=== PATIENT | female | born 1990 | race Caucasian/White ===

== ENCOUNTER 2022-08-16 16:03 | Inpatient (IN) | payer BC, SELFPAY ==
[2022-08-16] VITALS (18 sets, daily range): BP systolic 109–152; BP diastolic 43–88; PULSE 87–117; RESP 18; TEMP 36.8–36.9; BMI 41.5
--- NOTE | 2022-08-16 16:25 | LDADM ---
This patient, Fernanda Chong, was admitted to Labor/Delivery/Recovery 107 on 08/16/22 at 16:03. Plans for labor, pain management and were discussed with patient. Patient/family oriented to hospital policies and general routines including ID bracelet, bed and alarms, visiting hours, pain management, procedures, bathroom and other care routines, personal items, smoking policy, room service/diet and guest tray routines, security routines, and visiting hours. Patient/Family are encouraged to report perceived risks to care and to ask questions if they do not understand what they are told or what they should do. See OBIX for further documentation.
[2022-08-16 16:44] LABS: Basophils Percent Auto 0.2 % (0.2-1.2); Eosinophils Absolute Auto 0.1 K/mm3 (0-0.3); Eosinophils Percent Auto 0.5 % (0-4.4); Hematocrit 36.2 % (37.0-47.0); Hemoglobin 12.7 g/dL (12.0-15.0); Immature Granulocyte Absolute 0.08 K/mm3 (0.00-0.031); Immature Granulocyte Percent A 0.7 % (0-0.5); Lymphocytes Absolute Auto 1.75 K/mm3 (0.9-3.2); Lymphocytes Percent Auto 15.7 % (18.3-44.2); Mean Corpuscular HGB Conc 35.1 g/dl (32-36); Mean Corpuscular Hemoglobin 31.1 pg (26-34); Mean Corpuscular Volume 88.5 fl (80-100); Mean Platelet Volume 11.8 fl (7.4-10.4); Monocytes Absolute Auto 0.6 K/mm3 (0.1-0.6); Monocytes Percent Auto 5.6 % (2.6-8.5); Neutrophils Absolute Auto 8.6 K/mm3 (1.3-6.7); Neutrophils Percent Auto 77.3 % (45.5-73.1); Platelet Count Result 195 k/mm3 (150-375); Red Blood Count 4.09 M/mm3 (4.2-5.4); Red Cell Distribution Width 14.8 % (11.5-14.5); White Blood Count 11.2 K/mm3 (4.5-10.0)
[2022-08-16 16:53] LABS: Uric Acid 4.6 mg/dL (2.5-7.5)
[2022-08-16 16:54] LABS: Alanine Aminotransferase 18 U/L (6-35); Albumin Level 4.1 g/dL (3.5-5.1); Alkaline Phosphatase 212 U/L (38-126); Anion Gap 8 mmol/L (8-16); Aspartate Amino Transferase 23 U/L (14-36); Bilirubin,Total 0.6 mg/dL (0.2-1.3); Blood Urea Nitrogen 5 mg/dL (7-17); Calcium 8.8 mg/dL (8.4-10.2); Carbon Dioxide 20 mmol/L (22-30); Chloride 106 mmol/L (98-107); Estimated CRCL calculation 153 ml/min; Estimated Glomerular Filt Rate > 60; Glucose 111 mg/dL (65-110); Sodium 134 mmol/L (137-145)
[2022-08-16] MEDS: DINOPROSTONE 10 MG VAG INSERT VAGINAL (16:58)
--- NOTE | 2022-08-16 18:03 | WPDANESEPP ---
Anes - Eval Pre Procedure Procedure: Labor epidural Date/Time: 08/16/22 18:03 Surgeon: nan Preop Diagnosis: Abdominal pain with contractions Pre Op Diagnosis: IOL Patient Data Age: 31 Gender: F Height: 1.57 m Weight: 103 kg Last Vital Signs Pulse 97 08/16/22 18:01 BP 142/86 H 08/16/22 18:01 O2 Del Method Room Air 08/16/22 16:24 Allergies Allergy/AdvReac Type Severity Reaction Status Date / Time Sulfa (Sulfonamide Allergy Hives Verified 08/04/22 15:37 Antibiotics) caffeine AdvReac Redness of Verified 08/04/22 15:37 Skin latex AdvReac Itching Verified 08/04/22 15:57 azothiaprine Allergy Nausea and Uncoded 08/04/22 15:37 Vomiting Home Medications Medication Instructions Recorded Confirmed Type docosahexaenoic acid 200 mg capsule 200 mg PO DAILY 08/04/22 08/04/22 History gabapentin 600 mg tablet 600 mg PO HS 08/04/22 08/04/22 History pantoprazole 40 mg tablet,delayed 40 mg PO QAM 08/04/22 08/04/22 History release prednisone 10 mg tablets in a dose 5 - 10 mg PO DAILY 08/04/22 08/04/22 History pack Laboratory Tests 08/16/22 08/16/22 08/16/22 16:20 16:20 16:20 WBC 11.2 K/mm3 H K/mm3 (4.5-10.0) RBC 4.09 M/mm3 L M/mm3 (4.2-5.4) Hgb 12.7 g/dL g/dL (12.0-15.0) Hct 36.2 % L % (37.0-47.0) MCV 88.5 fl fl (80-100) MCH 31.1 pg pg (26-34) MCHC 35.1 g/dl g/dl (32-36) RDW 14.8 % H % (11.5-14.5) Plt Count 195 k/mm3 k/mm3 (150-375) MPV 11.8 fl H fl (7.4-10.4) Immature Gran % (Auto) 0.7 % H % (0-0.5) Neut % (Auto) 77.3 % H % (45.5-73.1) Lymph % (Auto) 15.7 % L % (18.3-44.2) [place] % (Auto) 5.6 % % (2.6-8.5) Eos % (Auto) 0.5 % % (0-4.4) Baso % (Auto) 0.2 % % (0.2-1.2) Lymph # (Auto) 1.75 K/mm3 K/mm3 (0.9-3.2) [place] # (Auto) 0.6 K/mm3 K/mm3 (0.1-0.6) Eos # (Auto) 0.1 K/mm3 K/mm3 (0-0.3) Baso # (Auto) 0.0 K/mm3 K/mm3 (0.0-0.1) Abs Immat Gran (auto) 0.08 K/mm3 H K/mm3 (0.00-0.031) Absolute Neuts (auto) 8.6 K/mm3 H K/mm3 (1.3-6.7) Absolute Nucleated RBC 0.0 K/mm3 K/mm3 (0.0-0.012) Nucleated RBC % 0.0 % % (0.0-0.2) Sodium Potassium Chloride Carbon Dioxide Anion Gap BUN Creatinine Estim Creat Clear Calc Estimated GFR Glucose Uric Acid 4.6 mg/dL mg/dL (2.5-7.5) Calcium Total Bilirubin AST ALT Alkaline Phosphatase Total Protein Albumin RPR Pending 08/16/22 16:20 WBC RBC Hgb Hct MCV MCH MCHC RDW Plt Count MPV Immature Gran % (Auto) Neut % (Auto) Lymph % (Auto) [place] % (Auto) Eos % (Auto) Baso % (Auto) Lymph # (Auto) [place] # (Auto) Eos # (Auto) Baso # (Auto) Abs Immat Gran (auto) Absolute Neuts (auto) Absolute Nucleated RBC Nucleated RBC % Sodium 134 mmol/L L mmol/L (137-145) Potassium 4.0 mmol/L mmol/L (3.4-5.0) Chloride 106 mmol/L mmol/L (98-107) Carbon Dioxide 20 mmol/L L mmol/L (22-30) Anion Gap 8 mmol/L mmol/L (8-16) BUN 5 mg/dL L mg/dL (7-17) Creatinine 0.50 mg/dL L mg/dL (0.7-1.0) Estim Creat Clear Calc 153 ml/min ml/min Estimated GFR > 60 (59 - ) Glucose 111 mg/dL H mg/dL (65-110) Uric Acid Calcium 8.8 mg/dL mg/dL (8.4-10.2) Total Bilirubin 0.6 mg/dL mg/dL (0.2-1.3) AST 23 U/L U/L (14-36) ALT 18 U/L U/L (6-35) Alkaline Phosphatase 212 U/L H U/L (38-126) Total Protein 8.0 g/dL g/dL (6.3-8.2) Albumin 4.1 g/
[2022-08-16] MEDS: GABAPENTIN 300 MG CAPSULE 600 MG PO (23:08)
[2022-08-17] VITALS (229 sets, daily range): BP systolic 85–163; BP diastolic 45–101; PULSE 52–150; RESP 16; TEMP 36.3–37.3; O2SAT 75–100
[2022-08-17] MEDS: OXYTOCIN 30 UNITS/NS 500 ML 30 UNITS/500 ML BAG 6 UNITS IV CONT (06:26)
[2022-08-17] MEDS: LACTATED RINGERS 1,000 ML 125 ML IV CONT ×3 (06:26→19:30)
--- NOTE | 2022-08-17 07:20 | WPDOBADMIT ---
Obstetrics - Admit Note Admission Note: record reviewed. No pertinent additions to the history and/or any subsequent changes in the physical findings that are not consistent with the expected course of the were found. Pt admitted yesterday for IOL, GHTN, bp's normotensive currently with category 1 heart tracing, AROM moderate amount of clear odorless fluid, SVE 1/50/-2, anticipate vaginal delivery Additions to the history and/or subsequent changes in the physical findings follow. None.
[2022-08-17 09:32] LABS: Rapid Plasma Reagin Non-Reactive (NonReactive)
[2022-08-18] VITALS (228 sets, daily range): BP systolic 97–135; BP diastolic 35–103; PULSE 72–173; RESP 16–20; TEMP 36.6–38.6; O2SAT 97–100
[2022-08-18] MEDS: LACTATED RINGERS 1,000 ML 125 ML IV CONT ×3 (04:00→13:05)
[2022-08-18] MEDS: AMPICILLIN 2 GM/NS 100 ML 2 GM/100 ML BAG IVPB (06:14)
[2022-08-18] MEDS: GENTAMICIN 80MG/SOD CHL 50 ML 80 MG/50 ML BAG 100 MG IVPB (08:32)
[2022-08-18] MEDS: SODIUM CHLORIDE 0.9% IV 300 ML 600 ML I-UTERINE (08:36)
--- NOTE | 2022-08-18 08:46 | PM.OBPNVD ---
OB - PN: Subj Subjective Date/time seen: 08/18/22 [id number] 1 AT 37 WEEKS INDUCED FOR GESTATIONAL HYPERTENSION / POSSIBLE PREECLAMPSIA. Has had some diminished variability of the heart rate tracing. There is still an overall reassuring her heart rate tracing. There has been an persistent late decelerations ovary significant period of time. There was also an elevated body temperature which may have an affect on the variability. Antibiotics have been started. delivery was discussed with the patient. We agreed to continue observation continue induction of labor. She has made some significant progress in the proceeding several hours. Reassess in 3-1/2 hours in consider course at that time. Expectant management and consideration of changes in the status. OB - PN: Obj Data Labs 08/16/22 16:20 08/16/22 16:20 Labs: Laboratory Results - last 24 hr 08/16/22 16:20 RPR Non-reactive OB - PN A/P Assessment and Plan (1) Gestational hypertension: Code(s): O13.9 - Gestational [-induced] hypertension without significant proteinuria, unspecified trimester Status: Acute (2) : Code(s): Z34.90 - Encounter for supervision of normal , unspecified, unspecified trimester Status: Acute Time Spent With Patient Time: Total time spent is greater than 50% in coordination of care (as documented) at patient's floor/unit and/or counseling patient:
[2022-08-18] MEDS: AMPICILLIN 1 GM/NS 50 ML 1 GM/50 ML BAG IVPB (10:23)
[2022-08-18] MEDS: OXYTOCIN 30 UNITS/NS 500 ML 30 UNITS/500 ML BAG 999 UNITS IV CONT (14:44)
--- NOTE | 2022-08-18 14:51 | PM.OBPRVD ---
OB - Delivery Note Procedure Delivery date: 08/18/22 Procedure: Events: Gestational Hypertension Induction method: AROM, Per Pitocin Protocol and Per Cervidil Protocol Delivery monitor: External FHT and Internal Uterine Episiotomy description: None Laceration Description: Perineal - 2nd Degree Delivery repair: vicryl Quantitative Blood Loss (ml): 67 Anesthesia type: Epidural Disposition: Floor Complications: none Baby Date of : 08/18/22 Time of : 14:22 Weeks of gestation at delivery: 37 Weight (pounds): 6 Weight (ounces): 1 presentation: vertex Placenta delivery description: Spontaneous Cord Vessel Description: 3 Vessels
[2022-08-18] MEDS: IBUPROFEN 600 MG TABLET PO (20:10)
[2022-08-18] MEDS: GABAPENTIN 300 MG CAPSULE 600 MG PO (20:56)
[2022-08-19 04:55] VITALS: BP 107/62; PULSE 81; RESP 20; TEMP 36.4; O2SAT 98
[2022-08-19 05:22] LABS: Hemoglobin 11.4 g/dL (12.0-15.0)
[2022-08-19] MEDS: PANTOPRAZOLE 40 MG TABLET PO (10:15)
[2022-08-19] MEDS: IBUPROFEN 600 MG TABLET PO (10:15)
[2022-08-19] MEDS: MULTIVIT/MIN/PREN/FOL AC/IRON TABLET 1 TAB PO (10:15)
--- NOTE | 2022-08-19 10:34 | PM.OBPNVD ---
OB - PN: Subj Subjective Date/time seen: 08/19/22 10:34 Patient comments: no complaints baby status: doing well OB - PN: Obj Data Labs 08/19/22 05:06 08/16/22 16:20 Labs: Laboratory Results - last 24 hr 08/19/22 05:06 Hgb 11.4 L Hct 34.0 L OB - PN A/P Plan day: 1 Plan: routine care Comments: Pt desires discharge to home d/t baby at [facility]. She has agreed to stay until 24 hours and if she is stable we can consider discharge. I had a very in depth conversation about pih precautions. She will monitor bp at home and call if any elevation, if any symptoms, or something doesn't feel right to her. She will return tomorrow morning for pp bp check. Pt verbalized understanding and will let us know if there is any problem. Time Spent With Patient Time: Total time spent is greater than 50% in coordination of care (as documented) at patient's floor/unit and/or counseling patient: Time with patient: less than 15 minutes Review of Systems Review of Systems: All systems reviewed & are unremarkable except as noted in HPI and below Exam Narrative: Fundus firm and vaginal flow controlled. No lower ext redness, warmth, or edema. Negative homans. Denies h/a, v/d or e/p. Reflexes normal. Const: General: comfortable Chest: Breast/axilla inspection: normal inspection of the breasts Resp: Effort & Inspection: normal respiratory effort Cardio: Rate: regular rate GI: GI Palp: Yes Soft to palpation Psych: Appearance: grossly normal Affect: normal affect Attitude: cooperative Thought content: Yes Normal thought content present Judgement: Good judgement present (Psych)
--- NOTE | 2022-08-19 10:37 | PM.OBDSVD ---
DS: Admitting Diagnosis Discharge Date 07/19/22 Admitting Diagnosis Induction of labor OB - DS: Summary OB Procedures : PIH Mgmt OB Procedures Intrapartum: Spontaneous Vag Delivery OB Procedures: : None Time Spent with Patient Time attestation: Total time spent providing and/or coordinating discharge services: DS: Data Data Completed and Pending Pending studies at discharge: Pending at discharge 08/18/22 14:33 Surgical [PTH] Routine Labs on day of discharge: Labs from last 24 hours 08/19/22 05:06 Hgb 11.4 L Hct 34.0 L Discharge Plan Discharge Attending physician on discharge: Selina Jackman Discharging Clinician: Shante Lal Patient Disposition: Home, Self-Care Activity: pelvic rest Diet: as tolerated Discharge Instructions: Education: Mom and Baby Guide Given to: Mother Follow-Up: Call your delivering provider's office for an appointment to be seen in: 4 Weeks Mom should come to the [facility] for the follow-up appointment. Appointment Date/Time: August 20, 2022 at 9:00 am What to expect at your follow-up visit: Blood Pressure Check Physical Assessment Call [phone] if you are unable to keep your appointment time. BREAST CARE: * Wear a snug supportive bra. * For engorgement discomfort: Breast Feeding: * Apply warm moist washcloths * Express milk as needed to relieve engorgement * Wear loose clothing Bottle Feeding: * May apply ice packs * For sore nipples: * Identify correct latch-on * Apply warm moist washcloths before and after nursing * Air dry nipples after nursing * May apply Lansinoh cream to nipples EPISIOTOMY/PERINEAL CARE: * Until bleeding stops, use your ranjit bottle after urinating * Change your pad frequently throughout the day * You may take sitz baths several times a day (fill your bathtub with warm water and soak for 20 minutes.) Do NOT bathe in the water * No tub baths until seen by your physician - You may shower ACTIVITY: * Rest as much as possible. * Do not exercise or lift anything heavier than your baby * Avoid stairs or driving as much as possible for about 2 weeks. * Do not put anything into the vagina. No douching, tampons, or sexual activity until seen by physician. NOTIFY PHYSICIAN IF YOU HAVE ANY QUESTIONS OR IF ANY OF THE FOLLOWING SYMPTOMS OCCUR: * If your vaginal area becomes red, swollen, or more painful than what you have experienced in the hospital. * If your vaginal bleeding becomes foul smelling. * If your vaginal bleeding becomes more heavy than a period or if your bleeding changes from pink to bright red. However, you may pass an occasional walnut-sized clot once or twice for the first week . * If you experience a sharp, shooting pain in your calves. * If you discover a hard, reddened area on your breast or if you experience flu-like symptoms. DIET: * Eat regular, well-balanced meals. * Drink plenty of fluids daily. If , drink to thirst. Patient Instructions: Antibiotic Form Stand Alone Forms: General Discharge Information Follow-up/Referrals: Selina Jackman MD [Physician] - Discharge Medications: No Action gabapentin 600 mg Tablet 600 mg PO HS prednisone 10 mg Tablets,Dose Pack 5 - 10 mg PO DAILY Rx Instructions: as needed pantoprazole 40 mg Tablet,Delayed Release (Dr/Ec) 40 mg PO QAM DHA 200 mg Capsule 200 mg PO DAILY Date of admission: 08/16/22 16:03 Primary Care Provider: PHYSICIAN,FINANCIAL RECORDING CLERK Admitting Provider: Rema Jameson Attending physician on admission: Rema Jameson Condition: Stable
[2022-08-19 10:47] VITALS: BP 118/72; PULSE 81; PULSE 87; RESP 18; RESP 20; TEMP 36.7; O2SAT 97; O2SAT 98
--- NOTE | 2022-08-19 10:53 | PC.NURSE ---
Patient viewed the discharge video Mother & Baby Care, The First Two Weeks . Patient was given the opportunity and encouraged to ask questions. Patient verbalized understanding of information shared and has been given the mother/baby guide for home reference.
[2022-08-19] MEDS: ACETAMINOPHEN 325 MG TABLET 650 MG PO (14:00)
[2022-08-19 15:03] VITALS: BP 132/76; PULSE 89; RESP 18; TEMP 36.5; O2SAT 99
[2022-08-20 08:59] VITALS: BP 137/69; PULSE 73; RESP 18; TEMP 36.4; O2SAT 98
== END 2022-08-19 15:30 | disposition home or self-care (01) | DRG 807 ==
LOC: ANHLDR 08-17 09:44 → ANHOB2 08-18 17:20
PROVIDERS: Obstetrics & Gynecology; Admitting Provider Obstetrics & Gynecology; Visit Provider Obstetrics & Gynecology
DX: O13.4 Gestational [pregnancy-induced] hypertension without significant proteinuria, complicating childbirth (principal); Z37.0 Single live birth; O76 Abnormality in fetal heart rate and rhythm complicating labor and delivery; O70.1 Second degree perineal laceration during delivery; O42.92 Full-term premature rupture of membranes, unspecified as to length of time between rupture and onset of labor; O63.9 Long labor, unspecified; O69.81X0 Labor and delivery complicated by cord around neck, without compression, not applicable or unspecified; Z3A.37 37 weeks gestation of pregnancy
CPT/HCPCS: 36415; 80053; 84550; 85014; 85018; 85025; 86592; 86850; 86900; 86901; 88307; A9270; J0131; J0290; J1580; J2590; J2795; J7030; J7120

== ENCOUNTER 2022-08-22 11:04 | Observation (INO) | payer BC, SELFPAY ==
[2022-08-22] VITALS (19 sets, daily range): BP systolic 107–160; BP diastolic 60–89; PULSE 49–72; RESP 14–19; TEMP 36.3; O2SAT 98–99
--- NOTE | ~2022-08-22 | US_ITS ---
EXAMINATION: US venous doppler UE RT DATE: 08/22/2022 13:30 INDICATION: Right upper extremity swelling TECHNIQUE: Grayscale ultrasound images without and with compression and Doppler ultrasound images of the right upper extremity veins were obtained. COMPARISON: None. FINDINGS: There is thrombus in the distal cephalic vein. The right internal jugular vein, subclavian vein, axil amina vein, brachial veins, basilic vein, radial vein, and ulnar vein are patent. IMPRESSION: 1. Thrombosis of the distal cephalic vein. These findings were discussed with patient's nurse Rosenda at 1335 hours on 08/22/2022. Reviewed, dictated and finalized at location B. CTION MOLDING MACHINE OPERATOR IMPRESSION: 1. Thrombosis of the distal cephalic vein. These findings were discussed with mando estrada's nurse Herzog at 1335 hours on 08/22/2022.
[2022-08-22] MEDS: KETOROLAC 30 MG/ML VIAL (*BKC) IV PUSH (13:40)
[2022-08-22 13:44] LABS: Basophils Absolute Auto 0.1 K/mm3 (0.0-0.1); Basophils Percent Auto 0.5 % (0.2-1.2); Eosinophils Absolute Auto 0.2 K/mm3 (0-0.3); Eosinophils Percent Auto 2.1 % (0-4.4); Hematocrit 38.6 % (37.0-47.0); Hemoglobin 12.9 g/dL (12.0-15.0); Immature Granulocyte Absolute 0.13 K/mm3 (0.00-0.031); Immature Granulocyte Percent A 1.2 % (0-0.5); Lymphocytes Absolute Auto 2.45 K/mm3 (0.9-3.2); Lymphocytes Percent Auto 22.2 % (18.3-44.2); Mean Corpuscular HGB Conc 33.4 g/dl (32-36); Mean Corpuscular Hemoglobin 29.8 pg (26-34); Mean Corpuscular Volume 89.1 fl (80-100); Monocytes Absolute Auto 0.5 K/mm3 (0.1-0.6); Monocytes Percent Auto 4.4 % (2.6-8.5); Neutrophils Absolute Auto 7.7 K/mm3 (1.3-6.7); Neutrophils Percent Auto 69.6 % (45.5-73.1); Platelet Count Result 268 k/mm3 (150-375); Red Blood Count 4.33 M/mm3 (4.2-5.4); Red Cell Distribution Width 14.1 % (11.5-14.5)
[2022-08-22 13:50] LABS: Alanine Aminotransferase 42 U/L (6-35); Albumin Level 4.2 g/dL (3.5-5.1); Alkaline Phosphatase 150 U/L (38-126); Anion Gap 5 mmol/L (8-16); Aspartate Amino Transferase 37 U/L (14-36); Bilirubin,Total 0.5 mg/dL (0.2-1.3); Blood Urea Nitrogen 9 mg/dL (7-17); Calcium 9.2 mg/dL (8.4-10.2); Carbon Dioxide 29 mmol/L (22-30); Chloride 103 mmol/L (98-107); Estimated CRCL calculation 124 ml/min; Estimated Glomerular Filt Rate > 60; Glucose 78 mg/dL (65-110); Potassium 3.8 mmol/L (3.4-5.0); Sodium 137 mmol/L (137-145)
[2022-08-22 13:58] LABS: Partial Thromboplastin Time 23.9 SECONDS (22.3-36.8); Prothrombin Time 12.3 Seconds (11.1-14.7)
--- NOTE | 2022-08-22 15:26 | ED.GENADULT ---
HPI - General Adult General Chief complaint: Extremity Problem,Nontraumatic Stated complaint: clot in right forearm? 4 days post Time Seen by Provider: 08/22/22 11:57 History of Present Illness HPI narrative: Patient is a 31-year-old female who presents ER with multiple issues. First issue is swelling and discomfort to her right forearm. Patient recently had a baby and had an IV in the same area. She is concerned she may have a clot. No fevers or chills or sweats. No chest pain or chest pressure or difficulty breathing. Patient reports she was induced due to elevated blood pressures. She reports that she is not on any blood pressure medication. She reports today also that she is having colorful aura in her eyes since worsened by light. She also has history of migraine which she has aura with as well but she does not yet have a migraine headache but does have a mild aching headache. Related Data Home Medications Medication Instructions Recorded Confirmed docosahexaenoic acid 200 mg capsule 200 mg PO DAILY 08/04/22 08/04/22 gabapentin 600 mg tablet 600 mg PO HS 08/04/22 08/04/22 pantoprazole 40 mg tablet,delayed 40 mg PO QAM 08/04/22 08/04/22 release prednisone 10 mg tablets in a dose 5 - 10 mg PO DAILY 08/04/22 08/04/22 pack Allergies Allergy/AdvReac Type Severity Reaction Status Date / Time Sulfa (Sulfonamide Allergy Hives Verified 08/04/22 15:37 Antibiotics) caffeine AdvReac Redness of Verified 08/04/22 15:37 Skin latex AdvReac Itching Verified 08/04/22 15:57 azothiaprine Allergy Nausea and Uncoded 08/04/22 15:37 Vomiting Review of Systems Review of Systems: All systems reviewed & are unremarkable except as noted in HPI and below Constitutional: Constitutional: Denies chills, Denies fatigue and Denies fever(s) ENT: Denies nasal congestion and Denies sore throat Cardiovascular: Cardiovascular: Denies chest pain, Denies rapid heart rate and Denies radiating jaw, neck or arm pain Respiratory: Respiratory: Denies cough and Denies dyspnea Gastrointestinal: Gastrointestinal: Denies abdominal pain, Denies nausea and Denies vomiting Neurologic: Reports headache(s), Denies focal weakness and Denies numbness Comments: visual aura PMFSH Past Medical History Medical History (Updated 08/22/22 @ 21:52 by Fernando Link MD) Anxiety GERD (gastroesophageal reflux disease) Gestational HTN Migraines Morbid obesity Rheumatoid arthritis Family History Family History Mother Disc degeneration History of cholecystectomy Bipolar 1 disorder Anemia Autoimmune disorder Sibling Bipolar 1 disorder Anemia Father High cholesterol Hypertension Anemia Social History Social History Smoking status: Never smoker Substance use: never Lack of Transportation: No Lack of Food: Never True Current Housing: I Have Housing Concerned About Future Housing: No Difficulty Paying Gas/Electric Bills: No Difficulty Paying for Meds: No Currently Unemployed: No Education: High School Diploma/GED Difficulty w/ Childcare or Family Care: No Spiritual care concerns: No Exam Narrative: GENERAL: Well-appearing, well-nourished, and in no acute distress. HEAD: Normocephalic, atraumatic. EYES: PERRLA and EOMI. ENT: Mucous membranes moist. CHEST: Clear to auscultation. No respiratory distress. HEART: Regular rate and rhythm. Normal peripheral pulses. ABDOMEN: Soft, nontender, nondistended. EXTREMITIES: Normal range of motion. Swelling right forearm with palpable cord over the volar aspect. SKIN: Warm, dry, no rash. NEURO: No focal deficits. Alert and oriented x3. PSYCH: Normal mood and affect. Course Course Emergency Course: Discussed with Dr. Jameson. Recommends admission to OB for further evaluation and likely mag treatment. Patient aware of diagnosis and treatment plan. Also discussed conserv
[2022-08-22 16:39] LABS: Influenza A QL RT-PCR Negative (Negative); Influenza B QL RT-PCR Negative (Negative); SARS-CoV-2 RNA PCR Negative
[2022-08-22 19:41] LABS: Basophils Percent Auto 0.3 % (0.2-1.2); Eosinophils Absolute Auto 0.3 K/mm3 (0-0.3); Eosinophils Percent Auto 2.5 % (0-4.4); Hematocrit 35.8 % (37.0-47.0); Hemoglobin 12.1 g/dL (12.0-15.0); Immature Granulocyte Absolute 0.08 K/mm3 (0.00-0.031); Immature Granulocyte Percent A 0.8 % (0-0.5); Lymphocytes Absolute Auto 2.42 K/mm3 (0.9-3.2); Lymphocytes Percent Auto 24.2 % (18.3-44.2); Mean Corpuscular HGB Conc 33.8 g/dl (32-36); Mean Corpuscular Hemoglobin 30.6 pg (26-34); Mean Corpuscular Volume 90.4 fl (80-100); Monocytes Absolute Auto 0.6 K/mm3 (0.1-0.6); Monocytes Percent Auto 5.9 % (2.6-8.5); Neutrophils Absolute Auto 6.7 K/mm3 (1.3-6.7); Neutrophils Percent Auto 66.3 % (45.5-73.1); Platelet Count Result 247 k/mm3 (150-375); Red Blood Count 3.96 M/mm3 (4.2-5.4); Red Cell Distribution Width 14.3 % (11.5-14.5)
[2022-08-22 19:53] LABS: Alanine Aminotransferase 35 U/L (6-35); Albumin Level 3.8 g/dL (3.5-5.1); Alkaline Phosphatase 136 U/L (38-126); Anion Gap 6 mmol/L (8-16); Aspartate Amino Transferase 31 U/L (14-36); Bilirubin,Total 0.5 mg/dL (0.2-1.3); Blood Urea Nitrogen 9 mg/dL (7-17); Calcium 8.6 mg/dL (8.4-10.2); Carbon Dioxide 26 mmol/L (22-30); Chloride 106 mmol/L (98-107); Estimated CRCL calculation 124 ml/min; Estimated Glomerular Filt Rate > 60; Glucose 79 mg/dL (65-110); Potassium 3.7 mmol/L (3.4-5.0); Sodium 138 mmol/L (137-145)
[2022-08-23] VITALS (8 sets, daily range): BP systolic 129–152; BP diastolic 69–81; PULSE 55–70; RESP 16; TEMP 36.6; O2SAT 96–100
[2022-08-23 07:20] LABS: Basophils Percent Auto 0.3 % (0.2-1.2); Eosinophils Absolute Auto 0.2 K/mm3 (0-0.3); Eosinophils Percent Auto 2.4 % (0-4.4); Hemoglobin 12.4 g/dL (12.0-15.0); Immature Granulocyte Absolute 0.08 K/mm3 (0.00-0.031); Immature Granulocyte Percent A 0.9 % (0-0.5); Lymphocytes Absolute Auto 1.92 K/mm3 (0.9-3.2); Lymphocytes Percent Auto 20.7 % (18.3-44.2); Mean Corpuscular HGB Conc 33.5 g/dl (32-36); Mean Corpuscular Hemoglobin 30.2 pg (26-34); Mean Platelet Volume 10.5 fl (7.4-10.4); Monocytes Absolute Auto 0.5 K/mm3 (0.1-0.6); Monocytes Percent Auto 5.6 % (2.6-8.5); Neutrophils Absolute Auto 6.5 K/mm3 (1.3-6.7); Neutrophils Percent Auto 70.1 % (45.5-73.1); Platelet Count Result 244 k/mm3 (150-375); Red Blood Count 4.11 M/mm3 (4.2-5.4); Red Cell Distribution Width 14.2 % (11.5-14.5); White Blood Count 9.3 K/mm3 (4.5-10.0)
[2022-08-23 07:33] LABS: Alanine Aminotransferase 37 U/L (6-35); Albumin Level 3.7 g/dL (3.5-5.1); Alkaline Phosphatase 134 U/L (38-126); Anion Gap 8 mmol/L (8-16); Aspartate Amino Transferase 30 U/L (14-36); Bilirubin,Total 0.6 mg/dL (0.2-1.3); Blood Urea Nitrogen 9 mg/dL (7-17); Calcium 8.7 mg/dL (8.4-10.2); Carbon Dioxide 23 mmol/L (22-30); Chloride 109 mmol/L (98-107); Estimated CRCL calculation 124 ml/min; Estimated Glomerular Filt Rate > 60; Glucose 77 mg/dL (65-110); Potassium 3.9 mmol/L (3.4-5.0); Sodium 140 mmol/L (137-145)
--- NOTE | 2022-08-23 08:20 | PM.IMHP ---
H&P: HPI History of Present Illness Date/Time: 08/23/22 08:20 Chief Complaint: Elevated blood pressure Narrative: 31-year-old female who went to the emergency department for phlebitis was found to have elevated blood pressures. She came to Labor and delivery for observation. Her observation lasted about a 15 hours. Her blood pressures were stable but elevated. She had a headache initially but it resolved with Tylenol. It was a tension headache and not a frontal throbbing headache. She denied any vision changes currently but did see some flutters yesterday. She denies any epigastric pain. She had some edema but it improved with resting. she denies any chest pain or shortness of breath. She denies any nausea, vomiting, fever, chills. She will be discharged on 200 labetalol. Labetalol was used. She was observed and labetalol. And then discharge. Review of Systems Review of Systems: All systems reviewed & are unremarkable except as noted in HPI and below Constitutional: Constitutional: Denies chills, Denies fatigue, Denies fever(s) and Denies weakness Eyes: Eyes: Denies blurry vision, Denies change in vision, Denies loss of peripheral vision, Denies loss of vision, Denies other visual disturbances and Denies eye pain ENT: Denies vertigo, Denies dizziness, Denies hearing loss, Denies mouth pain, Denies nasal obstruction, Denies neck mass and Denies neck pain Cardiovascular: Cardiovascular: Denies chest pain, Denies diaphoresis, Denies syncope, Denies leg edema and Denies dyspnea Respiratory: Respiratory: Denies chest congestion, Denies cough, Denies hemoptysis, Denies dyspnea and Denies wheezing Gastrointestinal: Gastrointestinal: Denies abdominal pain, Denies constipation, Denies diarrhea, Denies nausea and Denies vomiting Genitourinary: Genitourinary: Denies hematuria, Denies change in libido, Denies nocturia, Denies genital lesions, Denies flank pain and Denies urinary urgency Musculoskeletal: Musculoskeletal: Denies abnormal gait, Denies back pain, Denies myalgias, Denies arthralgias, Denies joint swelling, Denies muscle weakness and Denies neck pain Integumentary/Breasts: Skin/Breast: Denies swelling, Denies breast pain, Denies breast mass, Denies dry skin, Denies nipple discharge, Denies unusual bruising and Denies jaundice Neurologic: Denies Neuro-related abnormal movements, Denies Abnormal speech present, Denies abnormal gait, Denies behavioral changes, Denies confusion, Denies vertigo, Denies dizziness, Denies syncope, Denies loss of vision, Denies memory loss, Denies convulsions and Denies weakness Psychiatric: Psychiatric: Denies abnormal sleep pattern, Denies behavioral changes, Denies change in libido, Denies confusion, Denies depression, Denies anhedonia and Denies memory loss Endocrine: Endocrine: Reports no additional endocrine complaints, Denies change in libido and Denies fatigue Hematologic/Lymphatic: Hematologic/Lymphatic: Reports no additional hematologic/lymphatic complaints Allergic/Immunologic: Allergic/Immunologic: Reports no additional allergic/immunologic complaints and Denies wheezing PMFSH Past Medical History Medical History (Updated 08/23/22 @ 08:23 by Selina Jackman MD) Anxiety GERD (gastroesophageal reflux disease) Gestational HTN Migraines Morbid obesity Rheumatoid arthritis Family History Family History Mother Disc degeneration History of cholecystectomy Bipolar 1 disorder Anemia Autoimmune disorder Sibling Bipolar 1 disorder Anemia Father High cholesterol Hypertension Anemia Social History Social History Smoking status: Never smoker Substance use: never Lack of Transportation: No Lack of Food: Never True Current Housing: I Have Housing Concerned About Future Housing: No Difficulty Paying Gas/Electric Bills: No Difficulty Paying for Meds: No Currently Unemployed: No Education: H
[2022-08-23] MEDS: LABETALOL HCL 100 MG TABLET 200 MG PO (08:39)
--- NOTE | 2022-09-13 21:56 | PM.OBTRLD ---
OB - Triage/Final Diagnosis Visit Information Comments/Additional reasons for admission: I have assessed the risk for this patient, Fernanda Chong, and determined that she would benefit from observation care. Evaluation Laboratory results: Laboratory Tests 08/22/22 08/22/22 08/22/22 13:34 13:34 13:34 WBC 11.0 H RBC 4.33 Hgb 12.9 Hct 38.6 MCV 89.1 MCH 29.8 MCHC 33.4 RDW 14.1 Plt Count 268 MPV 11.0 H Immature Gran % (Auto) 1.2 H Neut % (Auto) 69.6 Lymph % (Auto) 22.2 [place] % (Auto) 4.4 Eos % (Auto) 2.1 Baso % (Auto) 0.5 Lymph # (Auto) 2.45 [place] # (Auto) 0.5 Eos # (Auto) 0.2 Baso # (Auto) 0.1 Abs Immat Gran (auto) 0.13 H Absolute Neuts (auto) 7.7 H Absolute Nucleated RBC 0.0 Nucleated RBC % 0.0 PT 12.3 INR 1.0 APTT 23.9 Sodium 137 Potassium 3.8 Chloride 103 Carbon Dioxide 29 Anion Gap 5 L BUN 9 Creatinine 0.60 L Estim Creat Clear Calc 124 Estimated GFR > 60 Glucose 78 Calcium 9.2 Total Bilirubin 0.5 AST 37 H ALT 42 H Alkaline Phosphatase 150 H Total Protein 8.0 Albumin 4.2 Influenza A (RT-PCR) Influenza B (RT-PCR) SARS-CoV-2 RNA (RT-PCR) 08/22/22 08/22/22 08/22/22 15:59 19:33 19:33 WBC 10.0 RBC 3.96 L Hgb 12.1 Hct 35.8 L MCV 90.4 MCH 30.6 MCHC 33.8 RDW 14.3 Plt Count 247 MPV 11.0 H Immature Gran % (Auto) 0.8 H Neut % (Auto) 66.3 Lymph % (Auto) 24.2 [place] % (Auto) 5.9 Eos % (Auto) 2.5 Baso % (Auto) 0.3 Lymph # (Auto) 2.42 [place] # (Auto) 0.6 Eos # (Auto) 0.3 Baso # (Auto) 0.0 Abs Immat Gran (auto) 0.08 H Absolute Neuts (auto) 6.7 Absolute Nucleated RBC 0.0 Nucleated RBC % 0.0 PT INR APTT Sodium 138 Potassium 3.7 Chloride 106 Carbon Dioxide 26 Anion Gap 6 L BUN 9 Creatinine 0.60 L Estim Creat Clear Calc 124 Estimated GFR > 60 Glucose 79 Calcium 8.6 Total Bilirubin 0.5 AST 31 ALT 35 Alkaline Phosphatase 136 H Total Protein 7.0 Albumin 3.8 Influenza A (RT-PCR) Negative Influenza B (RT-PCR) Negative SARS-CoV-2 RNA (RT-PCR) Negative 08/23/22 08/23/22 06:31 06:31 WBC 9.3 RBC 4.11 L Hgb 12.4 Hct 37.0 MCV 90.0 MCH 30.2 MCHC 33.5 RDW 14.2 Plt Count 244 MPV 10.5 H Immature Gran % (Auto) 0.9 H Neut % (Auto) 70.1 Lymph % (Auto) 20.7 [place] % (Auto) 5.6 Eos % (Auto) 2.4 Baso % (Auto) 0.3 Lymph # (Auto) 1.92 [place] # (Auto) 0.5 Eos # (Auto) 0.2 Baso # (Auto) 0.0 Abs Immat Gran (auto) 0.08 H Absolute Neuts (auto) 6.5 Absolute Nucleated RBC 0.0 Nucleated RBC % 0.0 PT INR APTT Sodium 140 Potassium 3.9 Chloride 109 H Carbon Dioxide 23 Anion Gap 8 BUN 9 Creatinine 0.60 L Estim Creat Clear Calc 124 Estimated GFR > 60 Glucose 77 Calcium 8.7 Total Bilirubin 0.6 AST 30 ALT 37 H Alkaline Phosphatase 134 H Total Protein 7.0 Albumin 3.7 Influenza A (RT-PCR) Influenza B (RT-PCR) SARS-CoV-2 RNA (RT-PCR) Final Diagnosis (1) Elevated liver enzymes: Code(s): R74.8 - Abnormal levels of other serum enzymes Status: Acute
== END 2022-08-23 11:28 | disposition home or self-care (01) ==
LOC: ANHED 15:27 → ANHOBPP 17:00
PROVIDERS: Advanced Practice Midwife; Admitting Provider Obstetrics & Gynecology; Emergency Provider Emergency Medicine; Visit Provider Obstetrics & Gynecology
DX: O13.5 Gestational [pregnancy-induced] hypertension without significant proteinuria, complicating the puerperium (principal); O87.0 Superficial thrombophlebitis in the puerperium; O90.89 Other complications of the puerperium, not elsewhere classified; M79.89 Other specified soft tissue disorders; Z20.822 Contact with and (suspected) exposure to COVID-19; M79.631 Pain in right forearm; Z79.52 Long term (current) use of systemic steroids; Z79.899 Other long term (current) drug therapy
CPT/HCPCS: 36415; 80053; 85025; 85610; 85730; 87636; 93971; 96374; 99285; A9270; G0378; J1885

== ENCOUNTER 2023-06-12 16:18 | Outpatient (CLI) | payer BC, SELFPAY ==
[2023-06-12 18:49] LABS: Thyroid Stimulating Hormone Reflex 0.784 uIU/mL (0.465-4.68)
[2023-06-18 04:51] LABS: Immunoglobulin A 166 mg/dL (47-310); TTG IGA AB <1.0 U/mL (<15.0)
== END 2023-06-12 16:19 | disposition home or self-care (01) ==
PROVIDERS: PCP Internal Medicine; Visit Provider Nurse Practitioner
DX: K21.9 Gastro-esophageal reflux disease without esophagitis (principal); K58.0 Irritable bowel syndrome with diarrhea; K62.5 Hemorrhage of anus and rectum; K80.20 Calculus of gallbladder without cholecystitis without obstruction; R13.10 Dysphagia, unspecified
CPT/HCPCS: 36415; 82784; 84443; 86364

== ENCOUNTER 2023-07-11 01:31 | Day surgery (SDC) | payer BC, SELFPAY ==
[2023-06-14 16:04] VITALS: BMI 35.3
--- NOTE | 2023-07-09 10:02 | SUR.PREOP ---
Patient called regarding upcoming procedure. left voicemail with procedure date and time and contact for questions.
[2023-07-11 09:44] VITALS: BP 138/98; PULSE 128; RESP 18; TEMP 35.9; O2SAT 98
--- NOTE | 2023-07-11 09:51 | SUR.PREOP ---
PT VITAL SIGNS: B/P 138/98, HR 128. PT STATES SHE HAS NOT FELT WELL SINCE TAKING MAGNESIUM CITRATE FOR BOWEL PREP, FEELS FLUSHED, STATES SHE HAD RED PATCHES ON SKIN, EXHAUSTED, PT STATES SHE HAS NOT RAN A FEVER AT ALL. PT A&0 X3 AND T[address]IVE. DR WESTBROOK NOTIFIED OF VITAL SIGNS AND SYMPTOMS, ALSO NOTIFIED OF PT'S HISTORY OF AUTOIMMUNE DISEASE AND THAT PT IS DUE FOR AN INFUSION. PT STATES PRIOR TO HER INFUSION PT BEGINS TO HAVE FLU LIKE SYMPTOMS AND THIS IS HER NORMAL. DR WESTBROOK TO SEE PT. NO NEW ORDERS RECEIVED.
[2023-07-11] MEDS: LACTATED RINGERS 1,000 ML 150 ML IV CONT (10:09)
--- NOTE | 2023-07-11 10:14 | WPDANESEPPF ---
Anes - Initial Pre Proc Eval Procedure: Operation Date: 07/11/23 11:00 Proposed Procedures p Esophagogastroduodenoscopy & Colonoscopy - Michael Barber MD Date/Time: 07/11/23 10:14 Surgeon: Michael Barber MD Pre Op Diagnosis: GERD,Dysphagia,IBS-diarrhea Patient Data Age: 32 Gender: F Height: 1.57 m Weight: 85.7 kg Last Vital Signs Temp 96.6 F L 07/11/23 09:44 Pulse 128 H 07/11/23 09:44 Resp 18 07/11/23 09:44 BP 138/98 H 07/11/23 09:44 Pulse Ox 98 07/11/23 09:44 O2 Del Method Room Air 07/11/23 09:44 Allergies Allergy/AdvReac Type Severity Reaction Status Date / Time Sulfa (Sulfonamide Allergy Hives Verified 07/11/23 09:42 Antibiotics) caffeine AdvReac Redness of Verified 07/11/23 09:42 Skin latex AdvReac Itching Verified 07/11/23 09:42 azothiaprine Allergy Nausea and Uncoded 07/11/23 09:42 Vomiting Home Medications Medication Instructions Recorded Confirmed Type gabapentin 600 mg tablet 600 mg PO HS 08/04/22 06/14/23 History pantoprazole 40 mg tablet,delayed 40 mg PO QAM 08/04/22 06/14/23 History release prednisone 10 mg tablets in a dose 5 - 10 mg PO PRN PRN Inflammation 08/04/22 06/14/23 History pack ibuprofen 400 mg tablet 400 mg PO Q6HR 08/23/22 06/14/23 Rx rifaximin 550 mg tablet (Xifaxan) 550 mg PO TID 14 days #42 tabs 06/12/23 06/14/23 Rx meloxicam 7.5 mg tablet 7.5 mg PO PRN PRN Pain 06/14/23 06/14/23 History norethindrone (contraceptive) 0.35 0.35 mg PO DAILY 06/14/23 06/14/23 History mg tablet Patient hx anesthesia problems: none Family hx anesthesia problems: none Results Review: All pre-operative results and documents have been reviewed as part of the pre-operative evaluation. [facility] Past Medical History Medical History (Updated 06/12/23 @ 16:13 by Sri Keenan APRN) Anxiety Bright red blood per rectum Cholelithiasis Chronic diarrhea Dysphagia Food intolerance in adult GERD (gastroesophageal reflux disease) Gestational HTN Irritable bowel syndrome with diarrhea Migraines Morbid obesity Mother currently breast-feeding Obesity Rheumatoid arthritis Family History Family History Mother Disc degeneration History of cholecystectomy Bipolar 1 disorder Anemia Autoimmune disorder Sibling Bipolar 1 disorder Anemia Father High cholesterol Hypertension Anemia Social History Social History Smoking status: Never smoker Alcohol intake: never Substance use: never Substance use type: does not use Lack of Transportation: No Lack of Food: Never True Current Housing: I Have Housing Concerned About Future Housing: No Difficulty Paying Gas/Electric Bills: No Difficulty Paying for Meds: No Currently Unemployed: No Education: High School Diploma/GED Difficulty w/ Childcare or Family Care: No Living arrangements: with family Spiritual care concerns: No Anes - Eval Final PreProcedure Day of Procedure 07/11/23 10:14 Patient weight: obese Heart: regular rate and rhythm Lungs: clear to auscultation Airway: Mallampati scale class II Neurological: alert and oriented Last oral intake: >/= 8 hours ASA classification: II Emergent: no Anesthetic plan: proceed Anesthesia type and monitoring: general GIVS and standard monitoring Results Review: All pre-operative results and documents have been reviewed as part of the pre-operative evaluation. Informed Consent: The patient's anesthetic plan and its attendant risks and benefits were discussed with the patient/family/POA. Questions were solicited and answers provided to the satisfaction of the patient/family/POA.
--- NOTE | 2023-07-11 10:16 | PM.HPGS ---
History of Present Illness History of Present Illness Consent: Risks, benefits, and alternatives have been discussed and questions answered. Patient agrees to proceed with procedure. Chief complaint: GERD,Dysphagia,IBS-diarrhea Narrative: Fernanda Chong is a 32 year old female Who was referred because of persistent diarrhea. She has tried various different things including hyoscyamine without relief. She has on a few occasions seen red blood her stools. Sometimes this is when she feels the hemorrhoid but not necessarily. She has had no weight loss. She believes that she has some food intolerances. She believes that she may be intolerant to gluten. She also has chronic nausea. Occasionally she has difficulty swallowin Review of Systems Review of Systems: All systems reviewed & are unremarkable except as noted in HPI and below PMFSH Past Medical History Medical History Anxiety Bright red blood per rectum Cholelithiasis Chronic diarrhea Dysphagia Food intolerance in adult GERD (gastroesophageal reflux disease) Gestational HTN Irritable bowel syndrome with diarrhea Migraines Morbid obesity Mother currently breast-feeding Obesity Rheumatoid arthritis Family History Family History Mother Disc degeneration History of cholecystectomy Bipolar 1 disorder Anemia Autoimmune disorder Sibling Bipolar 1 disorder Anemia Father High cholesterol Hypertension Anemia Social History Social History Smoking status: Never smoker Alcohol intake: never Substance use: never Substance use type: does not use Lack of Transportation: No Lack of Food: Never True Current Housing: I Have Housing Concerned About Future Housing: No Difficulty Paying Gas/Electric Bills: No Difficulty Paying for Meds: No Currently Unemployed: No Education: High School Diploma/GED Difficulty w/ Childcare or Family Care: No Living arrangements: with family Spiritual care concerns: No Meds Home Medications and Allergies Home Medications Medication Instructions Recorded Confirmed Type gabapentin 600 mg tablet 600 mg PO HS 08/04/22 06/14/23 History pantoprazole 40 mg tablet,delayed 40 mg PO QAM 08/04/22 06/14/23 History release prednisone 10 mg tablets in a dose 5 - 10 mg PO PRN PRN Inflammation 08/04/22 06/14/23 History pack ibuprofen 400 mg tablet 400 mg PO Q6HR 08/23/22 06/14/23 Rx rifaximin 550 mg tablet (Xifaxan) 550 mg PO TID 14 days #42 tabs 06/12/23 06/14/23 Rx meloxicam 7.5 mg tablet 7.5 mg PO PRN PRN Pain 06/14/23 06/14/23 History norethindrone (contraceptive) 0.35 0.35 mg PO DAILY 06/14/23 06/14/23 History mg tablet Allergies Allergy/AdvReac Type Severity Reaction Status Date / Time Sulfa (Sulfonamide Allergy Hives Verified 07/11/23 09:42 Antibiotics) caffeine AdvReac Redness of Verified 07/11/23 09:42 Skin latex AdvReac Itching Verified 07/11/23 09:42 azothiaprine Allergy Nausea and Uncoded 07/11/23 09:42 Vomiting Vital Signs Vital Signs - 24 hr 07/11/23 09:44 Temperature 35.9 C L Pulse Rate 128 H Respiratory Rate 18 Blood Pressure 138/98 H Pulse Oximetry 98 Oxygen Delivery Room Air Exam Const: General: alert Orientation/consciousness: patient oriented x3 Resp: Auscultation: clear to auscultation bilaterally Cardio: Rhythm: regular rhythm GI: GI Palp: Yes Soft to palpation and No Tenderness to palpation present (GI) Neuro: General: patient oriented x3 Assessment and Plan Assessment and plan (1) Chronic diarrhea: Code(s): K52.9 - Noninfective gastroenteritis and colitis, unspecified Status: Acute Assessment and Plan: Colonoscopy with possible biopsy or polypectomy or cautery or injection of substances. (2) Nausea: Code(s): R11.0 -
--- NOTE | 2023-07-11 11:04 | SUR.OPER ---
EGD: Start 10:51, End 10:55 Colonoscopy: Start 11:00, End 11:10
[2023-07-11] MEDS: SIMETHICONE ORAL SUSPENSION 20 MG/0.3 ML 30 ML BOTTLE 0.6 ML IRRIGATION (11:06)
[2023-07-11 11:13] VITALS: BP 100/60; PULSE 92; RESP 20; O2SAT 98
[2023-07-11 11:23] VITALS: BP 118/66; PULSE 97; RESP 22; O2SAT 100
[2023-07-11 11:33] VITALS: BP 110/64; PULSE 86; RESP 20; O2SAT 100
== END 2023-07-11 11:44 | disposition home or self-care (01) ==
PROVIDERS: PCP Internal Medicine; Visit Provider Internal Medicine Gastroenterology
PROC: 0DJ08ZZ Inspection of Upper Intestinal Tract, Via Natural or Artificial Opening Endoscopic (ICD-10-PCS; CPT 43235; principal; 2023-07-11 11:00)
DX: K52.9 Noninfective gastroenteritis and colitis, unspecified (principal); K63.5 Polyp of colon; K64.8 Other hemorrhoids; I10 Essential (primary) hypertension; K21.9 Gastro-esophageal reflux disease without esophagitis; F41.9 Anxiety disorder, unspecified; K80.20 Calculus of gallbladder without cholecystitis without obstruction; E66.9 Obesity, unspecified; Z68.34 Body mass index [BMI] 34.0-34.9, adult
CPT/HCPCS: 43239; 45385; 45380; 87081; 88305; J7120

== ENCOUNTER 2023-12-30 14:56 | Outpatient (CLI) | payer BC, SELFPAY ==
--- NOTE | ~2023-12-30 | MR_ITS ---
EXAMINATION: MR lumbar spine wo con DATE: 12/30/2023 15:37 INDICATION: Low back pain TECHNIQUE: Magnetic resonance imaging (MRI) of the lumbar spine was performed without intravenous con trast. Sequences included sagittal T2-weighted FSE, sagittal T2-weighted FS FSE, sagittal T1-weighted FSE, and axial T2-weighted FSE. COMPARISON: None FINDINGS: Alignment is normal. Vertebral body heights are normal. Normal marrow signal. Annular fissure and di sc desiccation without significant disc height loss at L4-L5. Remaining discs are normal. The conus m edullaris terminates at L1-L2. There is normal signal in the caudal spinal cord. Paravertebral soft t issues are unremarkable. The following disc levels are specifically discussed: T12-L1: The disc does not extend beyond the endplate margin. There is mild bilateral facet joint oste oarthritis. There is no neural foraminal stenosis. There is no central canal stenosis. L1-L2: The disc does not extend beyond the endplate margin. There is mild bilateral facet joint osteo arthritis. There is no neural foraminal stenosis. There is no central canal stenosis. L2-L3: The disc does not extend beyond the endplate margin. There is mild bilateral facet joint osteo arthritis. There is no neural foraminal stenosis. There is no central canal stenosis. L3-L4: The disc does not extend beyond the endplate margin. There is mild bilateral facet joint osteo arthritis. There is no neural foraminal stenosis. There is no central canal stenosis. L4-L5: Disc is bulging with superimposed annular fissure and small central disc extrusion with disc m aterial extending couple millimeter caudal to the level of the superior endplate of L5. There is mild bilateral facet joint osteoarthritis. There is bilateral neural foraminal stenosis. There is mild ce ntral canal stenosis. L5-S1: The disc does not extend beyond the endplate margin. There is mild right and minimal left face t joint osteoarthritis. There is no neural foraminal stenosis. There is no central canal stenosis. IMPRESSION: 1. Mild lumbar spondylosis with multilevel for annular fissure and small central disc extrusion at L4 -L5 with mild central canal and bilateral neural foraminal stenosis. Reviewed, dictated and finalized at location B. IMPRESSION: 1. Mild lumbar spondylosis with multilevel for annular fissure and small centra l disc extrusion at L4-L5 with mild central canal and bilateral neural foramina l stenosis.
== END 2023-12-30 14:57 ==
PROVIDERS: PCP Internal Medicine; Visit Provider Internal Medicine
DX: M43.06 Spondylolysis, lumbar region (principal); M51.26 Other intervertebral disc displacement, lumbar region; M48.061 Spinal stenosis, lumbar region without neurogenic claudication
CPT/HCPCS: 72148

== ENCOUNTER 2024-03-13 09:07 | Outpatient (CLI) | payer BC, SELFPAY ==
--- NOTE | ~2024-03-13 | US_ITS ---
Limited Abdominal Sonogram: Real-time sonographic imaging of the right upper quadrant was performed. Clinical History: Right upper quadrant pain Findings: The liver appears normal with no evidence of mass lesion or bile duct dilatation. Main por montez vein demonstrates normal direction of flow. The gallbladder is well relatively contracted, with e chogenic gallstones. No definite gallbladder wall thickening. The common bile duct measures 4 mm. Th e visualized pancreas, aorta, and IVC are unremarkable. Impression: Cholelithiasis. Reviewed, dictated and finalized at location M. Impression: Cholelithiasis.
== END 2024-03-13 09:08 | disposition home or self-care (01) ==
LOC: MICIMG 09:08
PROVIDERS: PCP Internal Medicine; Visit Provider Internal Medicine
DX: R10.11 Right upper quadrant pain (principal); K80.20 Calculus of gallbladder without cholecystitis without obstruction
CPT/HCPCS: 76705

== ENCOUNTER 2024-11-13 10:26 | Outpatient (CLI) | payer BC, SELFPAY ==
--- OUTSIDE RECORDS SUMMARY | 2024-11-13 10:33 | XMS_ITS ---
Author Organization [facility] ([id number]) Address [address] [place] [id number] Care Team Providers Care Writer Name Role Phone Parker Aragon Primary Care Provider Aubree Gimenez Unavailable [phone] Dr. Gómez Armstrong Unavailable [phone] Allergies Allergen (clinical drug ingredient) Drug/Non Drug Allergy documented on EMR Reaction Allergy Type Onset Date Status azathioprine azaTHIOprine Unknown Drug Allergy Active hydroxychloroquine Hydroxychloroquine other reaction Drug Allergy Active Substance with sulfonamide structure and antibacterial mechanism of action (substance) Sulfa Antibiotics hives Drug Allergy Active Reason For Referral Reason Evaluate and treat PT for myofascial work Diagnosis 1 Myalgia, unspecified site (M79.10) Referral Organization [facility] Referring Provider First Name Gómez Referring Provider Last Name Nathaniel Referring Provider Speciality Neurology Referred Provider [facility] Referral Priority Routine REASON FOR VISIT 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, 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 Medications Medication SIG (Take, Route, Frequency, Duration) Notes Start Date End Date Status Flonase Allergy Relief 50 MCG/ACT 1 spray in each nostril Nasally Once a day Active Diclofenac Sodium 75 MG 1 tablet as need ed Orally Twice a day Active Benadryl Allergy 25 MG 1 tablet at bedti me as needed Orally Once a day Active Ibuprofen 400 MG 1 tablet with food o r milk as needed Orally Three times a day Active Tylenol 8 Hour 650 MG 2 tablets as neede d Orally every 8 hrs Active Cetirizine HCl 10 MG 1 tablet Orally Onc e a day for 30 days 03/19/2024 Active Azelastine HCl 137 MCG/SPRAY 2 sprays in each nostril Nasally Twice a day for 30 days Active Vitamin D3 1.25 MG (29675 UT) 1 capsule Orally once a week for 60 days Take with food 02/25/2024 Active Nasal Washes N/A as directed intranasally 03/19/2024 Active Diclofenac Not-Takin g Simponi 100 MG/ML as directed Subcutaneous Active DULoxetine HCl 40 MG 1 capsule Orally On ce a day Active Qulipta 60 MG 1 tablet Orally Once a day for 30 days 04/08/2024 Active Pantoprazole Sodium 40 MG 1 tablet Orall y Once a day Active Norethindrone 0.35 MG 1 tablet Orally On ce a day Active Rizatriptan Benzoate 10 MG 1 tablet Orally once, may repeat x1 after 2-4 hours for 30 days As needed for migraine (max 2 tabs/day) 04/08/2024 Active predniSONE 10 MG 4 tablets once a day for 2 days, 3 tablets once a day for 2 days, 2 tablets once a day for 2 days, 1 tablet once a day for 2 days Orally Once a day As needed prn Active Social History Tobacco Use: Social History Observation Description Date Details (start date - stop date) Never Smoker NA - NA Tobacco Control (Standard) Question Answer Notes Tobacco use: Nonsmoker Problems Problem Type SNOMED Code ICD Code Onset Dates Problem Status W/U Status Risk Notes Problem Chronic migraine without aura, non-intractab le (483174280056 100) Chronic migraine without aura, not intractable, without status migrainosus (G43.709) Active confirmed Problem Drug induced headache (500134270927 104) Drug-induced headache, not elsewhere classified, not intractable (G44.40) Active confirmed Problem Muscle pain (47724399) Myalgia, unspecified site (M79.10) Active confirmed Problem Vertigo of central origin (00588418) 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) Active confirmed Problem Insomnia (416476862) Insomnia, unspecified (G47.00) Active confirmed Vital Signs Blood pressure systolic 140 mm Hg 04/08/20 24 Blood pressure diastolic 83 mm Hg 024 Height 62 in 04/08/2024 Weight 203.8 lbs 04/08/2024 BMI 37.27 kg/m2 04/08/2024 Oximetry 96 % 04/08/2024 Encounters Encounter Location Date Provider Diagnosis [facility] [address] [place] [address] 04/08/2024 Gómez Beachyder Chronic migraine without aura, not intractable, without status migrainosus G43.709 ; Vertigo of central origin H81.4 ; Drug-induced headache, not elsewhere classified, not intractable G44.40 ; Myalgia, unspecified site M79.10 and Insomnia, unspecified G47.00 Assessments Encounter Date Diagnosis (ICD Code) Assessment Notes Treatment Notes Treatment Clinical Notes Section Notes 04/08/2024 Chronic migraine without aura, not intractable, without status migrainosus (ICD-10 - G43.709) -Abortive treatment plan: Rizatriptan 10 mg prn. Patient counseled r.e. potential side effects.-Preventi ve treatment plan: Start Qulipta 60 mg daily. Patient counseled r.e. potential side effects.-Educated the patient on migraine lifestyle recommendations. I recommended the following measures: avoid known triggers of migraine, drink > 100 fluid ounces of non-caffeinated fluid daily, limit caffeine to 2 servings/day, sleep 7-8 hours/night and address any sleep concerns with us and report symptoms of snoring or fatigue; healthy management of stress; avoid treating headaches more than 2 days/week with abortive medication unless approved in treatment plan; can take Riboflavin 400 mg and Magnesium 500 mg daily as supplements; keep scheduled follow-up appointments She has chronic migraine and vestibular migraine, compounded by high stress, chronic insomnia, MOH, and cervical/para scapular myofascial pain 04/08/2024 Vertigo of central origin (ICD-10 - H81.4) Start Qulipta 60 mg daily. She has chronic migraine and vestibular migraine, compounded by high stress, chronic insomnia, MOH, and cervical/para scapular myofascial pain 04/08/2024 Drug-induced headache, not elsewhere classified, not intractable (ICD-10 - G44.40) Educated patient regarding medication overuse headaches. Advised to avoid taking NSAIDs or acetaminophen > 15 days/month, triptans or DHE > 10 days/month, butalbital > 10 days/month to avoid rebound headaches. She has chronic migraine and vestibular migraine, compounded by high stress, chronic insomnia, MOH, and cervical/para scapular myofascial pain 04/08/2024 Myalgia, unspecified site (ICD-10 - M79.10) PT for myofascial work ([facility] [place]). She has chronic migraine and vestibular migraine, compounded by high stress, chronic insomnia, MOH, and cervical/para scapular myofascial pain 04/08/2024 Insomnia, unspecified (ICD-10 - G47.00) Discuss with PCP going back on qHS gabapentin which she was on previously and it helped. Discuss with PCP switching from duloxetine to SSRI. She has chronic migraine and vestibular migraine, compounded by high stress, chronic insomnia, MOH, and cervical/para scapular myofascial pain Plan Of Treatment Medication Medication Name Sig Start Date Stop Date Notes Qulipta 60 MG 1 tablet Orally Once a day for 30 days 04/08/2024 Rizatriptan Benzoate 10 MG 1 tablet Oral ly once, may repeat x1 after 2-4 hours for 30 days 04/08/2024 Treatment Notes Assessment Notes Chronic migraine without aur a, not intractable, without status migrainosus -Abortive treatment plan: Rizatriptan 10 mg prn. Patient counseled r.e. potential side effects.-Preventive treatment plan: Start Qulipta 60 mg daily. Patient counseled r.e. potential side effects.-Educated the patient on migraine lifestyle recommendations. I recommended the following measures: avoid known triggers of migraine, drink > 100 fluid ounces of non-caffeinated fluid daily, limit caffeine to 2 servings/day, sleep 7-8 hours/night and address any sleep concerns with us and report symptoms of snoring or fatigue; healthy management of stress; avoid treating headaches more than 2 days/week with abortive medication unless approved in treatment plan; can take Riboflavin 400 mg and Magnesium 500 mg daily as supplements; keep scheduled follow-up appointments Vertigo of central origin Start Qulipta 60 mg daily. Drug-induced headache, not e lsewhere classified, not intractable Educated patient regarding medication overuse headaches. Advised to avoid taking NSAIDs or acetaminophen > 15 days/month, triptans or DHE > 10 days/month, butalbital > 10 days/month to avoid rebound headaches. Myalgia, unspecified site PT for myofasc ial work ([facility] [place]). Insomnia, unspecified Discuss with PCP zohra hightower back on qHS gabapentin which she was on previously and it helped. Discuss with PCP switching from duloxetine to SSRI. 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 She has several complaints. She reports that she has systemic autoimmune disease, reporting a history of RA, treated with Symponi infusions and NSAIDs. She has a history of fibromyalgia and lumbar DDD. She has a history of depression/anxiety. She also has a history of migraine. Headache History: -Headache Onset: Adolescence-Headache Description #1: Prodrome: Sometimes gets nausea first. Pain phase: Starts in the neck usually, but sometimes starts in frontal region, usually right unilateral but sometimes bilaterally, restricts activity, pain is pressure and sometimes throbbing, usually reaches peak intensity gradually, associated with photophobia/phonophobia and nausea, and more recently dizziness endorses as a sense of motion consistent with vertigo of long duration (she can also have dizziness without headache), sometimes cognitive slowing/brain fog, some episodes has visual aura of seeing spots that can obscure vision for up to 15 minutes, can last > 24 hours. -Headache Description #2: Ice pick headaches, usually left side periorbital -Headache Triggers: Menstrual cycle, barometric pressure changes or altitude changes, seasonally worse in Spring and Fall, stress -Headache Frequency: The patient is currently experiencing 25 Headache days/month and 7-14 Migraine days/month. Associated Factors:-Stress/Mood: Patient endorses high levels of stress, also treated for anxiety/depression with duloxetine-Sleep: Patient reports chronic sleep difficulty with insomnia, difficulty getting to sleep and also difficulty maintaining sleep. She has snoring, non-restorative sleep, and chronic fatigue. -Sinus/Allergy: Patient has seasonal allergies and is on treatment for this (steroid nasal spray and Allergra)-Cervical spine: Patient endorses m yofascial pain in neck and parascapular regions. -TMJ pain or jaw clenching: Patient denies TMJ pain or bruxism. -Hormones: Menstruates irregularly, this consistently provokes migraines. -Medication Overuse: Present (takes Tylenol frequently, up to 3-4 days/week -Fluid intake: Adequate ~100 Current/Prior Migraine Treatment:-Current abortive therapy: OTC analgesics-Previous failed abortive therapy: None-Current preventive therapy: Duloxetine 40 mg (on for mood x 3 months, has not helped her headaches)-Previous failed preventive therapy: None Other symptoms: Intermittent paresthesias, primarily in left hand with activities, but also intermittent fleeting paresthesias in other extremities. Intermittent low back pain with radiation into right leg.? * ROS: C ONSTITUTIONAL: weight gain y es,maybe. f atigue y es. ? E NT: sinus pain yes. R ESPIRATORY: Positive for P atient denies shortness of breath or wheezing, Patient denies shortness of breath or wheezing. O PHTHALMOLOGY: sensitivity to light y es. d iminished vision y es.? E NDOCRINOLOGY: fatigue y es. s leep disturbance yes. ? C ARDIOLOGY: dizziness y es. G ASTROENTEROLOGY: nausea y es. U ROLOGY: Positive for P atient denies urinary incontinence or urinary dysfunction, Patient denies urinary incontinence or urinary dysfunction. D ERMATOLOGY: Positive for P atient denies rash or hives, Patient denies rash or hives. N EUROLOGY: Positive for R tejinderd and except as mentioned above in the HPI is negative, Reviewed and except as mentioned above in the HPI is negative. H EMATOLOGY/LYMPH: Positive for P atient denies history of excessive bruising or bleeding diasthesis, Patient denies history of excessive bruising or bleeding diasthesis. ? M USCULOSKELETAL: joint stiffness y es. j oint pain y es. ? P SYCHOLOGY: Positive for R maurizio and except as discussed above in the HPI is otherwise negative, Reviewed and except as discussed above in the HPI is otherwise negative.? * Medical History: * Surgical History: N o Surgical History documented. * Hospitalization/Major Diagno stic Procedure: N o Hospitalization History. * Family History: F ather: alive, Yes. M other: alive, Yes. C hildren: Yes. 1 brother(s) , 1 sister(s) - healthy. 1 daughter(s) - healthy. . mom- autoimmune disorders father- high cholesterol, HBP sister- autoimmune disease, degeneratice disc disease, BPD. * Social History: M arital Status What is your marital status? m arried A lcohol Screening Do you ever drink alcoholic beverages? Y es Number of drinks per occasion: 2 Frequency? E very 6 months S moking Have you ever smoked tobacco: n ever smoked Additional Findings: Tobacco Non-User A ggressive non-smoker Are you a : n ever smoker R ecreational drug use Have you ever used recreational drugs? N o D etails on consumption of certain products? Do you regularly consume products with aspartame; Equal or NutraSweet? N o Do you regularly consume products with artificial coloring??Yes Have you ever noticed worsening of your rash with these food items? Y es E xercise What kind(s) of exercise do you perform regularly? c ardio How often do you perform this exercise? w eekly A re any of the following personal care products containing fragrance, dye or preservatives used regularly? Shampoo: Y es Conditioner: Y es Soap: Y es Laundry Detergent: N o Fabric Softener: N o Deodorant: Y es Perfume, cologne, after shave: Y es Air freshners or other scented products: N o O ccupation Are you currenly employed? N o Have you had any job with high exposure to fumes, chemicals, dust or other noxious substances? N o Are you currently a student? N o E nvironmental History Living environment: p rivate home Where is the home located? c [place] Age of home: 3 0 How long have you lived there? 2 -4 years How many people live in the home? 3 H ome description Basement: Y es Any water damage in basement? N o Smokers in the home? N o Smokers outside the home? N o Air Conditioning? Y es Central Air? Y es Forced air heating? Y es Gas or electric? g as Fireplace? Y es Used how often? o ther Wood burning stove? N o Do you vacuum the home? Y es Air purification systems? Y es Is it a HEPA (high-efficiency particulate air filter)? Y es Ionizer on air purification system? N o Pillow and mattress dust-proof encasings? N o Do you use a humidifier? Y es Whole house or room? r oom humidifier Does it have a humidistat? N o Is it used year-round, seasonal, or as needed? a s needed Is the humidifier cleaned regularly? Y es Do you own any pets? Y es What kind(s)? (click all that apply) d og Where do your pets sleep? o ther room in home Fabric softeners used? N o Plants in the home? N o Is there carpeting in your bedroom? Y es Age of carpet? 3 0 Do you have vira-jn-krjr carpeting? Y es What is the age of your carpeting? 3 0 What is the age of your mattress (years)? 1 Do you sleep with quilts or blankets or a duvet? Y es How many dogs? 2 T obacco Control (Standard) Tobacco use: N onsmoker * Medications: T akingAzelastine HCl 137 MCG/SPRAY Solution 2 sprays in each nostril Nasally Twice a day Flonase Allergy Relief 50 MCG/ACT Suspension 1 spray in each nostril Nasally Once a day Tylenol 8 Hour 650 MG Tablet Extended Release 2 tablets as needed Orally every 8 hrs Ibuprofen 400 MG Tablet 1 tablet with food or milk as needed Orally Three times a day Benadryl Allergy 25 MG Tablet 1 tablet at bedtime as needed Orally Once a day Diclofenac Sodium 75 MG Tablet Delayed Release 1 tablet as needed Orally Twice a day predniSONE 10 MG Tablet 4 tablets once a day for 2 days, 3 tablets once a day for 2 days, 2 tablets once a day for 2 days, 1 tablet once a day for 2 days Orally Once a day As needed, Notes to Pharmacist: prnNorethindrone 0.35 MG Tablet 1 tablet Orally Once a day Pantoprazole Sodium 40 MG Tablet Delayed Release 1 tablet Orally Once a day DULoxetine HCl 40 MG Capsule Delayed Release Sprinkle 1 capsule Orally Once a day Simponi 100 MG/ML Solution Auto-injector as directed Subcutaneous Vitamin D3 1.25 MG (60514 UT) Capsule 1 capsule Orally once a week Take with foodCetirizine HCl 10 MG Tablet 1 tablet Orally Once a day Nasal Washes N/A 1 quart of sterilized tap water or distilled water, 1 tsp NaCl, 1 pinch of baking soda as directed intranasally Taking Azelastine HCl 137 MCG/SPRAY Solution 2 sprays in each nostril Nasally Twice a day Taking Flonase Allergy Relief 50 MCG/ACT Suspension 1 spray in each nostril Nasally Once a day Taking Tylenol 8 Hour 650 MG Tablet Extended Release 2 tablets as needed Orally every 8 hrs Taking Ibuprofen 400 MG Tablet 1 tablet with food or milk as needed Orally Three times a day Taking Benadryl Allergy 25 MG Tablet 1 tablet at bedtime as needed Orally Once a day Taking Diclofenac Sodium 75 MG Tablet Delayed Release 1 tablet as needed Orally Twice a day Taking predniSONE 10 MG Tablet 4 tablets once a day for 2 days, 3 tablets once a day for 2 days, 2 tablets once a day for 2 days, 1 tablet once a day for 2 days Orally Once a day As needed, Notes to Pharmacist: prnTaking Norethindrone 0.35 MG Tablet 1 tablet Orally Once a day Taking Pantoprazole Sodium 40 MG Tablet Delayed Release 1 tablet Orally Once a day Taking DULoxetine HCl 40 MG Capsule Delayed Release Sprinkle 1 capsule Orally Once a day Taking Simponi 100 MG/ML Solution Auto-injector as directed Subcutaneous Taking Vitamin D3 1.25 MG (15671 UT) Capsule 1 capsule Orally once a week Take with foodTaking Cetirizine HCl 10 MG Tablet 1 tablet Orally Once a day Taking Nasal Washes N/A 1 quart of sterilized tap water or distilled water, 1 tsp NaCl, 1 pinch of baking soda as directed intranasally Not-Taking/PRNDiclofenac Medication List reviewed and reconciled with the patientNot-Taking/PRN Diclofenac Medication List reviewed and reconciled with the patient * Allergies: S ulfa Antibiotics: hivesHydroxychloroquine: other reactionazaTHIOprineno[Allergies Verified] Objective: * Vitals: B P:140/83mm Hg, HR:97/min, Pulse Oximetry:96%, Ht: 62 in, Wt: 203.8 lbs, BMI:37.27Index. * Examination: G eneral examination: General appearance: Fuad hernandez, well-developed, no distress.? HEENT: N o papilledema. No tenderness to palpation over bilateral greater occipital or supraorbital nerves. Neck, thyroid : S upple. Heart: R RR, S1-S2, no murmurs, no rubs, no gallops. Lungs: C lear to auscultation and percussion in all lung best. Neurologic exam: A lert and oriented x 4. Fluent speech. Intact recall, fund of knowledge. Appropriate affect. PERRL. EOMI without nystagmus. No visual field cut. Facial sensation intact to light touch and pinprick in bilateral V1/V2/V3. Facial movements normal and symmetric. Hearing intact to finger rub bilaterally. Palate symmetrically upgoing. Tongue midline. Motor 5/5 strength in all extremities. Reflexes 2+/2 and symmetric in all extremities, except 3+/2 bilateral patella, but no Schilling's or clonus and bilateral flexor plantar responses. Sensory exam intact to light touch, pinprick, vibration, and proprioception in all extremities; negative Tinel's B wrists. C erebellar testing no ataxia or dysmetria. Gait normal, negative Romberg, intact tandem. Back: L eft parascapular trigger points. Extremities: N o peripheral e janeth. ? Assessment: * Assessment: 1. C hronic migraine without aura, not intractable, without status migrainosus - G43.709 (Primary) 2 . V ertigo of central origin - H81.4 S pecify :vestibular migraine 3 . D rug-induced headache, not elsewhere classified, not intractable - G44.40 4. M yalgia, unspecified site - M79.10 S pecify :myofascial pain 5 . I nsomnia, unspecified - G47.00 She has chronic migraine and vestibular migraine, compounded by high stress, chronic insomnia, MOH, and cervical/parascapular myofascial pain Plan: * Treatment: 2. V ertigo of central origin Notes:Start Qulipta 60 mg daily. 3. D rug-induced headache, not elsewhere classified, not intractable Notes: Educated patient regarding medication overuse headaches. Advised to avoid taking NSAIDs or acetaminophen > 15 days/month, triptans or DHE > 10 days/month, butalbital > 10 days/month to avoid rebound headaches. 4. M yalgia, unspecified site Notes:PT for myofascial work ([facility]). Referral To:[facility] Reason:Evaluate and treat PT for myofascial work 5. I nsomnia, unspecified Notes:Discuss with PCP going back on qHS gabapentin which she was on previously and it helped. Discuss with PCP switching from duloxetine to SSRI. * Procedure Codes: G 8427 DOC MEDS VERIFIED W/PT OR RE * Preventive Medicine: Counseling: C are goal follow up plan BMI management provided Y es Above Normal BMI Follow-up D ietary management education, guidance, and counseling B P Management: FIRST HYPERTENSIVE BP READING FOLLOW-UP PLAN: F ollow-up 1 month REFERRAL TO ALTERNATIVE / PRIMARY CARE PROVIDER: Jenna bryan to general physician T his was a 60 minute visit with time spent in reviewing prior records/notes, evaluation and management, counseling, and documentation. This was a 60 minute visit with time spent in reviewing prior records/notes, evaluation and management, counseling, and documentation. * Follow Up: 1 Month with VIVIAN Simmons (Reason: Evaluation and Management) * Billing Information: * Visit Code: 03203 Office Visit, New Pt., Level 4. Modifiers: 25 * Procedure Codes: G8427 DOC MEDS VERIFIED W/PT OR RE. * Sign off status: Completed true * Provider: Daniella Armstrong MD Date: 1 Generated for Buster barrera/Loree/Macieitting on: 0 11/13/2024 10:32 AM CDT History and Physical Notes * HPI (History of Present Illness) Category Sub-Category Detail Notes Category Not es *Introduction I had the pleasure o f seeing Fernanda Chong, who presented for evaluation of headaches and dizziness. She has several complaints. She reports that she has systemic autoimmune disease, reporting a history of RA, treated with Symponi infusions and NSAIDs. She has a history of fibromyalgia and lumbar DDD. She has a history of depression/anxiety. She also has a history of migraine. Headache History: -Headache Onset: Adolescence-Headache Description #1: Prodrome: Sometimes gets nausea first. Pain phase: Starts in the neck usually, but sometimes starts in frontal region, usually right unilateral but sometimes bilaterally, restricts activity, pain is pressure and sometimes throbbing, usually reaches peak intensity gradually, associated with photophobia/phonophobia and nausea, and more recently dizziness endorses as a sense of motion consistent with vertigo of long duration (she can also have dizziness without headache), sometimes cognitive slowing/brain fog, some episodes has visual aura of seeing spots that can obscure vision for up to 15 minutes, can last > 24 hours. -Headache Description #2: Ice pick headaches, usually left side periorbital -Headache Triggers: Menstrual cycle, barometric pressure changes or altitude changes, seasonally worse in Spring and Fall, stress -Headache Frequency: The patient is currently experiencing 25 Headache days/month and 7-14 Migraine days/month. Associated Factors:-Stress/Mood: Patient endorses high levels of stress, also treated for anxiety/depression with duloxetine-Sleep: Patient reports chronic sleep difficulty with insomnia, difficulty getting to sleep and also difficulty maintaining sleep. She has snoring, non-restorative sleep, and chronic fatigue. -Sinus/Allergy: Patient has seasonal allergies and is on treatment for this (steroid nasal spray and Allergra)-Cervical spine: Patient endorses myofascial pain in neck and parascapular regions. -TMJ pain or jaw clenching: Patient denies TMJ pain or bruxism. -Hormones: Menstruates irregularly, this consistently provokes migraines. -Medication Overuse: Present (takes Tylenol frequently, up to 3-4 days/week -Fluid intake: Adequate ~100 Current/Prior Migraine Treatment:-Current abortive therapy: OTC analgesics-Previous failed abortive therapy: None-Current preventive therapy: Duloxetine 40 mg (on for mood x 3 months, has not helped her headaches)-Previous failed preventive therapy: None Other symptoms: Intermittent paresthesias, primarily in left hand with activities, but also intermittent fleeting paresthesias in other extremities. Intermittent low back pain with radiation into right leg Examination Category Sub-Category Detail Notes Category Not es General examination HEENT: No papillede ma. No tenderness to palpation over bilateral greater occipital or supraorbital nerves Neck, thyroid : Supple Heart: RRR, S1-S2, no murmu rs, no rubs, no gallops Lungs: Clear to auscultatio n and percussion in all lung best Extremities: No peripheral edema General appearance: Pleasant, well-devel oped, no distress Neurologic exam: Alert and oriented x 4. Fluent speech. Intact recall, fund of knowledge. Appropriate affect. PERRL. EOMI without nystagmus. No visual field cut. Facial sensation intact to light touch and pinprick in bilateral V1/V2/V3. Facial movements normal and symmetric. Hearing intact to finger rub bilaterally. Palate symmetrically upgoing. Tongue midline. Motor 5/5 strength in all extremities. Reflexes 2+/2 and symmetric in all extremities, except 3+/2 bilateral patella, but no Schilling's or clonus and bilateral flexor plantar responses. Sensory exam intact to light touch, pinprick, vibration, and proprioception in all extremities; negative Tinel's B wrists. Cerebellar testing no ataxia or dysmetria. Gait normal, negative Romberg, intact tandem Back: Left parascapular tr igger points Consultation Request Notes Referral Date Referring Provider Referred Provider Not es 04/08/2024 Gómez Armstrong [facility] PT, Maurilio Sanabria uate and treat PT for myofascial work
--- OUTSIDE RECORDS SUMMARY | 2024-11-13 10:33 | XMS_ITS | Patient Health Record ---
Author Organization [facility] [email or web address] [place] ([address]) Address [address] [place] [address] Care Team Providers Care Egg Worker Name Role Phone Parker Aragon Primary Care Provider UnavailAubree Fontana Unavailable [phone] Dr. Gómez Armstrong Unavailable [phone] Romelia Simmons Unavailable [phone] Allergies Allergen (clinical drug ingredient) Drug/Non Drug Allergy documented on EMR Reaction Allergy Type Onset Date Status azathioprine azaTHIOprine Unknown Drug Allergy Active hydroxychloroquine Hydroxychloroquine other reaction Drug Allergy Active Substance with sulfonamide structure and antibacterial mechanism of action (substance) Sulfa Antibiotics hives Drug Allergy Active Results Component Value Reference Range Notes -Immunoglobulins A/G/M, Qn, Ser Reviewed date:02/19/2024 02:46:45 PM Interpretation:Normal Performing Lab:[facility] [place], [address] [place] [id number], Phone - [phone], Director - PhDRicchiuti Notes/Report: Immunoglobulin G, Qn, Serum 9186 146-3591 mg/d L Immunoglobulin A, Qn, Serum 159 87-352 mg/dL Immunoglobulin M, Qn, Serum 139 26-217 mg/dL -Vitamin D, 25-Hydroxy Reviewed date:02/25/2024 08:49:15 AM Interpretation:Abnormal Performing Lab:[facility] [place], [address], [place] [id number], Phone - [phone], Director - PhDRicchiuti Notes/Report: Vitamin D, 25-Hydroxy 12.4 30.0-100.0 ng/mL Vitamin D deficiency has been defined by the [place] [employer] and an Endocrine Society practice guideline as a level of serum 25-OH vitamin D less than 20 ng/mL (1,2). The Endocrine Society went on to further define vitamin D insufficiency as a level between 21 and 29 ng/mL (2). 1. IOM ([place] [employer]). 2010. Dietary reference intakes for calcium and D. [place]: The National Academies Press. 2. Francie MF, Luis Eduardo DANIELS, Ely ARGUELLO, et al. Evaluation, treatment, and prevention of vitamin D deficiency: an Endocrine Society clinical practice guideline. JCEM. 2010; 96(7):1911-30. -Haemophilus influenzae B Ig G Reviewed date:02/22/2024 01:34:08 PM Interpretation:Normal Performing Lab:[facility] [id number], Phone - [phone], Director - Sarina Notes/Report: Haemophilus influenzae B IgG 0.86 NOTE: An anti-Hib level of 0.15 ug/mL is generally accepted as the minimum level for protection. Optimal protection post-vaccination requires a level greater than 1.00 ug/mL. -Tetanus/Diphtheria Ab Reviewed date:02/21/2024 10:50:27 AM Interpretation:Normal Performing Lab:[facility] [id number], Phone - [phone], Director - Sarina Notes/Report: Tetanus Antitoxoid IgG Ab 1.53 <0.10 IU/mL Interpretation: Non-Protective <0.10 Protective >=0.10 Results for this test are for research purposes only by the assay's boom crane operator. The performance characteristics of this product have not been established. Results should not be used as a diagnostic procedure without confirmation of the diagnosis by another medically established diagnostic product or procedure. Diphtheria Antitoxoid Ab 0.43 <0.10 IU/mL Interpretation: Non-Protective <0.10 Protective >=0.10 . For research use only. -Respiratory Allergens w/Tot al IgE Area 8 Reviewed date:02/25/2024 12:16:55 PM Interpretation:Abnormal [facility] [address] [id number], Phone - [phone], Director - Sarina Notes/Report: Class Description Levels of Specific IgE Class Description of Class ----- < 0.10 0 Negative 0.10 - 0.31 0/I Equivocal/Low 0.32 - 0.55 I Low 0.56 - 1.40 II Moderate 1.41 - 3.90 III High 3.91 - 19.00 IV Very High 19.01 - 100.00 V Very High >100.00 Very High Immunoglobulin E, Total <2 6-495 IU/mL T021-VaD D pteronyssinus <0.10 Class 0 kU/L Z481-ImD D farinae <0.10 Class 0 kU/L L691-ZaP Cat Dander <0.10 Class 0 kU/L X682-JzG Dog Dander <0.10 Class 0 kU/L I069-QaK Mouse Urine <0.10 Class 0 kU/L S034-DwI [place] Grass <0.10 Class 0 kU/L M426-LaH Michele Grass <0.10 Class 0 kU/L G979-UxT Cockroach, Bengali <0.10 Class 0 kU/L X545-XkZ Penicillium chrysogen <0.10 Class 0 kU /L P190-ZsX Cladosporium herbarum <0.10 Class 0 kU /L F881-YvX Aspergillus fumigatus <0.10 Class 0 kU /L Z689-DnF Alternaria alternata <0.10 Class 0 kU/ L U318-IyM Maple/Patrick <0.10 Class 0 kU/L Q362-HgG [place], Mountain <0.10 Class 0 kU/L K593-OdE [place], White <0.10 Class 0 kU/L N770-YnW Elm, [place]ican <0.10 Class 0 kU/L E768-LeF Maple Dike [place] <0.10 Class 0 kU/L W463-UsV [place] <0.10 Class 0 kU/L A055-LuE Sheldon, White <0.10 Class 0 kU/L M964-GzM [place] <0.10 Class 0 kU/L H066-TyT Pecan, Gilchrist <0.10 Class 0 kU/L I989-GnL [place] <0.10 Class 0 kU/L P269-PxN Ragweed, Short <0.10 Class 0 kU/L J966-FsO Thistle, Serbian <0.10 Class 0 kU/L G870-DaV Pigweed, Common <0.10 Class 0 kU/L U150-BoV Rough Mars[place]er <0.10 Class 0 kU/L -Pneumococcal Ab (23 Serotyp e) Reviewed date:02/25/2024 08:49:24 AM Interpretation:Abnormal Performing Lab:[facility], [address], [address], [place], [place] [id number], Phone - [phone], Director - [facility]/Report: Pneumo Ab Type 1* 2.1 >1.3 ug/mL Pneumo Ab Type 3* 0.4 >1.3 ug/mL Pneumo Ab Type 4* <0.1 >1.3 ug/mL Pneumo Ab Type 8* 1.8 >1.3 ug/mL Pneumo Ab Type 9 (9N)* 0.2 >1.3 ug/mL Pneumo Ab Type 12 (12F)* <0.1 >1.3 ug/mL Pneumo Ab Type 14* <0.1 >1.3 ug/mL Pneumo Ab Type 17 (17F)* 2.5 >1.3 ug/mL Pneumo Ab Type 19 (19F)* 0.7 >1.3 ug/mL Pneumo Ab Type 2* <0.2 >1.3 ug/mL Pneumo Ab Type 20* 0.8 >1.3 ug/mL Pneumo Ab Type 22 (22F)* 1.1 >1.3 ug/mL Pneumo Ab Type 23 (23F)* 1.5 >1.3 ug/mL Pneumo Ab Type 26 (6B)* 0.5 >1.3 ug/mL Pneumo Ab Type 34 (10A)* <0.1 >1.3 ug/mL Pneumo Ab Type 43 (11A)* 0.5 >1.3 ug/mL Pneumo Ab Type 5* <0.1 >1.3 ug/mL Pneumo Ab Type 51 (7F)* <0.1 >1.3 ug/mL Pneumo Ab Type 54 (15B)* 3.1 >1.3 ug/mL Pneumo Ab Type 56 (18C)* 3.7 >1.3 ug/mL Pneumo Ab Type 57 (19A)* 2.9 >1.3 ug/mL Pneumo Ab Type 68 (9V)* 0.5 >1.3 ug/mL Pneumo Ab Type 70 (33F)* 1.6 >1.3 ug/mL *This test was developed and its performance characteristics determined by [facility]. It has not been cleared or approved by the U.S. Food and Drug Administration. FLAG Interpretation: A = Abnormal, H = High, L = Low Reason For Referral Reason Evaluate and treat PT for myofascial work Diagnosis 1 Myalgia, unspecified site (M79.10) Referral Organization [facility] Referring Provider First Name Gómez Referring Provider Last Name Nathaniel Referring Provider Speciality Neurology Referred Provider [facility], [place] Referral Priority Routine Medications Medication SIG (Take, Route, Frequency, Duration) Notes Start Date End Date Status Ibuprofen 400 MG 1 tablet with food o r milk as needed Orally Three times a day Active Rizatriptan Benzoate 10 MG 1 tablet Orally once, may repeat x1 after 2-4 hours for 30 days As needed for migraine (max 2 tabs/day) 04/08/2024 Active Nasal Washes N/A as directed intranasally 03/19/2024 Active Diclofenac Sodium 75 MG 1 tablet as need ed Orally Twice a day Active Propranolol HCl 20 MG 1 tablet Orally at bedtime for 30 days 04/14/2024 Active Benadryl Allergy 25 MG 1 tablet at bedti me as needed Orally Once a day Active Qulipta 60 MG 1 tablet Orally Once a day for 30 days 04/08/2024 Active Norethindrone 0.35 MG 1 tablet Orally On ce a day Active predniSONE 10 MG 4 tablets once a day for 2 days, 3 tablets once a day for 2 days, 2 tablets once a day for 2 days, 1 tablet once a day for 2 days Orally Once a day As needed prn Active Diclofenac Not-Takin g DULoxetine HCl 40 MG 1 capsule Orally On ce a day Active Pantoprazole Sodium 40 MG 1 tablet Orall y Once a day Active Azelastine HCl 137 MCG/SPRAY 2 sprays in each nostril Nasally Twice a day for 30 days Active Vitamin D3 1.25 MG (82889 UT) 1 capsule Orally once a week for 60 days Take with food 02/25/2024 Active Simponi 100 MG/ML as directed Subcutaneous Active Tylenol 8 Hour 650 MG 2 tablets as neede d Orally every 8 hrs Active Flonase Allergy Relief 50 MCG/ACT 1 spray in each nostril Nasally Once a day Active Cetirizine HCl 10 MG 1 tablet Orally Onc e a day for 30 days 03/19/2024 Active Social History Tobacco Use: Social History Observation Description Date Details (start date - stop date) Never Smoker NA - NA Tobacco Control (Standard) Question Answer Notes Tobacco use: Nonsmoker Problems Problem Type SNOMED Code ICD Code Onset Dates Problem Status W/U Status Risk Notes Problem Vitamin D deficiency (75803602) Vitamin D deficiency, unspecified (E55.9) Active confirmed Problem Chronic migraine without aura, non-refractory (disorder) (272801053820833) Migraine without aura, not intractable, without status migrainosus (G43.009) Active confirmed Problem Migraine with aura (0738471) Migraine with aura, not intractable, without status migrainosus (G43.109) Active confirmed Problem Chronic migraine without aura, non-intractable (014731585135548) Chronic migraine without aura, not intractable, without status migrainosus (G43.709) Active confirmed Problem Drug induced headache (236229404963102) Drug-induced headache, not elsewhere classified, not intractable (G44.40) Active confirmed Problem Insomnia (498836488) Insomnia, unspecified (G47.00) Active confirmed Problem Chronic allergic conjunctivitis (32382821) Other chronic allergic conjunctivitis (H10.45) Active confirmed Problem Allergic rhinitis caused by pollen (disorder) (56569246) Allergic rhinitis due to pollen (J30.1) Active confirmed Problem Allergic rhinitis (59870691) Other allergic rhinitis (J30.89) Active confirmed Problem Chronic sinusitis (37161621) Chronic sinusitis, unspecified (J32.9) Active confirmed Problem Latex allergy status (Z91.040) Active confirmed Problem Muscle pain (62695641) Myalgia, unspecified site (M79.10) Active confirmed Problem Vertigo of central origin (15490693) 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) Active confirmed Vital Signs Respiratory Rate 16 /min 02/06/2024 Oximetry 96 % 04/08/2024 Blood pressure diastolic 83 mm Hg 04/08/2024 Height 62 in 04/08/2024 Blood pressure systolic 140 mm Hg 04/08/2024 Weight 203.8 lbs 04/08/2024 BMI 37.27 kg/m2 04/08/2024 Encounters Encounter Location Date Provider Diagnosis [facility] [address] [place], [place] [address] 02/06/2024 Aubree Ram Allergic rhinitis du e to pollen J30.1 ; Other allergic rhinitis J30.89 ; Other adverse food reactions, not elsewhere classified, initial encounter T78.1XXA ; Other chronic allergic conjunctivitis H10.45 ; Chronic sinusitis, unspecified J32.9 ; Vitamin D deficiency, unspecified E55.9 ; Rash and other nonspecific skin eruption R21 ; Adverse effect of sulfonamides, initial encounter T37.0X5A and Elevated blood-pressure reading, without diagnosis of hypertension R03.0 [facility] [address] [place] [phone] 03/19/2024 Aubree Ram Allergic rhinitis du e to pollen J30.1 ; Other allergic rhinitis J30.89 ; Other chronic allergic conjunctivitis H10.45 ; Other adverse food reactions, not elsewhere classified, initial encounter T78.1XXA ; Chronic sinusitis, unspecified J32.9 ; Vitamin D deficiency, unspecified E55.9 ; Rash and other nonspecific skin eruption R21 ; Flushing R23.2 ; Latex allergy status Z91.040 ; Migraine with aura, not intractable, without status migrainosus G43.109 ; Adverse effect of sulfonamides, initial encounter T37.0X5A and Elevated blood-pressure reading, without diagnosis of hypertension R03.0 [facility] [address] [place] [phone] 04/08/2024 Gómez Armstrong Chronic migraine without aura, not intractable, without status migrainosus G43.709 ; Vertigo of central origin H81.4 ; Drug-induced headache, not elsewhere classified, not intractable G44.40 ; Myalgia, unspecified site M79.10 and Insomnia, unspecified G47.00 [facility] [address] [place] [address] 02/20/2024 Aubree Ram Vitamin D deficiency , unspecified E55.9 [facility] [place] [address] [place] [address] 04/09/2024 Gómez Armstrong Assessments Encounter Date Diagnosis (ICD Code) Assessment Notes Treatment Notes Treatment Clinical Notes Section Notes 02/06/2024 Allergic rhinitis due to pollen (ICD-10 - J30.1) Given the history and symptoms, skin testing was performed to common aeroallergens to determine atopic status. Fernandaclearly suffers from atopic disease based upon our skin testing and clinical history. Accordingly, we have introduced a new, aggressive medication regimen, discussed nasal washes and allergy-specific avoidance measures. We also discussed adjunctive therapies including subcutaneous, specific allergen immunotherapy as relates to the treatment and prevention of atopic disease. She is currently considering the risks, benefits and alternatives to this care. Risks: bleeding, infection, allergic reaction, anaphylaxis; Benefits: reduced need for medications, improved symptoms, disease modification. Alternatives: watch/wait, change medication regimen, improve allergy avoidance measures. - Recommend avoiding Benadryl due to crossing of BBB. - One histamine blunted today, ImmunoCaps sent off for further evaluation of atopic disease. - Given ongoing PND causing cough, will trial Azelastine. Order sent out. - Follow-up in 1 month for interval evaluation and management 02/06/2024 Other allergic rhinitis (ICD-10 - J30.89) Follow allergen avoidance, meds and consider SCIT as an adjunctive treatment to current regimen 02/20/2024 Vitamin D deficiency, unspecified (ICD-10 - E55.9) 03/19/2024 Allergic rhinitis due to pollen (ICD-10 - J30.1) Fernanda clearly suffers from atopic disease based upon our skin testing and clinical history. Accordingly, we have introduced a new, aggressive medication regimen, discussed nasal washes and allergy-specific avoidance measures. We also discussed adjunctive therapies including subcutaneous, specific allergen immunotherapy as relates to the treatment and prevention of atopic disease. She is currently considering the risks, benefits and alternatives to this care. Risks: bleeding, infection, allergic reaction, anaphylaxis; Benefits: reduced need for medications, improved symptoms, disease modification. Alternatives: watch/wait, change medication regimen, improve allergy avoidance measures. - Today, complaining of nasal congestion and sinus pressure. She has not attempted OTC antihistamines, Flonase or nasal washes. Continues to use Benadryl PRN. - Recommend starting Flonase and Zyrtec. Again, recommend avoiding Benadryl due to crossing of BBB. She is aware of antihistamines and . - One histamine blunted on skin testing at initial appointment. ImmunoCaps sent off for further evaluation of atopic disease, which showed no additional aeroallergens and total IgE <2. - Given ongoing PND, will continue Azelastine. - Consider re-skin testing to negative aeroallergens given one histamine blunted on initial skin testing. 03/19/2024 Other allergic rhinitis (ICD-10 - J30.89) Follow allergen avoidance, meds and consider SCIT as an adjunctive treatment to current regimen 04/08/2024 Chronic migraine without aura, not intractable, without status migrainosus (ICD-10 - G43.709) -Abortive treatment plan: Rizatriptan 10 mg prn. Patient counseled r.e. potential side effects.-Preventiv e treatment plan: Start Qulipta 60 mg daily. [...] insomnia, MOH, and cervical/para scapular myofascial pain 03/19/2024 Other chronic allergic conjunctivitis (ICD-10 - H10.45) Given ocular signs and symptoms I encouraged allergy avoidance measures and meds as above. If symptoms persist, consider adding additional medications including intraocular antihistamine/mast cell stabilizer, PRN and consider SCIT as an adjunctive measure 02/06/2024 Other adverse food reactions, not elsewhere classified, initial encounter (ICD-10 - T78.1XXA) Fernanda reports bumps around mouth in addition to splotchiness and bumps to face and neck that will last for days. These symptoms will occur within minutes of eating fresh fruits and vegetables, caffeine, and some nuts. Sometimes she is able to ingest these foods without issues. Currently takes Benadryl and symptoms will resolve. Tam make her colon itchy within a day. She also reports the same symptoms, but more severe after eating a bread, egg and cheese with pesto sandwich. She was given IV Benadryl at [employer] office. She does not have pictures of recent reactions. She denies other iGE-mediated symptoms of angioedema, shortness of breath, nausea, vomiting, diarrhea. She reports negative testing for celiac disease. She has never required AIE. - These symptoms with certain foods do not appear to be c/w IgE-mediated reactions. .Given this, discussed with patient that empirical food testing is not recommended due to possibility of false-positives. - The symptoms of oral tingling appear clinically consistent with oral allergy syndrome, a mild form of IgE-mediated allergy due to cross-reactivity between food allergens and pollens rather than an allergy to the actual food. - She had one picture from 2019 that was concerning for more flushing to bilateral cheeks and neck. Swelling was not apparent. - Encouraged to take pictures and journal for triggers. - Consider flushing workup and tryptase level - to discuss at follow-up. 02/06/2024 Other chronic allergic conjunctivitis (ICD-10 - H10.45) Given ocular signs and symptoms I encouraged allergy avoidance measures and meds as above. If symptoms persist, consider adding additional medications including intraocular antihistamine/mast cell stabilizer, PRN and consider SCIT as an adjunctive measure 04/08/2024 Myalgia, unspecified site (ICD-10 - M79.10) PT for myofascial work ([facility] in [place]). She has chronic migraine and vestibular migraine, compounded by high stress, chronic insomnia, MOH, and cervical/para scapular myofascial pain 03/19/2024 Other adverse food reactions, not elsewhere classified, initial encounter (ICD-10 - T78.1XXA) Fernanda reports bumps around mouth in addition to splotchiness and bumps to face and neck that will last for days. These symptoms will occur within minutes of eating fresh fruits and vegetables, caffeine, and some nuts. Sometimes she is able to ingest these foods without issues. Currently takes Benadryl and symptoms will resolve. Tam make her colon itchy within a day. She also reports the same symptoms, but more severe after eating a bread, egg and cheese with pesto sandwich. She was given IV Benadryl at [employer] office. She does not have pictures of recent reactions. She denies other iGE-mediated symptoms of angioedema, shortness of breath, nausea, vomiting, diarrhea. She reports negative testing for celiac disease. She has never required AIE. - Fernanda presents today with several pages of notes detailing a variety of symptoms. These include splotchy and bumpy skin on chest, head around mouth after consuming a variety of foods, including coffee, tea, raw onion, raw peppers, paprika, chili powder. She also reports itchy/red skin when walking outside, touching grass that resolves within a day. Also reporting itchy, red skin and itching tongue with almonds, peans and other nuts as well as fresh fruit and vegetables. Denies all IgE-mediated symptoms. - Again, these symptoms with certain foods do not appear to be c/w IgE-mediated reactions. Given this, discussed with patient that empirical food testing is not recommended due to possibility of false-positives. - The symptoms of oral tingling appear clinically consistent with oral allergy syndrome, a mild form of IgE-mediated allergy due to cross-reactivity between food allergens and pollens rather than an allergy to the actual food. - Pictures viewed today where she reports swelling and bumps. Swelling was not apparent nor bumps around mouth, but flushing to chest and bilateral cheeks was noted. - She reports GI issues, joint pain, fatigue and skin bumps with gluten, though reports negative Celiac disease in past. Recommend second opinoin with GI. - Encouraged to take pictures and journal for triggers. - Flushing workup and tryptase level ordered 04/08/2024 Insomnia, unspecified (ICD-10 - G47.00) Discuss with PCP going back on qHS gabapentin which she was on previously and it helped. Discuss with PCP switching from duloxetine to SSRI. She has chronic migraine and vestibular migraine, compounded by high stress, chronic insomnia, MOH, and cervical/para scapular myofascial pain 02/06/2024 Chronic sinusitis, unspecified (ICD-10 - J32.9) Patient reports 3-4 respiratory/sinus infections per year, requiring antibiotics and PO steroids. Given recurrent infections, she meets the JMF criteria for modified PIDD workup. - Recommended obtaining when off OCS for 8 weeks. Of note, patient uses prednisone PRN for RA flares. - Plan on obtaining modified PIDD work-up and plan on booster/Vitamin D supplementation based on results. 03/19/2024 Chronic sinusitis, unspecified (ICD-10 - J32.9) Patient reports 3-4 respiratory/sinus infections per year, requiring antibiotics and PO steroids. Given recurrent infections, she met the JMF criteria for modified PIDD workup, which revealed inadequate s. pneumo protection (02/27) and low vitamin d level (12.4). - Recommend [id number] with repeat titers in 4-6 weeks. 03/19/2024 Vitamin D deficiency, unspecified (ICD-10 - E55.9) Modified PIDD workup revealed vitamin D level 12.4. Patient was started on 50,000IU weekly for 8 weeks, currently on week 2. Will plan to recheck Vitamin D in 06/2024. 02/06/2024 Vitamin D deficiency, unspecified (ICD-10 - E55.9) R/o as stated above. 02/06/2024 Rash and other nonspecific skin eruption (ICD-10 - R21) She reports sensitive skin, specifically to fragrances as her skin will get itchy. Current products consist of All Free and Clear Detergent, uses dryer sheets. She uses Curell fragrance free moiturizer or CeraVe, Curell Facewash and Ivory bodywash, Herbal Essenence Shampoo and Conditioner. - Established a new regimen of unscented, dye free products. Recommend Vanicream line - samples given. 03/19/2024 Rash and other nonspecific skin eruption (ICD-10 - R21) She reports sensitive skin, specifically to fragrances as her skin will get itchy. Current products consist of All Free and Clear Detergent, uses dryer sheets. She uses Curell fragrance free moiturizer or CeraVe, Curell Facewash and Ivory bodywash, Herbal Essenence Shampoo and Conditioner. Today, reporting rashes from any bees wax products, dyes or fragrance on skin. She is also reporting swelling, keloids, redness, itching, irritation issues with piercings and costume jewelry. - Last visit, established a new regimen of unscented, dye free products. Continue Vanicream - Pictures viewed today are c/w flushing. No apparent swelling or urticaria. - Encouraged to continue to take picutres of further issues. - Discussed patch testing at length with patient. Patient is very interested given above-mentioned symptoms. 03/19/2024 Flushing (ICD-10 - R23.2) Fernanda presents today reporting splotchy and bumpy skin on chest, head around mouth after consuming a variety of foods, including coffee, tea, raw onion, raw peppers, paprika, chili powder. - Pictures viewed today are consistent with flushing. No apparent swelling or urticaria. - Laboratory workup ordered for further evaluation. - Encouraged to continue to take pictures and journal for triggers. 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 She reports her entire body broke out in hives at age 15. Does not recall treatment, but did not require AIE. - Continue avoidance and consider BHRT testing in future. 02/06/2024 Elevated blood-pressure reading, without diagnosis of hypertension (ICD-10 - R03.0) BP elevated today without symptoms of urgency or emergency. Continue serial checks and follow-up with PCP 03/19/2024 Latex allergy status (ICD-10 - Z91.040) Fernanda reports a a history of a dry, red rash on hands and around mouth after blowing up and hanging a balloon garland. No other IgE-mediated symptoms, but continues to avoid latex. - Latex IgE to be ordered at this time. 03/19/2024 Migraine with aura, not intractable, without status migrainosus (ICD-10 - G43.109) Fernanda reports a long history of migraines for the past several years, including ice pick headaches, tension headaches, migraines with associated nausea, light sensitivity and changes in vision. She reports being told to have neurology evaluation in the past, but never followed through. Symptoms can last for several days, described as debilitating. She treates with Tylenol. - Strongly encouraged neurology evaluation with Dr. Armstrong. 03/19/2024 Adverse effect of sulfonamides, initial encounter (ICD-10 - T37.0X5A) Fernanda reports allergy to sulfa after she was given Septra for erythema nodosum. She reports her entire body broke out in hives at age 15. Does not recall treatment, but did not require AIE. - Continue avoidance and consider BHRT testing in future. 03/19/2024 Elevated blood-pressure reading, without diagnosis of hypertension (ICD-10 - R03.0) BP elevated today without symptoms of urgency or emergency. Continue serial checks and follow-up with PCP 02/06/2024 Other 03/19/2024 Other 05/07/2024 She has chronic migraine and vestibular migraine, compounded by high stress, chronic insomnia, MOH, and cervical/para scapular myofascial pain Plan Of Treatment Pending Test Test Name Order Date METANEPHRINES, FRACT. LC/MS/MS, 24 HR UR INE 03/19/2024 METANEPHRINES, FRACT, FREE, LC/MS/MS, PL ASMA 03/19/2024 TRYPTASE 03/19/2024 VMA, 24-HOUR URINE 03/19/2024 HOMOVANILLIC ACID, 24-HR URINE 5-HIAA, 24-HOUR URINE 03/19/2024 HISTAMINE, 24 HOUR URINE 03/19/2024 LATEX (K82) IGE 03/19/2024 LEUKOTRIENE E4, URINE 03/19/2024 N METHYLHISTAMINE, 24 HOUR, URINE 2023 Insurance Providers Payer Name Payer Address Payer Phone Subscriber Number Group Number Insured Name Patient Relationship to Insured Coverage Start Date Coverage End Date [facility] [address] [place] [address] [id number] Fernanda Chong Self - patient is the insured 3 Medical (General) History Medical History History ICD Code RA Fibromyalga Anxiety Depression IBS GERD Migraine with aura
--- OUTSIDE RECORDS SUMMARY | 2024-11-13 10:33 | XMS_ITS | Data Portability ---
Author Organization [facility] Address [address] [place] [address] Assessment No assessment recorded. Plan of Treatment Reminders Order Date Submit Date Provider Last Modified By Organization Details Last Modified Time Details Appointments None recorded. Lab urinalysi s, dipstick 2017 018 trice In-Office Order, Internal Use Only DO Not Attach Compendium DO Not Attach Compendium, Do Not Delete/merge, [id number] 8 12:44:14 test, urine 2017 018 trice In-Office Order, Internal Use Only DO Not Attach Compendium DO Not Attach Compendium, Do Not Delete/merge, [id number] 8 12:44:14 pap, IG + HPV, cervical - please use Z11.51 in addition to code above for HPV testing. 2017 018 [facility], [address], [place], [address], 8 20:08:57 bacterial vaginosis + vaginitis panel, vaginal - Z11.3, Z20.0 2017 018 [facility], [address] [place] [address], [address], [place], [address], 8 11:36:02 HSV (1+2) DNA, qual, PCR, unspecifi ed specimen - Z11.3, Z20.2 2017 018 [facility], [address] [facility], [address], [place], [address], 8 11:36:02 culture, vaginal/r ectal, streptoco ccus group B - Z11.3, Z20.2 2017 018 [facility], [address] [facility], [address], [place], [address], 8 11:36:03 Referral None recorded. Procedures None recorded. Surgeries None recorded. Imaging None recorded. Medication Orders multivita min tablet 2017 018 [facility] [id number], [address], 8 12:44:17 Calcium with Vitamin D 600 mg-10 mcg (400 unit) tablet 2017 018 [facility] [id number], [address], 8 12:44:17 Lo Loestrin Fe 1 mg-10 mcg (24)/10 mcg (2) tablet 2017 018 [facility] [id number], [address], 8 13:04:30 Patient TargetsNo targets recorded. Patient Instructions Encounter Date Encounter Id Patient Instructions Last Modified By Organization Details Last Modified Time 06/24/2018 [id number] lupus: care instructions [email or web address] Not available 06/24/2018 12:44:56 Reason for Referral None Reported. Results Created Date Observation Date Name Description Value Unit Range Abnormal Flag Note LastModifiedBy Organization Detail LastModifiedTime 06/24/20 18 06/24/2018 pregn hunter test, urine HCG negati ve Not Available In-Office Order Internal Use Only DO Not Attach Compendium DO Not Attach Compendium, Do Not Delete/merge, [id number] 06/24/2018 12:39:55 06/24/2006/26/2018 pap, IG + HPV, cervi breanna diagnosis: Calvin hayes NEGAT CARLOS FOR INTRA EPITH ELIAL LESIO N AND MALIG MELLY . CELLU KJ OKEEFE ES ASSOC IATED WITH ATROP HY ARE PRESE NT. Not Available [facility] ([facility]) [address] [facility], [place], [address], 06/26/2018 20:08:57 06/24/20 18 06/26/2018 pap, IG + HPV, cervi breanna specimen adequacy: Calvin t Satis facto ry for evalu ation . Endoc ervic al compo nent may not be disti nguis hed in cases of atrop hy. Not Available [facility] ([facility]) [address] [place], [address], 06/26/2018 20:08:57 06/24/20 18 06/26/2018 pap, IG + HPV, cervi breanna clinician provided ICD10: Calvin hayes Z01.4 19 Z11.5 1 Not Available [facility] ([facility]) [address] [place], [address], 06/26/2018 20:08:57 06/24/20 18 06/26/2018 pap, IG + HPV, cervi breanna performed by: Calvin raygoza, Cytot génesis robison t (ASCP ) Not Available [facility] ([facility]) [address] [place], [address], 06/26/2018 20:08:57 06/24/20 18 06/26/2018 pap, IG + HPV, cervi breanna . . Not Available [facility] ([facility]) [address] [place], [address], 06/26/2018 20:08:57 06/24/20 18 06/26/2018 pap, IG + HPV, cervi breanna note: Calvin t The Pap smear is a scree art test desig marcos to aid in the detec tion of violeta ligna nt and malig nant condi tions of the uteri ne cervi x. It is not a diagn ostic proce dure and shoul d not be used as the sole means of detec ting cervi breanna cance r. Both false -posi tive and false -nega tive repor ts do occur . Not Available [facility] ([facility]) [address] [place], [address], 06/26/2018 20:08:57 06/24/20 18 06/26/2018 pap, IG + HPV, cervi breanna test methodology: TNP The Thin Prep( R) Image r was unabl e to read this speci men. There fore a manua l revie w was perfo rmed. Not Available [facility] ([facility]) [address] [place], [address], 06/26/2018 20:08:57 06/24/20 18 06/26/2018 pap, IG + HPV, cervi breanna HPV aptima Negati ve negati ve This test detec ts fourt een high- risk HPV types (16/1 8/31/ 33/35 /39/4 5/ 51/52 /56/5 8/59/ 66/68 ) witho ut diffe renti ation . Not Available [facility] ([facility]) [address] [place], [address], 06/26/2018 20:08:57 06/24/20 18 06/27/2018 bacte rial vagin osis + vagin itis panel , vagin al trich vag by MORGAN Negati ve negati ve Not Available [facility] ([facility]) [address] [place], [address], 06/30/2018 11:36:02 06/24/20 18 06/27/2018 bacte rial vagin osis + vagin itis panel , vagin al chlamydia trachomatis, MORGAN Negati ve negati ve Not Available [facility] ([facility]) [address] [place], [address], 06/30/2018 11:36:02 06/24/20 18 06/27/2018 bacte rial vagin osis + vagin itis panel , vagin al neisseria gonorrhoeae, MORGAN Negati ve negati ve Not Available [facility] ([facility]) [address] [place], [address], 06/30/2018 11:36:02 06/24/20 18 06/29/2018 bacte rial vagin osis + vagin itis panel , vagin al atopobium vaginae Low - 0 score Not Available [facility] ([facility]) [address] [place], [address], 06/30/2018 11:36:02 06/24/20 18 06/29/2018 bacte rial vagin osis + vagin itis panel , vagin al bvab 2 Low - 0 score Not Available [facility] ([facility]) [address] [place], [address], 06/30/2018 11:36:02 06/24/20 18 06/29/2018 bacte rial vagin osis + vagin itis panel , vagin al megasphaera 1 Low - 0 score Calcu late total score by candy العلي the 3 indiv idual bacte rial vagin osis (BV) marke r score s toget her. Total score is inter prete d as follo ws: Total score 0-1: Indic ates the absen ce of BV. Total score 2: Indet ermin ate for BV. Addit ional clini breanna data shoul d be evalu ated to estab brisa a diagn osis. Total score 3-6: Indic ates the prese nce of BV. This test was devel oped and its perfo rmanc e phi cteri stics deter mined by [facility]. It has not been clear ed or appro cassy by the Food and Drug Admin istra tion. The FDA has deter mined that such clear ance or appro promise is not neces dennys. Not Available [facility] ([facility]) [address] [place], [address], 06/30/2018 11:36:02 06/24/20 18 06/29/2018 bacte rial vagin osis + vagin itis panel , vagin al kike albicans, MORGAN Negati ve negati ve Not Available [facility] ([facility]) [address] [place], [address], 06/30/2018 11:36:02 06/24/20 18 06/29/2018 bacte rial vagin osis + vagin itis panel , vagin al kike glabrata, MORGAN Negati ve negati ve This test was devel oped and its perfo rmanc e phi cteri stics deter mined by [facility]. It has not been clear ed or appro cassy by the Food and Drug Admin istra tion. The FDA has deter mined that such clear ance or appro promise is not neces dennys. Not Available [facility] ([facility]) [address] [facility], [place], [address], 06/30/2018 11:36:02 06/24/20 18 06/30/2018 HSV (1+2) DNA, qual, PCR, unspe cifie d speci men hsv 1 MORGAN Negati ve negati ve Not Available [facility] ([facility]) [address] [place], [address], 06/30/2018 11:36:02 06/24/20 18 06/30/2018 HSV (1+2) DNA, qual, PCR, unspe cifie d speci men hsv 2 MORGAN Negati ve negati ve Not Available [facility] ([facility]) [address] [place], [address], 06/30/2018 11:36:02 06/24/20 18 06/26/2018 cultu re, vagin al/re ctal, strep tococ cus group B strep gp B MORGAN Positi ve negati ve abnormal Cente rs for Disea se Contr ol and Preve ntion (CDC) and Ameri can Congr ess of Obste trici ans and Gynec ologi sts (ACOG ) guide lines for preve ntion of perin atal group B strep tococ breanna (GBS) disea se speci fy co-co llect ion of a vagin al and recta l swab speci men to maxim ize sensi tivit y of GBS detec tion. Per the CDC and ACOG, swabb ing both the lower vagin a and rectu m subst antia lly incre ases the yield of detec tion janina red with sampl ing the vagin a alone . Penic illin G, ampic illin , or cefaz shamika are indic ated for intra partu m proph ylaxi s of perin atal GBS colon izati on. Refle x susce ptibi lity testi ng shoul d be perfo rmed prior to use of clind amyci n only on GBS isola chanel from penic illin -franci rgic women who are consi dered a high risk for anaph ylaxi s. Treat ment with vanco mycin witho ut addit ional testi ng is warra nted if resis tance to clind amyci n is noted . Not Available [facility] ([facility]) [address] [facility], [place], [address], 06/30/2018 11:36:03 06/24/20 18 06/24/2018 urina lysis , dipst ick Leukocytes Negati ve Not Available In-Office Order Internal Use Only DO Not Attach Compendium DO Not Attach Compendium, Do Not Delete/merge, [id number] 06/24/2018 12:39:42 06/24/20 18 06/24/2018 urina lysis , dipst ick Nitrite negati ve Not Available In-Office Order Internal Use Only DO Not Attach Compendium DO Not Attach Compendium, Do Not Delete/merge, [id number] 06/24/2018 12:39:42 06/24/20 18 06/24/2018 urina lysis , dipst ick Urobilinogen .2 Not Available In-Of fice Order Internal Use Only DO Not Attach Compendium DO Not Attach Compendium, Do Not Delete/merge, [id number] 06/24/2018 12:39:42 06/24/20 18 06/24/2018 urina lysis , dipst ick Protein Negati ve Not Available In-Office Order Internal Use Only DO Not Attach Compendium DO Not Attach Compendium, Do Not Delete/merge, [id number] 06/24/2018 12:39:42 06/24/20 18 06/24/2018 urina lysis , dipst ick pH 6.0 Not Available In-Office Order Internal Use Only DO Not Attach Compendium DO Not Attach Compendium, Do Not Delete/merge, [id number] 06/24/2018 12:39:42 06/24/20 18 06/24/2018 urina lysis , dipst ick Blood Modera te Not Available In-Office Order Internal Use Only DO Not Attach Compendium DO Not Attach Compendium, Do Not Delete/merge, [id number] 06/24/2018 12:39:42 06/24/20 18 06/24/2018 urina lysis , dipst ick Specific [place] 1.025 Not Available In-Off ice Order Internal Use Only DO Not Attach Compendium DO Not Attach Compendium, Do Not Delete/merge, [id number] 06/24/2018 12:39:42 06/24/20 18 06/24/2018 urina lysis , dipst ick Ketone Small Not Available In-Office Order Internal Use Only DO Not Attach Compendium DO Not Attach Compendium, Do Not Delete/merge, [id number] 06/24/2018 12:39:42 06/24/20 18 06/24/2018 urina lysis , dipst ick Bilirubin Negati ve Not Available In-Office Order Internal Use Only DO Not Attach Compendium DO Not Attach Compendium, Do Not Delete/merge, [id number] 06/24/2018 12:39:42 06/24/20 18 06/24/2018 urina lysis , dipst ick Glucose Negati ve Not Available In-Office Order Internal Use Only DO Not Attach Compendium DO Not Attach Compendium, Do Not Delete/merge, [id number] 06/24/2018 12:39:42 Result Notes None recorded. 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 Medical Equipment None Reported. Allergies Allergen ID Allergen Name Allergen Category Reaction Reaction Severity Criticality Documentation Date Start Date Code Code System Note Provider Name and Address Organization Details Recorded Time 419683 Substance with sulfonami de structure and antibacte rial mechanism of action (substanc e) medicatio n Not available Not available Not available 06/24/2018 28019 8003 SNOMED TASHA Bean, [place] Piedad KOCH 8 12:28:39 557282 azathiopr ine medicatio n Not available Not available Not available 06/24/2018 1256 RxNorm TASHA Bean, SHLOMO Herbert [facility] 8 12:29:03 Medications Name Sig Start Date Stop Date Status Note LastModified by Organization Details LastModified Time multivitamin tablet Take 1 tablet every day by oral route. 2017 active Not Available Not Available Not Avai lable azithromycin 250 mg tablet TAKE 2 TABLETS (500 MG) BY ORAL ROUTE ONCE DAILY FOR 1 DAY THEN 1 TABLET (250 MG) BY ORAL ROUTE ONCE DAILY FOR 4 DAYS 01/10 completed Not Available Not Available Not Available gabapentin 300 mg capsule active Not Available Not Available Not Available methylpredni solone 4 mg tablets in a dose pack active Not Available Not Available No t Available Vitamin D2 1,250 mcg (50,000 unit) capsule 06/24 completed Not Available Not Available Not Available fluticasone propionate 50 mcg/actuatio n nasal spray,suspen sabine active Not Available Not Available Not Available Calcium with Vitamin D 600 mg-10 mcg (400 unit) tablet Take 1 tablet twice a day by oral route. 2017 active Not Available Not Available Not Avai lable Lo Loestrin Fe 1 mg-10 mcg (24)/10 mcg (2) tablet active Not Available Not Available Not Available Vitals Date Recorded Body height Body mass index (BMI) Body weight Systolic blood pressure Diastolic blood pressure Provider Name and Address Organization Details Last Updated DateTime 06/24/2018 157.48 cm 24.5 kg/m2 26521.38 g 110 mm[Hg] 60 mm[Hg] Delfina White [place] - [facility] 8 12:28:23 Social History Question Answer Notes LastModified by Organizat ion Details LastModified Time Tobacco Smoking Status Never Smoker Delfina White MA null, [place] - [facility] 06/24/2018 12:35:06 Do You Have An Advance Directive? No Information not available 06/24/2018 What Is Your Level Of Alcohol Consumption? Occasional Information not available 06/24/2018 Is Blood Transfusion Acceptable In An Emergency? Yes Information not available 06/24/2018 What Is Your Level Of Caffeine Consumption? Occasional Information not available 06/24/2018 How Much Tobacco Do You Chew? None Information not available 06/24/2018 Are You Currently Employed? Yes Information not available 06/24/2018 Which Illicit Or Recreational Drugs Have You Used? 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 06/24/2018 Information not available 01/29/2019 How Many Children Do You Have? 0 Information not available 06/24/2018 Performs Monthly Self-breast Exam? No Information not available 06/24/2018 Do You Use Protection During Sex? Always Information not available 06/24/2018 What Is Your Relationship Status? Single Information not available 06/24/2018 Seat Belts Used Routinely Yes Information not available 06/24/2018 Are You Sexually Active? Yes Information not available 06/24/2018 How Much Tobacco Do You Smoke? No Information not available 06/24/2018 General Stress Level Medium Information not available 06/24/2018 Do You Use Sunscreen Routinely? Yes Information not available 06/24/2018 How Many Years Have You Smoked Tobacco? 0 Information not available 06/24/2018 Sex: Unknown Functional Status Question Answer Note LastModified by Organization D etails LastModified Time What is your exercise level? Moderate Information not available 06/24/2018 Mental Status None recorded. Family History Relationship Description Onset Age of this Age Resolved Age Notes LastModified by Organization Details LastModified Time Mother Fibromyalgia Not availab le 06/24/2018 12:34:31 Mother Irritable bowel syndrome Not available 2017 12:34:43 Father Hypertensive disorder Not available 2017 12:34:56 Medical History Condition Response Other Gynecological History Statement/Question Response Abnormal Pap N Flow Moderate STIs/STDs N HPV Vaccine Y Duration of Flow (days) 4 Age at Menarche 11 Current Control Method None Frequency of Cycle (Q days) 28 Sexually Active? Y Menses Monthly Y Date of Last Pap Smear Sexual Problems? N LMP Definite Desired Control Method BCPs Obstetrics History GPAL:G 0 P 0 0 0 0 Past Encounters Encounter ID Performer Location Encounter Start Date Encounter Closed Date Diagnosis/Indication Diagnosis SNOMED-CT Code Diagnosis ICD10 Code Diagnosis Note [id number] Guero Oro MD [facility] ([facility] ANALYST) [address] [place] [phone] 06/24/2018 11:57:45 06/24/2018 16:56:19 Gynecologic examination 76511579 Z01.419 Exposure t o sexually transmissible disorder 564734278 Z20.2 Systemic l upus erythematosus 60773860 M32.9 Family julia nning surveillance 100281195 Z30.09 Health Concerns Section Related Observation LastModified by Organization Detai ls LastModified Time None Recorded Concern Status LastModified by Organization Details LastModified Time None Recorded Advance Directives Directive N: Payers Encounter Date Sequence Insurance Name Policy Number Policy Birch Covered Member ID Birch Member ID Guarantor Name 06/24/2018 1 [facility] [id number] Fernanda Chong [id number] Fernanda Chong Notes Date Note Type Note Provider Name and Address Organization Details Recorded Time 06/24/2018 text/html Annual GYNReport ed bypatient.Menstrua l cycle:Normal menses Urinary symptoms:No hematuria; No incontinence Vulva:No genital lesion Vagina:Normal vaginal discharge Breast:No breast pain; No breast lump; No nipple discharge Sexual complaints:No sexual complaints; No pain during intercourse; Normal libido Menopausal Symptoms:No menopausal symptoms; Normal vaginal lubrication Psychological symptoms:No depression; No anxiety; No PMDD Preventive measures:Encourage self breast examination; Encourage regular exercise; Encourage no tobacco use 27 yo CF G0 with hx of lupus presents for [employer]. Pt is interested in OCPs for control. States she had her Gardasil shots in high school with Dr. Oro. States she was diagnosed with lupus in 2016 which has been well controlled and is currently not on any medications for this. No concerns or complaints for today. Guero Oro [facility], [place] - [facility] 06/24/2018 18:29:38 OBGyn Episode No OBEpisode recorded.
--- OUTSIDE RECORDS SUMMARY | 2024-11-13 10:34 | XMS_ITS | Data Portability ---
Author Organization [facility], Main Office Address [address] [place] [address] Assessment No assessment recorded. Plan of Treatment Reminders Order Date Submit Date Provider Last Modified By Organization Details Last Modified Time Details Appointments None recorded. Lab lipid panel, serum 2024 025 [facility] (Lab), [address] [place] [address], [phone], 5 10:40:54 CMP, serum or plasma 2024 025 [facility] (Lab), [address] [place] [address], [phone], 5 10:42:11 CBC w/ auto diff 2024 025 [facility] (Lab), [address] [place] [address], [id number], 5 10:45:32 lipid panel, serum 2023 024 [facility] (Lab), [address] [place], [address], 4 13:43:33 CMP, serum or plasma 2023 024 [facility] (Lab), [address] [place], [address], 4 13:43:38 Referral None recorded. Procedures None recorded. Surgeries None recorded. Imaging US, jovany howard 2023 024 [email or web address] [facility], [address], [place], [address], 4 08:58:50 MRI, lumbar spine, w/o contrast 2023 024 [facility], [address], [place], [address], 4 09:20:06 Medication Orders duloxetine 20 mg capsule,de layed release 2024 025 [id number], [address] [place] [address], [id number], 5 16:33:03 gabapentin 600 mg tablet 2024 025 [facility], [address] [place] [address], [id number], 5 16:33:05 duloxetine 20 mg capsule,de layed release 2023 024 [facility], [address] [place] [address], [id number], 4 16:14:08 gabapentin 300 mg capsule [address] [facility] #76580, [address] [place] [address], [id number], 5 16:33:02 duloxetine 20 mg capsule,de layed release 2023 024 [facility] #16506, [address] [place] [address], [id number], 4 16:21:47 duloxetine 40 mg capsule,de layed release [address] [facility] #57788, [address] [place] [address], [id number], 4 16:22:16 duloxetine 20 mg capsule,de layed release 2023 024 [email or web address] [facility] #02608, [address], [place], [place], [phone], 4 16:22:20 Patient TargetsNo targets recorded. Patient InstructionsNo instructions recorded. Reason for Referral None Reported. Results Created Date Observation Date Name Description Value Unit Range Abnormal Flag Note LastModifiedBy Organization Detail LastModifiedTime 12/19/19 24 12/19/2023 LIPID PANEL cholesterol 243 mg/dL 140-19 9 high NIH SUZANNE NSUS RECOM MENDA TION FOR HO STERO L: ADULT CHILD LOW RISK: <200 <170 BORDE RLINE : <200- 239 ----- HIGH RISK: >240 >200 Not Available [facility] (Lab) [address] [place], [address], 12/19/2023 13:43:33 12/19/19 24 12/19/2023 LIPID PANEL triglyceride s 125 mg/dL 0-150 NIH SUZANNE NSUS REPOR T RECOM MENDA TION FOR TRIGL YCERI EDMAR: ADULT CHILD LOW RISK: <150 ----- BODER LINE: 150-1 99 ----- HIGH RISK: >200 ----- Not Available [facility] (Lab) [address] [place], [address], 12/19/2023 13:43:33 12/19/19 24 12/19/2023 LIPID PANEL HDL cholesterol 53 mg/dL 40- Not Available [facility] (Lab) [address] [place], [address], 12/19/2023 13:43:33 12/19/19 24 12/19/2023 LIPID PANEL LDL cholesterol, calculated 165 mg/dL 0-130 high NIH SUAZNNE NSUS REPOR T RECOM MENDA TIONS FOR LDL: ADULT CHILD LOW RISK <130 <110 (OPTI MAL LDL) <100 ----- BORDE RLINE : 130-1 59 ----- HIGH RISK: >160 >130 A TRIGL YCERI DE RESUL T >400 INVAL IDATE S THE CALCU LATIO N FOR LDL FRACT IONAT ION - THE LDL RESUL T WILL NOT BE REPOR BRIDGER. Not Available [facility] (Lab) [address] [place], [address], 12/19/2023 13:43:33 12/19/19 24 12/19/2023 COMPR EHENS CARLOS METAB OLIC PANEL sodium 138 mmol/ L 137-14 5 Not Available [facility] (Lab) [address] [place], [address], 12/19/2023 13:43:38 12/19/19 24 12/19/2023 COMPR EHENS CARLOS METAB OLIC PANEL potassium 4.3 mmol/ L 3.5-5. 1 Not Available [facility] (Lab) [address] [place], [address], 12/19/2023 13:43:38 12/19/19 24 12/19/2023 COMPR EHENS CARLOS METAB OLIC PANEL chloride 107 mmol/ L 98-107 Not Available [facility] (Lab) [address] [place], [address], 12/19/2023 13:43:38 12/19/19 24 12/19/2023 COMPR EHENS CARLOS METAB OLIC PANEL carbon dioxide 25 mmol/ L 22-30 Not Available [facility] (Lab) [address] [place], [address], 12/19/2023 13:43:38 12/19/19 24 12/19/2023 COMPR EHENS CARLOS METAB OLIC PANEL anion gap 10.3 mmol/ L 14-22 low Not Available [facility] (Lab) [address] [place], [address], 12/19/2023 13:43:38 12/19/19 24 12/19/2023 COMPR EHENS CARLOS METAB OLIC PANEL glucose 85 mg/dL 70-99 Not Available [facility] (Lab) [address] [place], [address], 12/19/2023 13:43:38 12/19/19 24 12/19/2023 COMPR EHENS CARLOS METAB OLIC PANEL BUN 10 mg/dL 8-19 Not Available [facility] (Lab) [address] [place], [address], 12/19/2023 13:43:38 12/19/19 24 12/19/2023 COMPR EHENS CARLOS METAB OLIC PANEL creatinine 0.58 mg/dL 0.66-1 .25 low Not Available [facility] (Lab) [address] [place], [address], 12/19/2023 13:43:38 12/19/19 24 12/19/2023 COMPR EHENS CARLOS METAB OLIC PANEL GFR >60 Refer ence Range : [place] [facility] GFR Healt hy Adult : >60 mL/mi n/1.7 3 m2 Chron ic Kidne y Disea se: 15-60 mL/mi n/1.7 3 m2 Kidne y Failu re: <15/m L/min /1.73 m2 www.n iddk. nih.g ov The MDRD study equat ion has not been valid ated in child eryn <18 years of age; pregn ant women ; the elder ly >85 years of age; or in some racia l or ethni c subgr oups, such as Hisny nics. Outsi de the valid ated cleo eters , estim ated GFR is less accur ate, requi ring clini breanna judgm ent on a case- by-ca se basis . Clini breanna inter preta tion for other races and ages must be made by the clini rachid. The MDRD study equat ion has not been valid ated for the evalu ation of serum creat inine relat ed to nutri kavya l statu s or medic ation usage . For perso ns <18 years of age, a pedia tric GFR calcu lator is avail able on the NKF websi te: https ://alexa ramírez.jeanmarie castillo.o elgin/pr mauricioess ional s/kdo qi/gf r_cal culat or Not Available [facility] (Lab) [address] [place], [address], 12/19/2023 13:43:38 12/19/19 24 12/19/2023 COMPR EHENS CARLOS METAB OLIC PANEL alkaline phosphatase 59 U/L 38-126 Not Available [facility] (Lab) [address] [place], [address], 12/19/2023 13:43:38 12/19/19 24 12/19/2023 COMPR EHENS CARLOS METAB OLIC PANEL alanine aminotransfe rase 32 U/L 0-35 Not Available [facility] (Lab) [address] [place], [address], 12/19/2023 13:43:38 12/19/19 24 12/19/2023 COMPR EHENS CARLOS METAB OLIC PANEL aspartate aminotransfe rase 30 U/L 15-37 Not Available [facility] (Lab) [address] [place], [address], 12/19/2023 13:43:38 12/19/19 24 12/19/2023 COMPR EHENS CARLOS METAB OLIC PANEL bilirubin, total 0.60 mg/dL 0.20-1 .30 Not Available [facility] (Lab) [address] [place], [address], 12/19/2023 13:43:38 12/19/19 24 12/19/2023 COMPR EHENS CARLOS METAB OLIC PANEL calcium 9.4 mg/dL 8.4-10 .2 Not Available [facility] (Lab) [address] [place], [address], 12/19/2023 13:43:38 12/19/19 24 12/19/2023 COMPR EHENS CARLOS METAB OLIC PANEL total protein 8.2 g/dL 6.3-8. 2 Not Available [facility] (Lab) [address] [place], [address], 12/19/2023 13:43:38 12/19/19 24 12/19/2023 COMPR EHENS CARLOS METAB OLIC PANEL albumin 5.0 g/dL 3.4-5. 0 Not Available [facility] (Lab) [address] [place], [address], 12/19/2023 13:43:38 12/19/19 24 12/19/2023 COMPR EHENS CARLOS METAB OLIC PANEL globulin 3.2 g/dL 2.6-4. 2 Not Available [facility] (Lab) [address] [place], [address], 12/19/2023 13:43:38 12/19/19 24 12/19/2023 COMPR EHENS CARLOS METAB OLIC PANEL A/G ratio 1.6 ratio 1.0-2. 0 Not Available [facility] (Lab) [address] [place], [address], 12/19/2023 13:43:38 12/20/19 24 07/10/2022 US, obste tric No observ ation record ed. [email or web address] [facility] [address], [place], [address], 12/24/2023 13:21:35 12/31/19 24 12/30/2023 MRI, lumba r spine , w/o contr ast No observ ation record ed. [email or web address] [facility] [address], [place], [address], 01/01/2024 12:08:17 03/13/20 24 03/13/2024 US, gallb ladde r No observ ation record ed. [email or web address] [facility] [address], [place], [address], 03/17/2024 11:19:23 Result Notes None recorded. Problems Name Problem SNOMED Code Status Onset Date Resolution Date Notes Provider Name and Address Organization Details Recorded Time Insomnia 799521917 Active 2021 Not Available [facility] 3 16:16:00 Lupus erythemato [place] 073424815 Active Not Available [facility] 3 16:16:00 Fibromyalg ia 078340950 Active Not Available [facility] 3 16:16:00 On examinatio n - rash present Completed Not Available [facility] 3 16:16:00 Bowel problem 442828173 Active Not Available [facility] 3 16:16:00 Pain of multiple joints 83863556 Active Not Available [facility] 3 16:16:00 Obesity 063328784 Active 2021 Not Available [facility] 3 16:16:00 Gastritis 4954617 Active Not Available [facility] 3 16:16:01 Upper respirator y infection 14923781 Completed Not Available [facility] 3 16:16:01 Acid reflux 453666958 Active 2021 Not Available [facility] 3 16:16:01 Rheumatoid arthritis 14723126 Active 2021 Not Available [facility] 3 16:16:01 Skin nodule 14820483 Active Not Available [facility] 3 16:16:01 Anxiety 63693271 Active 2023 Parker Aragon MD [address], [place], [address] , [employer] [facility] [employer] 4 11:50:25 Low back pain 946121020 Active 2023 Parker Aragon MD [address], [address], [place], [address] , [employer] [facility] 4 11:50:38 Irritable bowel syndrome 04246540 Active 2023 Parker Aragon MD [address], [address], [place], [address] , [place] [facility] 4 11:53:23 Right upper quadrant pain 887996646 Active 2023 Parker Aragon MD [address], [address], [place], [address] , [place] [facility] 4 16:19:20 Wheezing 69916395 Active 2023 Pratibha Atkins NP [address], [address], [place], [address] , [place] [facility] 4 14:58:14 Hyperlipid emia 14827554 Active 2024 Parker Aragon MD [address], [address], [place], [address] , [place] [facility] 5 16:32:03 Fatigue 84449534 Active 2024 Parker Aragon MD [address], [address], [place], [address] , [place] [facility] 5 16:35:01 Problem Notes None recorded. Procedures Surgical History Date Name Laterality Status Provider Name and Address Organization Details Recorded Time 06/12/2021 Endoscopy completed Not Available [facility] 09/05/2022 16:14:56 Imaging Results Imaging Date Name Status LastModified by Organiz ation Details LastModified Time 07/10/2022 US, obstetric completed [email or web address] [facility] [address], [place], [address], 12/24/2023 13:21:35 12/30/2023 MRI, lumbar spine, w/o contrast completed [address], [place], [address], 01/01/2024 12:08:17 03/13/2024 US, gallbladder completed [email or web address] [facility] [address], [place], [address], 03/17/2024 11:19:23 Procedure Notes None recorded. Medical Equipment None Reported. Allergies Allergen ID Allergen Name Allergen Category Reaction Reaction Severity Criticality Documentation Date Start Date Code Code System Note Provider Name and Address Organization Details Recorded Time 40405 sulfameth oxazole / trimethop rim medicatio n hives Not available Not available 09/05/2022 58297 RxNorm Not Available [facility] 3 16:16:52 [address]7715 azathiopr ine medicatio n Not available Not available Not available 12/19/2023 1256 RxNorm Isaura gregory, [place] null, [place] [facility] 4 11:22:39 Medications Name Sig Start Date Stop Date Status Note LastModified by Organization Details LastModified Time amoxicill in 500 mg capsule Take 1 capsule every 8 hours by oral route for 7 days. 04/12 completed Not Available Not Available Not Available prednison e 10 mg tablet take 3 tabelts for 2 days, then take 2 tablets for 2 days and then take 1 tablet for 2 days active Not Available Not Available No t Available gabapenti n 600 mg tablet TAKE 1 TABLET BY MOUTH EVERY EVENING 2024 active Not Available Not Available Not Avai lable azithromy mark 250 mg tablet Take 2 TABLEts the first day then 1/day 04/12 completed Not Available Not Available Not Available IBU 800 mg tablet 04/27 completed Not Available Not Available Not Available prednison e 5 mg tablet TAKE 1 TO 3 TABLETS BY MOUTH DAILY NEEDED 04/27 completed Not Available Not Available Not Available amoxicill in 500 mg tablet Take 1 tablet 3 times a day by oral route for 7 days. 03/23 completed Not Available Not Available Not Available pantopraz ole 20 mg tablet,de layed release Take 2 tablets every day by oral route. active Not Available Not Available No t Available meloxicam 7.5 mg tablet TAKE 2 TABLETS BY MOUTH FOR 1 DAY THEN TAKE 1 TABLET BY MOUTH DAILY FOR ARTHRITI S 07/26 completed Not Available Not Available Not Available methotrex ate sodium 2.5 mg tablet TAKE 5 TABLETS BY MOUTH 1 TIME WEEKLY IN THE MORNING AND IN THE EVENING 07/26 completed Not Available Not Available Not Available hyoscyami ne ER 0.375 mg tablet,ex tended release,1 2 hr TAKE 1 TABLET BY MOUTH EVERY 12 HOURS NEEDED 04/27 completed Not Available Not Available Not Available prednison e 2.5 mg tablet TAKE 3 TABLETS BY MOUTH DAILY 04/12 completed Not Available Not Available Not Available pantopraz ole 40 mg tablet,de layed release Take 1 tablet every day by oral route. 04/27 completed Not Available Not Available Not Available gabapenti n 300 mg capsule TAKE 1 CAPSULE BY MOUTH EVERY DAY AT BEDTIME active Not Available Not Available No t Available folic acid 1 mg tablet 07/26 completed Not Available Not Available Not Available methylpre dnisolone 4 mg tablets in a dose pack take as directed 04/12 completed Not Available Not Available Not Available albuterol sulfate HFA 90 mcg/actua tion aerosol inhaler Inhale 2 puffs every 4 hours by inhalati on route as needed. 2023 active Not Available Not Available Not Avai lable Vitamin D2 1,250 mcg (50,000 unit) capsule 04/27 completed Not Available Not Available Not Available fluticaso ne propionat e 50 mcg/actua tion nasal spray,[place] [facility] 04/27 completed Not Available Not Available Not Available amoxicill in 875 mg-potass ium clavulana te 125 mg tablet 04/12 completed Not Available Not Available Not Available Vitamin D 50,000 unit capsule Take by oral route. active allergis t Not Available Not Available Not Available duloxetin e 20 mg capsule,d elayed release Take 1 capsule every day by oral route. 2024 active Not Available Not Available Not Avai lable Simponi IV- infusion active Not Available Not Available No t Available Lo Loestrin Fe 1 mg-10 mcg (24)/10 mcg (2) tablet TAKE 1 TABLET BY MOUTH DAILY SKIPPING PLACEBO TABLETS. TAKE 1 WEEK OFF FOR PERIOD AND RESUME FOR ANOTHER 3 MONTHS 07/26 completed Not Available Not Available Not Available Flonase Allergy Relief active Not Available Not Available Not Available duloxetin e 40 mg capsule,d elayed release Take 1 capsule every day by oral route. 04/21 completed Not Available Not Available Not Available Vitals Date Recorded Body weight Body mass index (BMI) Body height Heart rate Oxygen saturation Oxygen saturation in Arterial blood by Pulse oximetry Systolic blood pressure Diastolic blood pressure Provider Name and Address Organization Details Last Updated DateTime 4 71198.5 7 g 38.1 kg/m2 157.48 cm 94 /min 97 % 97 % 124 mm[Hg] 80 mm[Hg] Samantha Wolff [facility] 4 11:17:31 Date Recorded Body height Body mass index (BMI) Body weight Body temperature Heart rate Oxygen saturation Oxygen saturation in Arterial blood by Pulse oximetry Systolic blood pressure Diastolic blood pressure Provider Name and Address Organization Details Last Updated DateTime 4 157.48 cm 37.1 kg/m2 57420.2 5 g 97.5 [degF] 80 /min 97 % 97 % 124 mm[Hg] 70 mm[Hg] Isaura gregory [facility] [employer] [facility] 4 16:05:52 Date Recorded Body weight Body mass index (BMI) Body height Body temperature Heart rate Oxygen saturation Oxygen saturation in Arterial blood by Pulse oximetry Systolic blood pressure Diastolic blood pressure Provider Name and Address Organization Details Last Updated DateTime 4 55272.2 5 g 37.1 kg/m2 157.48 cm 97.1 [degF] 110 /min 98 % 98 % 130 mm[Hg] 80 mm[Hg] Isaura gregory [facility] [employer] [facility] 4 15:59:36 Date Recorded Body height Body mass index (BMI) Body weight Body temperature Heart rate Oxygen saturation Oxygen saturation in Arterial blood by Pulse oximetry Systolic blood pressure Diastolic blood pressure Provider Name and Address Organization Details Last Updated DateTime 4 157.48 cm 37.7 kg/m2 06273.0 3 g 97.5 [degF] 84 /min 97 % 97 % 120 mm[Hg] 66 mm[Hg] Isaura gregory D[facility] [employer] [facility] 4 15:51:40 Date Recorded Body height Body mass index (BMI) Body weight Heart rate Body temperature Oxygen saturation Oxygen saturation in Arterial blood by Pulse oximetry Systolic blood pressure Diastolic blood pressure Provider Name and Address Organization Details Last Updated DateTime 5 157.48 cm 38 kg/m2 82634.2 1 g 89 /min 97.8 [degF] 98 % 98 % 124 mm[Hg] 76 mm[Hg] Melissa DERAS [facility] 5 16:22:35 Social History Question Answer Notes LastModified by Organizat ion Details LastModified Time Tobacco Smoking Status Never Smoker Not Available [facility] 09/05/2022 16:14:53 Do You Have An Advance Directive? No [id number] Information not available 09/05/2022 What Is Your Level Of Alcohol Consumption? Occasional [id number] 2052 Information not available 09/05/2022 What Is Your Level Of Caffeine Consumption? Occasional MIGRATION.340439 8951 Information not available 09/05/2022 What Is Your Code Status? Full Code [id number] Information not available 09/05/2022 In The 14 Days Before Symptom Onset, Have You Had Close Contact With A Laboratory-confirm ed COVID-19 While That Case Was Ill? No [id number] Information not available 09/05/2022 In The 14 Days Before Symptom Onset, Have You Had Close Contact With A Person Who Is Under Investigation For COVID-19 While That Person Was Ill? No MIGRATION.[id number] 0568 Information not available 09/05/2022 What Type Of Diet Are You Following? REGULAR MIGRATION.[id number] 3402 Information not available 09/05/2022 What Is Your Occupation? [employer] MIGRATION.[id number] 3548 Information not available 09/05/2022 Do You Have A Medical Power Of Intravenous Therapy Nurse? No MIGRATION.024920 8824 Information not available 09/05/2022 Have You Ever Been Counseled For Unhealthy Alcohol Use? No MIGRATION.176529 0063 Information not available 09/05/2022 What Is Your Relationship Status? MIGRATION.560681 5955 Information not available 09/05/2022 Do You Use Your Seat Belt Or Car Seat Routinely? Yes MIGRATION.366833 5848 Information not available 09/05/2022 Do You Have Smoke And Carbon Monoxide Detectors In Your Home? Yes MIGRATION.098214 7426 Information not available 09/05/2022 Are You Passively Exposed To Smoke? No MIGRATION.137875 7277 Information not available 09/05/2022 Do You Feel Stressed (tense, Restless, Nervous, Or Anxious, Or Unable To Sleep At Night)? [id number] MIGRATION.307561 8619 Information not available 09/05/2022 Do You Use Any Illicit Or Recreational Drugs? No MIGRATION.079269 4389 Information not available 09/05/2022 Do You Use Sunscreen Routinely? Yes MIGRATION.762059 9437 Information not available 09/05/2022 Have You Recently Traveled Abroad? No MIGRATION.308176 5398 Information not available 09/05/2022 Do You Have Any Dietary Restrictions? No MIGRATION.798747 3433 Information not available 09/05/2022 Sex: Unknown Functional Status Question Answer Note LastModified by Organizat ion Details LastModified Time What is your exercise level? None [id number] Information not available 09/05/2022 Mental Status None recorded. Family History Relationship Description Onset Age of this Age Resolved Age Notes LastModified by Organization Details LastModified Time Mother Irritable bowel syndrome [id number] [id number] Not available 09/05/2022 16:14:56 Mother Fibromyalgia MIGRATION.0 30 [id number] Not available 09/05/2022 16:14:56 Mother Degeneration of intervertebr al disc MIGRATION.396 [id number] Not available 09/05/2022 16:14:57 Father Hypertensive disorder MIGRATION.304 [id number] Not available 09/05/2022 16:14:57 Father Hypercholest erolemia MIGRATION.636 [id number] Not available 09/05/2022 16:14:57 Sister Degeneration of intervertebr al disc MIGRATION.923 [id number] Not available 09/05/2022 16:14:57 Sister Fibromyalgia MIGRATION.0 30 [id number] Not available 09/05/2022 16:14:57 Medical History No medical history recorded. Gynecological HistoryNo gynecological history recorded. Obstetrics History GPAL:G 0 P 0 0 0 0 Immunizations Vaccine Type Date Status Note Provider Nam e and Address Organization Details Recorded Time Influenza, split virus, trivalent, PF 4 completed ST[place], [place] - [facility] 05/19/2024 17:13:40 SARS-COV-2 (COVID-19) vaccine, UNSPECIFIED 2 completed Not Available [facility] 09/05/2022 16:16:51 COVID-19 Non-US Vaccine, Product Unknown completed Not Available [facility] 09/05/2022 16:16:51 Past Encounters Encounter ID Performer Location Encounter Start Date Encounter Closed Date Diagnosis/Indication Diagnosis SNOMED-CT Code Diagnosis ICD10 Code Diagnosis Note [id number] _ATHN_MIGR ATION_1 _ATHENA_M IGRATION_ DEFAULT_1 _1 , 04/12/2021 00:00:00 04/12/2021 11:26:21 [id number] _ATHN_MIGR ATION_1 _ATHENA_M IGRATION_ DEFAULT_1 _1 , 07/26/2021 00:00:00 07/26/2021 17:06:30 [id number] Parker Aragon MD [facility] Internal [address] [address] 12/19/2021 00:00:00 12/19/2021 16:23:52 [id number] Parker Aragon MD [facility] Internal [address] [address] 04/27/2022 00:00:00 04/27/2022 12:20:27 [id number] Parker Aragon MD [facility] Internal [address] [address] 12/19/2023 11:10:12 12/19/2023 12:08:33 Fibromyalgia 570376031 M79.7 start duloxetine Insomnia 632387253 G47.0 0 otc Acid reflux 686848055 K2 1.9 meds help Obesity 272547566 E66.9 advised to lose Rheumatoid arthritis 698 45801 M06.9 getting treatment Adult heal th examination 244225796 Z00.00 Colonoscop y- 07/2023- polyp removed- benignEGD- 07/2023 - Dr. Moraes- 3COVID- 09/10/2020 , 07/24/2021 Anxiety 58135954 F41.9 start meds Low back pain 700280283 M54.50 getting worse, some radiation to the leg Irritable bowel syndrome 06573135 K58.9 meds help [id number] Parker Aragon MD [facility] Internal Med [address] [facility] [place] [address] 01/16/2024 15:50:31 01/16/2024 16:23:07 Fibromyalgia 097087861 M79.7 ^ duloxetine Right uppe r quadrant pain 838540031 R10.11 [id number] Parker Aragon MD [facility] Internal Med [address] [facility] [place] [address] 04/21/2024 15:52:41 04/21/2024 16:22:36 Fibromyalgia 051348828 M79.7 start duloxetine 20 mg qd, add gabapentin Adult heal th examination 268953008 Z00.00 Colonoscop y- 07/2023- polyp removed- benignEGD- 07/2023 - Dr. Moraes- 3COVID- 09/10/2020 , 07/24/2021 [id number] Parker Aragon MD [facility] Internal Med [address] [id number] [place] [place] [address] 05/19/2024 15:43:01 05/19/2024 16:19:02 Fibromyalgia 086038309 M79.7 meds help Adult heal th examination 480999498 Z00.00 Colonoscop y- 07/2023- polyp removed- benignEGD- 07/2023 - Dr. Moraes- 05/19/2024 COVID- 09/10/2020 , 07/24/2021 Administra tion of influenza vaccine 93971478 Z23 Insomnia 878289073 G47.0 0 otc Acid reflux 134018851 K2 1.9 meds help Obesity 124164507 E66.9 advised to lose, watch carbs Rheumatoid arthritis 698 02866 M06.9 getting treatment Anxiety 09784176 F41.9 meds help Low back pain 611927469 M54.50 Irritable bowel syndrome 47523327 K58.9 meds help [id number] Parker Aragon MD [facility] Internal Med [address] [place] [place] [address] 11/02/2024 15:56:57 11/02/2024 16:48:00 Fibromyalgia 090196466 M79.7 meds help, wants to go back to her previous dose of gabapentin Adult heal th examination 533520270 Z00.00 Colonoscop y- 07/2023- polyp removed- benignEGD- 07/2023 - Dr. BarberFLU- 05/19/2024 COVID- 09/10/2020 , 07/24/2021 Insomnia 304873415 G47.0 0 otc Acid reflux 107625824 K2 1.9 meds help Obesity 341776564 E66.9 advised to lose, Rheumatoid arthritis 698 75106 M06.9 getting treatment Anxiety 66611333 F41.9 meds help Low back pain 474358937 M54.50 Irritable bowel syndrome 16821921 K58.9 better Hyperlipidemia 60844100 E78.5 advised to watch diet Fatigue 01530585 R53.83 likely has sleep apnea but insurance denies sleep study Health Concerns Section Related Observation LastModified by Organization Detai ls LastModified Time None Recorded Concern Status LastModified by Organization Details LastModified Time None Recorded Advance Directives Directive N: Payers Encounter Date Sequence Insurance Name Policy Number Policy Birch Covered Member ID Birch Member ID Guarantor Name 12/19/2023 1 [place] [address] Maria Nayak [id number] Fernanda Chong 01/16/2024 1 [place] [address] [place]ael [id number] Fernanda Chong 04/21/2024 1 [place] [employer] [place] [address] Maria Nayak [id number] Fernanda Chong 05/19/2024 1 [place] [address] Maria Nayak [id number] Fernanda Chong 11/02/2024 1 [place] [employer] [place] [place] [address] Maria Nayak [id number] Fernanda Chong Notes Date Note Type Note Provider Name and Address Organization Details Recorded Time 12/19/2023 text/html Pt is here today for f/u, Has not been seen since 04/27/22Rheumatoid arthritis- sero negative, seeing dr Dial, on 2 months infusions- Still has A LOT of bad days. Erythema Nodosum- some times gets flare ups, prednisone helps GERD- meds helpMed- tums prn, pantoprazole qd Fibromyalgia/Insom yo- back pain, legs, wants to see neurologistmed- was on Gabapentin 600 mg- Allergies- meds helpmed- NOT ON Fluticasone 50 mcg propanoate IBS- meds helpMed-NOT ON Hyoscyamine 0.375mg Obesity- does not have energy to do exercise Parker Aragon MD [address] [facility], [place], [address], [employer] 12/19/2023 11:54:49 01/16/2024 text/html she has Fibromyalgia, started on Duloxetine, feeling better, feeling more relaxed.sleeping fine. Also gets upper right abd. pain, pain is in her back as well along with having nausea. comes in attacksShe was told she needs gallbladder surgery and will need a referral to a general surg but was told shes needs to be done with breast feeding before it happens. her baby is now 18 mo and has been wingedHas had u/s last year while she was (results in chart) last notePt is here today for f/u, Has not been seen since 04/27/22Rheumatoid arthritis- sero negative, seeing dr Dial, on 2 months infusions- Still has A LOT of bad days. Erythema Nodosum- some times gets flare ups, prednisone helps GERD- meds helpMed- tums prn, pantoprazole qd Fibromyalgia/Insom yo- back pain, legs, wants to see neurologistmed- was on Gabapentin 600 mg- Allergies- meds helpmed- NOT ON Fluticasone 50 mcg propanoate IBS- meds helpMed-NOT ON Hyoscyamine 0.375mg Obesity- does not have energy to do exercise Parker Aragon MD [address], [address], [place], [address], [employer] 01/16/2024 16:22:53 04/21/2024 text/html Pt is here today for f/u, she could not tolerate duloxetine 40 mg , 20 mg was not giving any side effects.she was on gabapentin but was stopped due to being in the past. LAST VISITAnxiety- on meds but does not think it helps much. WOULD LIKE TO CHENGE. Neurologist thinks she would benefit from an SSRI Rheumatoid arthritis- sero negative, seeing dr Dial, on 2 months infusions- Still has A LOT of bad days.Meds- Simponi - Every 2 months Erythema Nodosum- some times gets flare ups, prednisone helps GERD- meds helpMed- Tums prn, pantoprazole qd Fibromyalgia/Insom yo- back pain, legs, wants to see neurologistMed- was on Gabapentin 600 mg- Has not had it for a while but would like to restart Migraines - Thinks a lot of her headaches are from the Duloxetine. Has started physical therapy yesterday prescribed by Dr. Meredith- Rizatriptan 10mg as needed, propranolol 20mg (HAS NOT STARTED UNTIL SHE CONFIRMS WITH BEBO ARAGON) Allergies- meds helpmed- Fluticasone 50 mcg propanoate, Astelin IBS- meds helpMed-NOT ON Hyoscyamine 0.375mg Vitamin D def- On 50,000u once a week for 6 weeks. Obesity- does not have energy to do exercise Parker Aragon MD [address] [facility], [address], [place], [address], [place] 04/21/2024 16:22:30 05/19/2024 text/html Pt is here today for f/u [facility]ing to [facility] but would like to discuss different vaccines, advised to consult travel clinicAnxiety- feeling better with current medsMeds- Duloxetine 20mg daily Rheumatoid arthritis- sero negative, on 2 months infusions- Still has A LOT of bad days.Meds- Simponi - Every 2 months Hyperlipidemia- was 243, watching diet Erythema Nodosum- some times gets flare ups, prednisone helps GERD- meds helpMed- Tums prn, pantoprazole qd Fibromyalgia/Insom yo- back and legs, seen neurologistMed- Gabapentin 300mg 1 HS, Duloxetine Migraines - Thinks a lot of her headaches are from the Duloxetine. Has Doing physical therapy, still getting migraines but further apart. still not taking RX due to breast feeding prescribed by Dr. Meredith- Rizatriptan 10mg as needed, propranolol 20mg Allergies- meds helpmed- Fluticasone 50 mcg propanoate, Astelin IBS- meds helpMed-NOT ON Hyoscyamine 0.375mg Vitamin D def- On 50,000u once a week for 6 weeks. Obesity- does not have energy to do exercise, Has gained 3 lbs Parker Aragon MD [address] [facility] [address], [place], [address], [facility] [place] 05/19/2024 16:17:19 11/02/2024 text/html Pt is here today for f/u * scheduled to have a cholecystomy november 19, 2024 DR Israel is not fasting BCB Anxiety- feeling better with current medsMeds- Duloxetine 20mg daily Rheumatoid arthritis- sero negative, on 2 months infusions- Hyperlipidemia- was 243 now 208, watching diet Erythema Nodosum- some times gets flare ups, prednisone helps GERD- meds helpMed- Tums prn, pantoprazole qd Fibromyalgia/Insom yo- back and legs, seen neurologistMed- Gabapentin 300mg 1 HS, Duloxetine 20 MG qd Migraines -Meds- Rizatriptan 10mg as needed, was on propranolol 20mg Allergies- meds helpmed- Fluticasone, Astelin IBS- meds helpMed- was on Hyoscyamine 0.375mg Vitamin D def- On 50,000u once a week for 6 weeks. Obesity- does not have energy to do exercise, Has gained 3 lbs Parker Aragon MD [address], [facility] [address], [place], [address], [employer] 11/02/2024 16:38:45 OBGyn Episode No OBEpisode recorded.
--- OUTSIDE RECORDS SUMMARY | 2024-11-13 10:34 | XMS_ITS | Clinical Summary ---
Author Organization [facility] Address [address] [place] [address] Care Team Providers Care Unhairing Inspector Name Role Phone Unavailable Primary Care Provider Unavailabl e Source Comments [facility],non-owned Affiliates and Associated Physician Practices is amultiple site organization consisting of ambulatory clinics and hospital sitesin [place], [place], [place] and [place]. This disclosure is being madepursuant to the Care Everywhere program and may not contain all information available regarding this patient. Last updated 18.[facility] Allergies Active Allergy Reactions Criticality Noted Date Comments Caffeine Unknown 02/19/2022 Azathioprine Headache,Vomiting 02/21/2022 Sulfa Drugs Unknown 02/19/2022 Cetirizine Urticaria Medium 02/21/2022 Medications * Be aware that medications may not be up to date on this document. Alwaysverify current medications with the patient. Docosahexaenoi c Acid 200 MG Active Golimumab (SIMPONI ARIA IV) Active acetaminophen (Tylenol) 500 MG tablet Take 500 mg by mouth every 4 hours as needed Maximum allowable Acetaminophen amount = 4 Grams (4000 mg) / 24 hours. Active Active Problems No known active problems Family History Medical History Relation Name Comments High Cholesterol Father Hypertension Father Other - Gastrointestinal Mother Sjogren's Syndrome Mother Other - Syndrome half-sister Relation Name Status Comments Father Alive Mother Alive half-brother Alive half-sister Alive Social History Tobacco Use Types Packs/Day Years Used Date Smoking Tobacco: Never Smokeless Tobacco: Never Alcohol Use Standard Drinks/Week Comments Not Currently 0 (1 standard drink = 0.6 oz pur e alcohol) Comments No Sex and Gender Information Value Date Recorded Sex Assigned at Not on file Legal Sex Female 4:53 PM CDT Gender Identity Not on file Sexual Orientation Not on file Last Filed Vital Signs Vital Sign Reading Time Taken Comments Blood Pressure 128/77 02/21/2022 3:09 PM CDT Pulse 96 02/21/2022 2:37 PM CDT Temperature - - Respiratory Rate - - Oxygen Saturation - - Inhaled Oxygen Concentration - - Weight 90.6 kg (199 lb 12.8 oz) 02/21/2022 2:37 PM CDT Height 157.5 cm (5' 2 ) 02/21/2022 2:37 PM CDT Body Mass Index 36.54 02/21/2022 2:37 PM CDT Plan of Treatment Health Maintenance Due Date Last Done Comments HEPATITIS C SCREENING 12/12/2008 DTAP/TDAP/TD VACCINES (1 - Tdap) 2009 HEPATITIS B VACCINE (1 of 3 - 19+ 3-dose series) 2009 COVID-19 VACCINE (3 - 2023-2 5 season) 2024 07/24/2021, 09/10/2020 DEPRESSION SCREENING 07/08/2024 PAP SMEAR 01/19/2025 01/19/2022 INFLUENZA VACCINE (Season Ended) 2025 07/24/2021 ZOSTER VACCINE (1 of 2) 2040 HIV SCREENING Completed 02/14/2022 HIB VACCINE Aged Out No longer eligi ble based on patient's age to complete this topic HPV VACCINE Aged Out No longer eligi ble based on patient's age to complete this topic MENINGOCOCCAL (Group B) VACCINE SHARED DECISION-MAKING Aged Out No longer eligible based on patient's age to complete this topic MENINGOCOCCAL GROUPS A/C/Y/W VACCINE Aged Out No longer eligible b ased on patient's age to complete this topic PNEUMOCOCCAL VACCINE Aged Out No long er eligible based on patient's age to complete this topic Insurance SELF PAY NO INSURANCE Member Subscriber Plan / Payer (Ef fective for All Dates) Name:Disha Helms Member ID:Not on file Relation to Subscriber:Not on file Name:DISHA HELMS Subscriber ID:Not on file Address: [address] [place] [id number] Payer ID:Not on file Group ID:Not on file Type:Self Pay Address: [facility] * Guarantor: DISHA HELMS Account Type Relation to Patient Date of Phone Billing Address Personal/Family Spouse
--- OUTSIDE RECORDS SUMMARY | 2024-11-13 10:34 | XMS_ITS ---
Author Organization [facility] [employer] [place] ([address]) Address [address] [place] [address] Care Team Providers Care Reproduction Order Processor Name Role Phone Parker Aragon Primary Care Provider UnavailAubree Fontana Unavailable [phone] Romelia Simmons Unavailable [phone] Allergies Allergen (clinical drug ingredient) Drug/Non Drug Allergy documented on EMR Reaction Allergy Type Onset Date Status azathioprine azaTHIOprine Unknown Drug Allergy Active hydroxychloroquine Hydroxychloroquine other reaction Drug Allergy Active Substance with sulfonamide structure and antibacterial mechanism of action (substance) Sulfa Antibiotics hives Drug Allergy Active REASON FOR VISIT Headache follow-up, Vestibular migrainw, MOH, Myalgia, Insomnia Medications Medication SIG (Take, Route, Frequency, Duration) Notes Start Date End Date Status Rizatriptan Benzoate 10 MG 1 tablet Orally once, may repeat x1 after 2-4 hours for 30 days As needed for migraine (max 2 tabs/day) 04/08/2024 Active Nasal Washes N/A as directed intranasally 03/19/2024 Active Propranolol HCl 20 MG 1 tablet Orally at bedtime for 30 days 04/14/2024 Active Qulipta 60 MG 1 tablet Orally Once a day for 30 days 04/08/2024 Active Diclofenac Not-Takin g Vitamin D3 1.25 MG (77031 UT) 1 capsule Orally once a week for 60 days Take with food 02/25/2024 Active Simponi 100 MG/ML as directed Subcutaneous Active Cetirizine HCl 10 MG 1 tablet Orally Onc e a day for 30 days 03/19/2024 Active DULoxetine HCl 40 MG 1 capsule Orally On ce a day Active Pantoprazole Sodium 40 MG 1 tablet Orall y Once a day Active Ibuprofen 400 MG 1 tablet with food o r milk as needed Orally Three times a day Active Diclofenac Sodium 75 MG 1 tablet as need ed Orally Twice a day Active Benadryl Allergy 25 MG 1 tablet at bedti me as needed Orally Once a day Active Norethindrone 0.35 MG 1 tablet Orally On ce a day Active predniSONE 10 MG 4 tablets once a day for 2 days, 3 tablets once a day for 2 days, 2 tablets once a day for 2 days, 1 tablet once a day for 2 days Orally Once a day As needed prn Active Azelastine HCl 137 MCG/SPRAY 2 sprays in each nostril Nasally Twice a day for 30 days Active Tylenol 8 Hour 650 MG 2 tablets as neede d Orally every 8 hrs Active Flonase Allergy Relief 50 MCG/ACT 1 spray in each nostril Nasally Once a day Active Social History Tobacco Use: Social History Observation Description Date Details (start date - stop date) Never Smoker NA - NA Tobacco Control (Standard) Question Answer Notes Tobacco use: Nonsmoker Problems Problem Type SNOMED Code ICD Code Onset Dates Problem Status W/U Status Risk Notes Problem Migraine with aura, not intractable, without status migrainosus (G43.109) Active confirmed Problem Chronic migraine without aura, non-refractor y (disorder) ([id number]) Migraine without aura, not intractable, without status migrainosus (G43.009) Active confirmed Encounters Encounter Location Date Provider Diagnosis [facility] [address] [address] 05/07/2024 Romelianguyen Simmons Chronic migraine without aura, not intractable, without status migrainosus G43.709 ; Vertigo of central origin H81.4 ; Drug-induced headache, not elsewhere classified, not intractable G44.40 ; Myalgia, unspecified site M79.10 and Insomnia, unspecified G47.00 Assessments Encounter Date Diagnosis (ICD Code) Assessment Notes Treatment Notes Treatment Clinical Notes Section Notes 05/07/2024 Chronic migraine without aura, not intractable, without status migrainosus (ICD-10 - G43.709) She has chronic migraine and vestibular migraine, compounded by high stress, chronic insomnia, MOH, and cervical/ema capular myofascial pain 05/07/2024 Vertigo of central origin (ICD-10 - H81.4) She has chronic migraine and vestibular migraine, compounded by high stress, chronic insomnia, MOH, and cervical/ema capular myofascial pain 05/07/2024 Drug-induced headache, not elsewhere classified, not intractable (ICD-10 - G44.40) She has chronic migraine and vestibular migraine, compounded by high stress, chronic insomnia, MOH, and cervical/ema capular myofascial pain 05/07/2024 Myalgia, unspecified site (ICD-10 - M79.10) She has chronic migraine and vestibular migraine, compounded by high stress, chronic insomnia, MOH, and cervical/ema capular myofascial pain 05/07/2024 Insomnia, unspecified (ICD-10 - G47.00) She has chronic migraine and vestibular migraine, compounded by high stress, chronic insomnia, MOH, and cervical/ema capular myofascial pain Plan Of Treatment Next Appt Details Follow Up: , Reason: Evaluat ion and Management Progress Notes * Fernanda HELMSDOB:1990 ( 33 yo F)Acc No.[id number]:05/07/2024 Progress Notes Patient: Fernanda GOMES Provider: Momo Simmons APRN :1990 A ge:33 Y S ex:Female Date:05/07/2024 Address:[address] [place], [place] [id number] Pcp:Parker Aragon Subjective: * Chief Complaints: * 1 . Headache follow-up. 2. Vestibular migrainw. 3. MOH. 4. Myalgia. 5. Insomnia. * HPI: * Introduction: I had the pleasure of seeing Rebecca Helms, who presented for follow-up for chronic migraine, vestibular migraine, MOH, myalgia, and insomnia. * Initial History: INITIAL VISIT HISTORY: She has several complaints. She reports that [...] 25 Headache days/month and 7-14 Migraine days/month. Other symptoms: Intermittent paresthesias, primarily in left hand with activities, but also intermittent fleeting paresthesias in other extremities. Intermittent low back pain with radiation into right leg. * Previous Impression & Plan: Notes P revious Diagnoses: 1 . Chronic migraine without aura, not intractable, without status migrainosus - G43.709 (Primary) 2 . Vertigo of central origin - H81.4, vestibular migraine 3 . Drug-induced headache, not elsewhere classified, not intractable - G44.40 4 . Myalgia, unspecified site - M79.10, myofascial pain 5 . Insomnia, unspecified - G47.00 S he has chronic migraine and vestibular migraine, compounded by high stress, chronic insomnia, MOH, and cervical/parascapular myofascial pain. P revious Recommendations: 1 . Abortive: Rizatriptan 10 mg prn. Patient counseled r.e. potential side effects. Preventive: Start Qulipta 60 mg daily. Patient counseled r.e. potential side effects. 2 . Start Qulipta 60 mg daily. 3 . Educated patient regarding medication overuse headaches. Advised to avoid taking NSAIDs or acetaminophen > 15 days/month, triptans or DHE > 10 days/month, butalbital > 10 days/month to avoid rebound headaches. 4 . PT for myofascial work ([facility] in [place]). 5 . Discuss with PCP going back on qHS gabapentin which she was on previously and it helped. Discuss with PCP switching from duloxetine to SSRI.? * Interval History: Notes P harmacologic Treatment: C urrent abortive treatment: R izatriptan 10 mg, O TC analgesics P revious abortive treatment: N one C urrent preventive treatment: P ropranolol, Qulipta (denied by insurance), D uloxetine 40 mg (on for mood x 3 months, has not helped her headaches) P revious preventive treatment: N one M edication overuse: Present (takes Tylenol frequently, up to 3-4 days/week H eadache Frequency: I nitial/baseline headache/migraine days/month: 29/01- L ast visit headache/migraine days/month:29/01- C urrent headache/migraine days/month: / I nterval History: L ast visit was on 04/08/2024.. * ROS: C ONSTITUTIONAL: weight gain y [...] or hives. N EUROLOGY: Positive for R eviewed and except as mentioned above in the HPI is negative, Reviewed and except as mentioned above in the HPI is negative. H EMATOLOGY/LYMPH: Positive for P atient denies history of excessive bruising or bleeding diasthesis, Patient denies history of excessive bruising or bleeding diasthesis. ? M USCULOSKELETAL: joint stiffness y es. j oint pain y es. ? P SYCHOLOGY: Positive for R eviewed and except as discussed above in the HPI is otherwise negative, Reviewed and except as discussed above in the HPI is otherwise negative.? * Medical History: R A, Fibromyalga, Anxiety, Depression, IBS, GERD, Migraine with aura. * Family History: F ather: alive, Yes. [...] of carpet? 3 0 Do you have [id number]-[id number] carpeting? Y es What is the age of your carpeting? 3 0 What is the age of your mattress (years)? 1 Do you sleep with quilts or blankets or a duvet? Y es How many dogs? 2 T obacco Control (Standard) Tobacco use: N onsmoker * Medications: T aking Azelastine HCl 137 MCG/SPRAY Solution 2 sprays in each nostril Nasally Twice a day , Taking Flonase Allergy Relief 50 MCG/ACT Suspension 1 spray in each nostril Nasally Once a day , Taking Tylenol 8 Hour 650 MG Tablet Extended Release 2 tablets as needed Orally every 8 hrs , Taking Ibuprofen 400 MG Tablet 1 tablet with food or milk as needed Orally Three times a day , Taking Benadryl Allergy 25 MG Tablet 1 tablet at bedtime as needed Orally Once a day , Taking Diclofenac Sodium 75 MG Tablet Delayed Release 1 tablet as needed Orally Twice a day , Taking predniSONE 10 MG Tablet 4 tablets once a day for 2 days, 3 tablets once a day for 2 days, 2 tablets once a day for 2 days, 1 tablet once a day for 2 days Orally Once a day As needed, Notes to Pharmacist: prn, Taking Norethindrone 0.35 MG Tablet 1 tablet Orally Once a day , Taking Pantoprazole Sodium 40 MG Tablet Delayed Release 1 tablet Orally Once a day , Taking DULoxetine HCl 40 MG Capsule Delayed Release Sprinkle 1 capsule Orally Once a day , Taking Simponi 100 MG/ML Solution Auto-injector as directed Subcutaneous , Taking Vitamin D3 1.25 MG (19532 UT) Capsule 1 capsule Orally once a week Take with food, Taking Cetirizine HCl 10 MG Tablet 1 tablet Orally Once a day , Taking Nasal Washes N/A 1 quart of sterilized tap water or distilled water, 1 tsp NaCl, 1 pinch of baking soda as directed intranasally , Taking Rizatriptan Benzoate 10 MG Tablet 1 tablet Orally once, may repeat x1 after 2-4 hours As needed for migraine (max 2 tabs/day), Taking Qulipta 60 MG Tablet 1 tablet Orally Once a day , Taking Propranolol HCl 20 MG Tablet 1 tablet Orally at bedtime , Not-Taking/PRN Diclofenac * Allergies: S ulfa Antibiotics: hives, Hydroxychloroquine: other reaction, azaTHIOprine. Objective: * Vitals: * Examination: G eneral examination: General appearance: P leasant, well-developed, no distress.? HEENT: N o papilledema. [...] stress, chronic insomnia, MOH, and cervical/parascapular myofascial pain. Plan: * Treatment: * Procedure Codes: 9 6160 PT-FOCUSED HLTH RISK ASSMT, G8427 DOC MEDS VERIFIED W/PT OR RE, G2211 Complex e/m visit add on * Follow Up: R nani: Evaluation and Management * Billing Information: * Visit Code: 66614 Office Visit, Est Pt., Level 4. Modifiers: 25 77442 Office Visit, Est Pt., Level 3. Modifiers: 25 61059 Office Visit, Est Pt., Level 5. Modifiers: 25 * Procedure Codes: 23263 PT-FOCUSED HLTH RISK ASSMT. G8427 DOC MEDS VERIFIED W/PT OR RE. G2211 Complex e/m visit add on. * Electronic signature of GARRTE Masters on 11/13/2024 at 10:34 AM CDT Sign off status: Pending * Provider: Momo Simmons APRN Date: Generated for Buster barrera/Loree/eTransmitting on: 0 11/13/2024 10:34 AM CDT History and Physical Notes * HPI (History of Present Illness) Category Sub-Category Detail Notes Category Notes *Introduction I had the pleasure of seeing Fernanda Helms, who presented for follow-up for chronic migraine, vestibular migraine, MOH, myalgia, and insomnia *Initial History INITIAL VISIT HISTORY: She has several complaints. She reports that she has systemic autoimmune disease, reporting a history of RA, treated with Symponi infusions and NSAIDs. She has a history of fibromyalgia and lumbar DDD. She has a history of depression/anxiet y. She also has a history of migraine. Headache History: -Headache Onset: Adolescence-Heada long Description #1: Prodrome: Sometimes gets nausea first. Pain phase: Starts in the neck usually, but sometimes starts in frontal region, usually right unilateral but sometimes bilaterally, restricts activity, pain is pressure and sometimes throbbing, usually reaches peak intensity gradually, associated with photophobia/phono phobia and nausea, and more recently dizziness endorses [...] 25 Headache days/month and 7-14 Migraine days/month. Other symptoms: Intermittent paresthesias, primarily in left hand with activities, but also intermittent fleeting paresthesias in other extremities. Intermittent low back pain with radiation into right leg *Previous Impression & Plan Notes Previous Diagnoses:1. Chroni c migraine without aura, not intractable, without status migrainosus - G43.709 (Primary)2. Vertigo of central origin - H81.4, vestibular migraine3. Drug-induced headache, not elsewhere classified, not intractable - G44.404. Myalgia, unspecified site - M79.10, myofascial pain5. Insomnia, unspecified - G47.00She has chronic migraine and vestibular migraine, compounded by high stress, chronic insomnia, MOH, and cervical/parascapular myofascial pain.Previous Recommendations:1. Abortive: Rizatriptan 10 mg prn. Patient counseled r.e. potential side effects. Preventive: Start Qulipta 60 mg daily. Patient counseled r.e. potential side effects.2. Start Qulipta 60 mg daily. 3. Educated patient regarding medication overuse headaches. Advised to avoid taking NSAIDs or acetaminophen > 15 days/month, triptans or DHE > 10 days/month, butalbital > 10 days/month to avoid rebound headaches. 4. PT for myofascial work ([facility] in [place]). 5. Discuss with PCP going back on qHS gabapentin which she was on previously and it helped. Discuss with PCP switching from duloxetine to SSRI *Interval History Notes Pharmacologic Treatment:Curr ent abortive treatment: Rizatriptan 10 mg, OTC analgesicsPrevious abortive treatment: NoneCurrent preventive treatment: Propranolol, Qulipta (denied by insurance), Duloxetine 40 mg (on for mood x 3 months, has not helped her headaches)Previous preventive treatment: NoneMedication overuse: Present (takes Tylenol frequently, up to 3-4 days/weekHeadache Frequency:Initial/baseline headache/migraine days/month: 29/01-Last visit headache/migraine days/month: 29/01-urrent headache/migraine days/month: /Interval History:Last visit was on 04/08/2024. Examination Category Sub-Category Detail Notes Category Not [...]
--- OUTSIDE RECORDS SUMMARY | 2024-11-13 10:34 | XMS_ITS ---
Author Organization [facility] [employer] ([address]) Address [address] [place] [address] Care Team Providers Care Marketing Summer Intern Name Role Phone Parker Aragon Primary Care Provider Aubree Gimenez Unavailable [phone] Dr. Gómez Armstrong Unavailable [phone] REASON FOR VISIT Qulipta PA Denied/Prescribed Propranolol Medications Medication SIG (Take, Route, Fr equency, Duration) Notes Start Date End Date Status Propranolol HCl 20 MG 1 tablet Orally at bedtime for 30 days 04/14/2024 Active Encounters Encounter Location Date Provider Diagnosis [address] [address] 04/09/2024 Gómez Armstrong Plan Of Treatment Medication Medication Name Sig Start Date Stop Date Notes Propranolol HCl 20 MG 1 tablet Orally at bedtime for 30 days 04/14/2024 Progress Notes * Fernanda CHONGDOB:1990 ( 33 yo F)Acc No.[id number]:04/09/2024 Patient: Jenna ALEXEI Fernanda :1990 A ge:33 Y S ex:Female Address:[address] [place], [address] * Refills Start Propranolol HCl Tablet, 20 MG, Orally, 30, 1 tablet, at bedtime, 30 days, Refills=2 * true * Date: Generated for Printi ng/Faxing/eTransmitting on: 0 11/13/2024 10:33 AM CDT
[2024-11-13 11:14] LABS: Basophils Absolute Auto 0.1 K/mm3 (0.0-0.1); Basophils Percent Auto 0.6 % (0.2-1.2); Eosinophils Absolute Auto 0.2 K/mm3 (0-0.3); Eosinophils Percent Auto 3.1 % (0-4.4); Hematocrit 42.5 % (37.0-47.0); Hemoglobin 14.1 g/dL (12.0-15.0); Immature Granulocyte Absolute 0.04 K/mm3 (0.00-0.031); Immature Granulocyte Percent A 0.5 % (0-0.5); Lymphocytes Absolute Auto 2.56 K/mm3 (0.9-3.2); Mean Corpuscular HGB Conc 33.2 g/dl (32-36); Mean Corpuscular Volume 87.3 fl (80-100); Mean Platelet Volume 10.5 fl (7.4-10.4); Monocytes Absolute Auto 0.6 K/mm3 (0.1-0.6); Monocytes Percent Auto 7.2 % (2.6-8.5); Neutrophils Absolute Auto 4.3 K/mm3 (1.3-6.7); Neutrophils Percent Auto 55.6 % (45.5-73.1); Platelet Count Result 277 k/mm3 (150-375); Red Blood Count 4.87 M/mm3 (4.2-5.4); Red Cell Distribution Width 13.1 % (11.5-14.5); White Blood Count 7.8 K/mm3 (4.5-10.0)
[2024-11-13 11:30] LABS: Alanine Aminotransferase 40 U/L (6-35); Albumin Level 4.8 g/dL (3.5-5.1); Alkaline Phosphatase 62 U/L (38-126); Anion Gap 10 mmol/L (4-12); Aspartate Amino Transferase 40 U/L (14-36); Bilirubin,Total 0.7 mg/dL (0.2-1.3); Blood Urea Nitrogen 9 mg/dL (7-17); Calcium 9.1 mg/dL (8.4-10.2); Carbon Dioxide 26 mmol/L (22-30); Chloride 104 mmol/L (98-107); Cholesterol 275 mg/dL (0-200); Estimated Glomerular Filt Rate > 60; Glucose 84 mg/dL (65-110); HDL Direct 47 mg/dL; Potassium 4.2 mmol/L (3.4-5.0); Sodium 140 mmol/L (137-145); Triglycerides 260 mg/dL (<150)
[2024-11-13 11:41] LABS: LDL Cholesterol Direct 163 mg/dL
== END 2024-11-13 10:27 | disposition home or self-care (01) ==
PROVIDERS: PCP Internal Medicine; Visit Provider Surgery
DX: E78.5 Hyperlipidemia, unspecified (principal); K80.10 Calculus of gallbladder with chronic cholecystitis without obstruction; M06.9 Rheumatoid arthritis, unspecified
CPT/HCPCS: 36415; 80053; 80061; 85025; 86850; 86900; 86901

== ENCOUNTER 2024-11-19 02:44 | Day surgery (SDC) | payer BC, SELFPAY ==
[2024-11-11 08:38] VITALS: BMI 40.3
--- NOTE | 2024-11-11 08:50 | PC.NURSE ---
Report to the Outpatient Waiting Room, entrance under the green pavilion located off [facility], at time _1000_ on date _[id number]_. Planned Procedure Time: _1200_. Time changes happen often and if your time is changed the preop area will call you the afternoon before. - You and your visitor will be asked to self-screen and do not enter if you have any COVID symptoms. Please call surgeon if you need to reschedule. - A mask is optional within the hospital at this time. Patients may have clear liquids (water, carbonated beverages, clear teas, apple juice) until 3 hours prior to surgery with a maximum of 20 ounces. - No food from midnight until time of surgery and no smoking, or chewing tobacco (or any form of nicotine). No chewing gum, candy or mints. Take only the following medications with a SIP of water on the morning of surgery: __Duloxetine and nasal sprays.___ DO NOT STOP ANY OF YOUR OTHER PRESCRIPTION MEDICATIONS PRIOR TO SURGERY EXCEPT THE FOLLOWING Hold all vitamins and supplements for 3 days per anesthesiologist. Medications to discontinue per physician Date to take last dose Please no make-up, nail jamaican, hairspray, perfume, deodorant, or body powder the day of surgery. No jewelry (including any body piercings) or valuables the day of surgery, leave them at home. Please take a shower or bath the night before, or the morning of, surgery with an antibacterial soap. Wear comfortable, loose fitting clothing. - Jewelry must be removed prior to entering the operating room. Rings and piercings that are not removed may be cut off. - The hospital will not accept responsibility for valuables. - Please leave all valuables, including medications, at home the day of surgery. If you are going home after surgery, a licensed charter bus driver must drive you home. - NO public transportation without another adult if you receive anesthesia. - We recommend that an adult stay with you for 24 hours following discharge. - We also recommend that you do not drive, make important decision, drink alcoholic beverages, or take any drugs that were not prescribed by your health care provider for at least 24 hours after your discharge time. Follow any additional instructions given to you from your surgeon. Telephone instructions given to __Taylor__and asked if any additional questions and then verbalized understanding. Patient advised to call surgeon office or pre surgery nurse liaison [phone] if any additional questions.
[2024-11-19] VITALS (9 sets, daily range): BP systolic 107–143; BP diastolic 55–72; PULSE 83–102; RESP 12–16; TEMP 36.1–36.7; O2SAT 97–100
--- OUTSIDE RECORDS SUMMARY | 2024-11-19 02:47 | XMS_ITS | Data Portability ---
Author Organization [facility] Address [address] [place] [address] Assessment No assessment recorded. Plan of Treatment Reminders Order Date Submit Date Provider Last Modified By Organization Details Last Modified Time Details Appointments None recorded. Lab urinalysi s, dipstick 2017 018 trice In-Office Order, Internal Use Only DO Not Attach Compendium DO Not Attach Compendium, Do Not Delete/merge, [id number] 8 12:44:14 test, urine 2017 018 trice In-Office Order, Internal Use Only DO Not Attach Compendium DO Not Attach Compendium, Do Not Delete/merge, [id number] 8 12:44:14 pap, IG + HPV, cervical - please use Z11.51 in addition to code above for HPV testing. 2017 018 [facility], [address], [place], [address], 8 20:08:57 bacterial vaginosis + vaginitis panel, vaginal - Z11.3, Z20.0 2017 018 [facility], [address] [place] [address], [address], [place], [address], 8 11:36:02 HSV (1+2) DNA, qual, PCR, unspecifi ed specimen - Z11.3, Z20.2 2017 018 [facility], [address], [address], [place], [address], 8 11:36:02 culture, vaginal/r ectal, streptoco ccus group B - Z11.3, Z20.2 2017 018 [facility], [address], [address], [place], [address], 8 11:36:03 Referral None recorded. Procedures None recorded. Surgeries None recorded. Imaging None recorded. Medication Orders multivita min tablet 2017 018 [facility] [id number], [address], 8 12:44:17 Calcium with Vitamin D 600 mg-10 mcg (400 unit) tablet 2017 018 [facility] [id number], [address], 8 12:44:17 Lo Loestrin Fe 1 mg-10 mcg (24)/10 mcg (2) tablet 2017 018 [facility] [address], [address], 8 13:04:30 Patient TargetsNo targets recorded. Patient Instructions Encounter Date Encounter Id Patient Instructions Last Modified By Organization Details Last Modified Time 06/24/2018 [id number] lupus: care instructions mwasserman Not available 06/24/2018 12:44:56 Reason for Referral None Reported. Results Created Date Observation Date Name Description Value Unit Range Abnormal Flag Note LastModifiedBy Organization Detail LastModifiedTime 06/24/20 18 06/24/2018 pregn hunter test, urine HCG negati ve Not Available In-Office Order Internal Use Only DO Not Attach Compendium DO Not Attach Compendium, Do Not Delete/merge, [id number] 06/24/2018 12:39:55 06/24/2006/26/2018 pap, IG + HPV, cervi breanna diagnosis: Calvin hayes NEGAT CARLOS FOR INTRA EPITH ELIAL LESIO N AND MALIG MELLY . CELLU KJ OKEEFE ES ASSOC IATED WITH ATROP HY ARE PRESE NT. Not Available [facility] ([facility]) [address] [facility], [place], [address], 06/26/2018 20:08:57 06/24/20 18 06/26/2018 pap, IG + HPV, cervi breanna specimen adequacy: Calvin t Satis facto ry for evalu ation . Endoc ervic al compo nent may not be disti nguis hed in cases of atrop hy. Not Available [facility] ([facility]) [address] [place], [address], 06/26/2018 20:08:57 06/24/20 18 06/26/2018 pap, IG + HPV, cervi breanna clinician provided ICD10: Calvin hayes Z01.4 19 Z11.5 1 Not Available [facility] ([facility]) [address] [place], [address], 06/26/2018 20:08:57 06/24/20 18 06/26/2018 pap, IG + HPV, cervi breanna performed by: Calvin raygoza, Cytot génesis robison t (ASCP ) Not Available [facility] ([facility]) [address] [place], [address], 06/26/2018 20:08:57 06/24/20 18 06/26/2018 pap, IG + HPV, cervi breanna . . Not Available [facility] ([facility]) [address] [place], [address], 06/26/2018 20:08:57 06/24/20 18 06/26/2018 pap, IG [...] ts do occur . Not Available [facility] ([facility]) [address] [place], [address], 06/26/2018 20:08:57 06/24/20 18 06/26/2018 pap, IG + HPV, cervi breanna test methodology: TNP The Thin Prep( R) Image r was unabl e to read this speci men. There fore a manua l revie w was perfo rmed. Not Available [facility] ([facility]) [address] [place], [address], 06/26/2018 20:08:57 06/24/20 18 06/26/2018 pap, IG + HPV, cervi breanna HPV aptima Negati ve negati ve This test detec ts fourt een high- risk HPV types (16/1 8/31/ 33/35 /39/4 5/ 51/52 /56/5 8/59/ 66/68 ) witho ut diffe renti ation . Not Available [facility] ([facility]) [address] [place], [address], 06/26/2018 20:08:57 06/24/20 18 06/27/2018 bacte rial vagin osis + vagin itis panel , vagin al trich vag by MORGAN Negati ve negati ve Not Available [facility] ([facility]) [address] [place], [address], 06/30/2018 11:36:02 06/24/20 18 06/27/2018 bacte rial vagin osis + vagin itis panel , vagin al chlamydia trachomatis, MORGAN Negati ve negati ve Not Available [facility] ([facility]) [address] [place], [address], 06/30/2018 11:36:02 06/24/20 18 06/27/2018 bacte rial vagin osis + vagin itis panel , vagin al neisseria gonorrhoeae, MORGAN Negati ve negati ve Not Available [facility] ([facility]) [address] [place], [address], 06/30/2018 11:36:02 06/24/20 18 06/29/2018 bacte rial vagin osis + vagin itis panel , vagin al atopobium vaginae Low - 0 score Not Available [facility] ([facility]) [address] [place], [address], 06/30/2018 11:36:02 06/24/20 18 06/29/2018 bacte rial vagin osis + vagin itis panel , vagin al bvab 2 Low - 0 score Not Available [facility] ([facility]) [address] [place], [address], 06/30/2018 11:36:02 06/24/20 18 06/29/2018 bacte rial [...] is not neces dennys. Not Available [facility] ([facility]) [address] [place], [address], 06/30/2018 11:36:02 06/24/20 18 06/29/2018 bacte rial vagin osis + vagin itis panel , vagin al kike albicans, MORGAN Negati ve negati ve Not Available [facility] ([facility]) [address] [place], [address], 06/30/2018 11:36:02 06/24/20 18 06/29/2018 bacte rial [...] is not neces dennys. Not Available [facility] ([facility]) [address] [facility], [place], [address], 06/30/2018 11:36:02 06/24/20 18 06/30/2018 HSV (1+2) DNA, qual, PCR, unspe cifie d speci men hsv 1 MORGAN Negati ve negati ve Not Available [facility] ([facility]) [address] [place], [address], 06/30/2018 11:36:02 06/24/20 18 06/30/2018 HSV (1+2) DNA, qual, PCR, unspe cifie d speci men hsv 2 MORGAN Negati ve negati ve Not Available [facility] ([facility]) [address] [place], [address], 06/30/2018 11:36:02 06/24/20 18 06/26/2018 cultu re, [...] n is noted . Not Available [facility] ([facility]) [address] [facility], [place], [address], 06/30/2018 11:36:03 06/24/20 18 06/24/2018 urina lysis , dipst ick Leukocytes Negati ve Not Available In-Office Order Internal Use Only DO Not Attach Compendium DO Not Attach Compendium, Do Not Delete/merge, [id number] 06/24/2018 12:39:42 06/24/20 18 06/24/2018 urina lysis , dipst ick Nitrite negati ve Not Available In-Office Order Internal Use Only DO Not Attach Compendium DO Not Attach Compendium, Do Not Delete/merge, [id number] 06/24/2018 12:39:42 06/24/20 18 06/24/2018 urina lysis , dipst ick Urobilinogen .2 Not Available In-Of fice Order Internal Use Only DO Not Attach Compendium DO Not Attach Compendium, Do Not Delete/merge, [id number] 06/24/2018 12:39:42 06/24/20 18 06/24/2018 urina lysis , dipst ick Protein Negati ve Not Available In-Office Order Internal Use Only DO Not Attach Compendium DO Not Attach Compendium, Do Not Delete/merge, [id number] 06/24/2018 12:39:42 06/24/20 18 06/24/2018 urina lysis , dipst ick pH 6.0 Not Available In-Office Order Internal Use Only DO Not Attach Compendium DO Not Attach Compendium, Do Not Delete/merge, [id number] 06/24/2018 12:39:42 06/24/20 18 06/24/2018 urina lysis , dipst ick Blood Modera te Not Available In-Office Order Internal Use Only DO Not Attach Compendium DO Not Attach Compendium, Do Not Delete/merge, [id number] 06/24/2018 12:39:42 06/24/20 18 06/24/2018 urina lysis , dipst ick Specific Attalla 1.025 Not Available In-Off ice Order Internal Use Only DO Not Attach Compendium DO Not Attach Compendium, Do Not Delete/merge, [id number] 06/24/2018 12:39:42 06/24/20 18 06/24/2018 urina lysis , dipst ick Ketone Small Not Available In-Office Order Internal Use Only DO Not Attach Compendium DO Not Attach Compendium, Do Not Delete/merge, [id number] 06/24/2018 12:39:42 06/24/20 18 06/24/2018 urina lysis , dipst ick Bilirubin Negati ve Not Available In-Office Order Internal Use Only DO Not Attach Compendium DO Not Attach Compendium, Do Not Delete/merge, [id number] 06/24/2018 12:39:42 06/24/20 18 06/24/2018 urina lysis , dipst ick Glucose Negati ve Not Available In-Office Order Internal Use Only DO Not Attach Compendium DO Not Attach Compendium, Do Not Delete/merge, [id number] 06/24/2018 12:39:42 Result Notes None recorded. 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 Medical Equipment None Reported. Allergies Allergen ID Allergen Name Allergen Category Reaction Reaction Severity Criticality Documentation Date Start Date Code Code System Note Provider Name and Address Organization Details Recorded Time 706972 Substance with sulfonami de structure and antibacte rial mechanism of action (substanc e) medicatio n Not available Not available Not available 06/24/2018 59353 8003 SNOMED TASHA [place], [place] Piedad KOCH 8 12:28:39 571432 azathiopr ine medicatio n Not available Not [...] Updated DateTime 06/24/2018 157.48 cm 24.5 kg/m2 08219.38 g 110 mm[Hg] 60 mm[Hg] Delfina White MA [place] - [facility] 8 12:28:23 Social History Question Answer Notes LastModified by Organizat ion Details LastModified Time Tobacco Smoking Status Never Smoker Delfina White MA null, [place] - [facility] 06/24/2018 12:35:06 Do You Have An Advance Directive? No Information not available 06/24/2018 Is Blood Transfusion Acceptable In An Emergency? Yes Information not available 06/24/2018 What Is Your Level Of Caffeine Consumption? Occasional Information not available 06/24/2018 How Much Tobacco Do You Chew? None Information not available 06/24/2018 Which Illicit Or Recreational Drugs Have You Used? Denies Information not available 06/24/2018 Education 12 Graduated Information no t available 06/24/2018 What Was The Date Of [...] ion Details LastModified Time What is your level of alcohol consumption? Occasional Information not available 06/24/2018 Are you currently employed? 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 Moderate Information [...] SNOMED-CT Code Diagnosis ICD10 Code Diagnosis Note [id number] Guero Oro MD [facility] ([employer]) [address] [place] [phone] 06/24/2018 11:57:45 06/24/2018 16:56:19 Gynecologic examination 65723247 Z01.419 Exposure t o sexually transmissible disorder 192472156 Z20.2 Systemic l upus erythematosus 72046773 M32.9 Family julia nning surveillance 693744299 Z30.09 Health Concerns Section Related Observation LastModified by Organization Detai ls LastModified Time None Recorded Concern Status LastModified by Organization Details LastModified Time None Recorded Advance Directives Directive N: Payers Encounter Date Sequence Insurance Name Policy Number Policy Birch Covered Member ID Birch Member ID Guarantor Name 06/24/2018 1 [facility] [id number] Fernanda Chong [id number] Fernanda Chong Notes Date Note Type Note [...] concerns or complaints for today. Guero Oro [facility], [place] - [facility] 06/24/2018 18:29:38 OBGyn Episode No OBEpisode recorded.
--- OUTSIDE RECORDS SUMMARY | 2024-11-19 02:47 | XMS_ITS | Patient Health Record ---
Author Organization [facility] [place] ([address]) Address [address] [address] Care Team Providers Care Clinical Asst Name Role Phone Parker Aragon Primary Care Provider UnavailAubree Fontana Unavailable [phone] Dr. Gómez Armstrong Unavailable [phone] Romelia Simmons Unavailable [phone] Allergies Allergen (clinical drug ingredient) Drug/Non Drug Allergy documented on EMR Reaction Allergy Type Onset Date Status azathioprine azaTHIOprine Unknown Drug Allergy Active hydroxychloroquine Hydroxychloroquine other reaction Drug Allergy Active Substance with sulfonamide structure and antibacterial mechanism of action (substance) Sulfa Antibiotics hives Drug Allergy Active Results Component Value Reference Range Notes -Pneumococcal Ab (23 Serotyp e) Reviewed date:02/25/2024 08:49:24 AM Interpretation:Abnormal Performing Lab:[facility], [address] [place] [id number], Phone - [phone], Director - PhDBCNeil Notes/Report: Pneumo Ab Type 1* 2.1 >1.3 [...] developed and its performance characteristics determined by [employer]. It has not been cleared or approved by the U.S. Food and Drug Administration. FLAG Interpretation: A = Abnormal, H = High, L = Low -Respiratory Allergens w/Tot al IgE Area 8 Reviewed date:02/25/2024 12:16:55 PM Interpretation:Abnormal Performing Lab:[facility], [address] [place] [id number], Phone - [phone], Director - Sarina Notes/Report: Class Description Levels of Specific IgE Class Description of Class ----- < 0.10 0 Negative 0.10 - 0.31 0/I Equivocal/Low 0.32 - 0.55 I Low 0.56 - 1.40 II Moderate 1.41 - 3.90 III High 3.91 - 19.00 IV Very High 19.01 - 100.00 V Very High >100.00 Very High Immunoglobulin E, Total <2 6-495 IU/mL J772-MfK D pteronyssinus <0.10 Class 0 kU/L T747-GtV D farinae <0.10 Class 0 kU/L U476-AkA Cat Dander <0.10 Class 0 kU/L W981-AbA Dog Dander <0.10 Class 0 kU/L B873-DdB Mouse Urine <0.10 Class 0 kU/L R835-AtC Bermuda Grass <0.10 Class 0 kU/L Z709-HaH Michele Grass <0.10 Class 0 kU/L H698-YlT Cockroach, South Korean <0.10 Class 0 kU/L N845-BhU Penicillium chrysogen <0.10 Class 0 kU /L Q062-WcZ Cladosporium herbarum <0.10 Class 0 kU /L M659-HlE Aspergillus fumigatus <0.10 Class 0 kU /L G788-YgZ Alternaria alternata <0.10 Class 0 kU/ L U964-OiD Maple/[place]uda <0.10 Class 0 kU/L W717-FfF Morrill, Mountain <0.10 Class 0 kU/L C694-XzI Cavalier, White <0.10 Class 0 kU/L G902-ZrP Elm, South Sudanese <0.10 Class 0 kU/L J995-YqE Maple [place] Twining <0.10 Class 0 kU/L M750-PaB Bradfordwoods <0.10 Class 0 kU/L Q039-BlG Sheldon, White <0.10 Class 0 kU/L R496-GgY Hunt <0.10 Class 0 kU/L K095-YyW Pecan, [place] <0.10 Class 0 kU/L L114-IjB White Mazama <0.10 Class 0 kU/L G358-CjO Ragweed, Short <0.10 Class 0 kU/L Q964-FdE Thistle, Zimbabwean <0.10 Class 0 kU/L K357-SyU Pigweed, Common <0.10 Class 0 kU/L G518-EuQ Rough Marshelder <0.10 Class 0 kU/L -Tetanus/Diphtheria Ab Reviewed date:02/21/2024 10:50:27 AM Interpretation:Normal Performing Lab:[address] [id number], Phone - [phone], Director - [facility] Notes/Report: Tetanus Antitoxoid IgG Ab 1.53 <0.10 IU/mL Interpretation: Non-Protective <0.10 Protective >=0.10 Results for this test are for research purposes only by the assay's bread wrapper operator. The performance characteristics of this product have not been established. Results should not be used as a diagnostic procedure without confirmation of the diagnosis by another medically established diagnostic product or procedure. Diphtheria Antitoxoid Ab 0.43 <0.10 IU/mL Interpretation: Non-Protective <0.10 Protective >=0.10 . For research use only. -Haemophilus influenzae B Ig G Reviewed date:02/22/2024 01:34:08 PM Interpretation:Normal Performing Lab:[address] [id number], Phone - [phone], Director - [facility] Notes/Report: Haemophilus influenzae B IgG 0.86 NOTE: An anti-Hib level of 0.15 ug/mL is generally accepted as the minimum level for protection. Optimal protection post-vaccination requires a level greater than 1.00 ug/mL. -Vitamin D, 25-Hydroxy Reviewed date:02/25/2024 08:49:15 AM Interpretation:Abnormal Performing Lab:[facility], [address] [place] [id number], Phone - [phone], Director - [facility] Notes/Report: Vitamin D, 25-Hydroxy 12.4 30.0-100.0 ng/mL Vitamin D deficiency has been defined by the [place] of Medicine and an Endocrine Society practice guideline as a level of serum 25-OH vitamin D less than 20 ng/mL (1,2). The Endocrine Society went on to further define vitamin D insufficiency as a level between 21 and 29 ng/mL (2). 1. IOM ([place] of Medicine). 2010. Dietary reference intakes for calcium and D. [place]: The National Academies Press. 2. Francie COLEMAN, Luis Eduardo DANIELS, Ely ARGUELLO, et al. Evaluation, treatment, and prevention of vitamin D deficiency: an Endocrine Society clinical practice guideline. JCEM. 2010; 96(7):1911-30. -Immunoglobulins A/G/M, Qn, Ser Reviewed date:02/19/2024 02:46:45 PM Interpretation:Normal Performing Lab:[facility], [address] [place] [address], [place], [place] [id number], Phone - [phone], Director - N[facility] Notes/Report: Immunoglobulin G, Qn, Serum 6390 326-5180 mg/d L Immunoglobulin A, Qn, Serum 159 87-352 mg/dL Immunoglobulin M, Qn, Serum 139 26-217 mg/dL Reason For Referral Reason Evaluate and treat PT for myofascial work Diagnosis 1 Myalgia, unspecified site (M79.10) Referral Organization [facility] Referring Provider First Name Gómez Referring Provider Last Name Nathaniel Referring Provider Speciality Neurology Referred Provider [facility], [place] Referral Priority Routine Medications Medication SIG (Take, [...] 30 days Active Vitamin D3 1.25 MG (70919 UT) 1 capsule Orally once a week [...] Status Risk Notes Problem Vitamin D deficiency (26398058) Vitamin D deficiency, unspecified (E55.9) Active confirmed Problem Chronic migraine without aura, non-refractory (disorder) (670179027188232) Migraine without aura, not intractable, without status migrainosus (G43.009) Active confirmed Problem Migraine with aura (9139124) Migraine with aura, not intractable, without status migrainosus (G43.109) Active confirmed Problem Chronic migraine without aura, non-intractable (933790397501180) Chronic migraine without aura, not intractable, without status migrainosus (G43.709) Active confirmed Problem Drug induced headache (214356993182219) Drug-induced headache, not elsewhere classified, not intractable (G44.40) Active confirmed Problem Insomnia (243009277) Insomnia, unspecified (G47.00) Active confirmed Problem Chronic allergic conjunctivitis (78899625) Other chronic allergic conjunctivitis (H10.45) Active confirmed Problem Allergic rhinitis caused by pollen (disorder) (05660884) Allergic rhinitis due to pollen (J30.1) Active confirmed Problem Allergic rhinitis (59651584) Other allergic rhinitis (J30.89) Active confirmed Problem Chronic sinusitis (52772634) Chronic sinusitis, unspecified (J32.9) Active confirmed Problem Latex allergy status (Z91.040) Active confirmed Problem Muscle pain (10278899) Myalgia, unspecified site (M79.10) Active confirmed Problem Vertigo of central origin (19494845) 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) Active confirmed Vital Signs Respiratory Rate 16 /min 02/06/2024 Oximetry 96 % 04/08/2024 Blood pressure diastolic 83 mm Hg 04/08/2024 Height 62 in 04/08/2024 Blood pressure systolic 140 mm Hg 04/08/2024 Weight 203.8 lbs 04/08/2024 BMI 37.27 kg/m2 04/08/2024 Encounters Encounter Location Date Provider Diagnosis [facility] [address] [place], [place] [phone] 02/06/2024 Aubree Ram Allergic rhinitis du e [...] blood-pressure reading, without diagnosis of hypertension R03.0 [facility] [address] [place] [phone] 03/19/2024 Aubree Ram Allergic rhinitis du e [...] blood-pressure reading, without diagnosis of hypertension R03.0 [facility] [address] [place] [phone] 04/08/2024 Gómez Armstrong Chronic migraine without aura, not intractable, without status migrainosus G43.709 ; Vertigo of central origin H81.4 ; Drug-induced headache, not elsewhere classified, not intractable G44.40 ; Myalgia, unspecified site M79.10 and Insomnia, unspecified G47.00 [facility] [place] [address] [place] [address] 02/20/2024 Aubree Ram Vitamin D deficiency , unspecified E55.9 [facility] - [place] [address] [place] [address] 04/09/2024 Gómez Armstrong Assessments Encounter Date Diagnosis [...] sandwich. She was given IV Benadryl at pediatric psychiatrist office. She does not have pictures of [...] PT for myofascial work ([facility] in [place]). She has chronic migraine and vestibular migraine, [...] sandwich. She was given IV Benadryl at pediatric psychiatrist office. She does not have pictures of [...] low vitamin d level (12.4). - Recommend [id number] with repeat titers in 4-6 weeks. 03/19/2024 [...] Insured Coverage Start Date Coverage End Date [facility] [address] [place] [address] [id number] Fernanda Chong Self - patient is the insured 3 Medical (General) History Medical History History ICD Code RA Fibromyalga Anxiety Depression IBS GERD Migraine with aura
--- OUTSIDE RECORDS SUMMARY | 2024-11-19 02:47 | XMS_ITS ---
Author Organization [facility] ([phone]) Address [address] [place] [id number] Care Team Providers Care Chro Name Role Phone Parker Aragon Primary Care Provider Aubree Gimenez Unavailable [phone] Dr. 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-Neuro, Headache Medications Medication SIG (Take, Route, Frequency, [...] 30 days Active Vitamin D3 1.25 MG (06329 UT) 1 capsule Orally once a week [...] Problem Chronic migraine without aura, non-intractab le (305738518273 100) Chronic migraine without aura, not intractable, without status migrainosus (G43.709) Active confirmed Problem Drug induced headache (552048190608 104) Drug-induced headache, not elsewhere classified, not intractable (G44.40) Active confirmed Problem Muscle pain (44266660) Myalgia, unspecified site (M79.10) Active confirmed Problem Vertigo of central origin (17359121) 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) Active confirmed Problem Insomnia (108438198) Insomnia, unspecified (G47.00) Active confirmed Vital Signs Blood pressure systolic 140 mm Hg 04/08/20 24 Blood pressure diastolic 83 mm Hg 024 Height 62 in 04/08/2024 Weight 203.8 lbs 04/08/2024 BMI 37.27 kg/m2 04/08/2024 Oximetry 96 % 04/08/2024 Encounters Encounter Location Date Provider Diagnosis [facility] [address] [place] [address] 04/08/2024 Gómez Beachyder Chronic migraine without aura, [...] PT for myofascial work ([facility] in [place]). She has chronic migraine and vestibular migraine, [...] for myofasc ial work ([facility] in [place]). Insomnia, unspecified Discuss with PCP zohra hightower back on qHS gabapentin which she was on previously and it helped. Discuss with PCP switching from duloxetine to SSRI. 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 * ROS: C ONSTITUTIONAL: weight gain y es,maybe. f atigue y es. E NT: sinus pain yes. R ESPIRATORY: Positive for P atient denies shortness of breath or wheezing, Patient denies shortness of breath or wheezing. O PHTHALMOLOGY: sensitivity to light y es. d iminished vision y es. E NDOCRINOLOGY: fatigue y es. s leep disturbance yes. C ARDIOLOGY: dizziness y es. G ASTROENTEROLOGY: nausea y es. U ROLOGY: Positive for P atient denies urinary incontinence or urinary dysfunction, Patient denies urinary incontinence or urinary dysfunction. D ERMATOLOGY: Positive for P atient denies rash or hives, Patient denies rash or hives. N EUROLOGY: Positive for R evishwed and except as mentioned above in the HPI is negative, Reviewed and except as mentioned above in the HPI is negative. H EMATOLOGY/LYMPH: Positive for P atient denies history of excessive bruising or bleeding diasthesis, Patient denies history of excessive bruising or bleeding diasthesis. M USCULOSKELETAL: joint stiffness y es. j oint pain y es. P SYCHOLOGY: Positive for R tejinderd and except as discussed above in the HPI is otherwise negative, Reviewed and except as discussed above in the HPI is otherwise negative. * Medical History: * Surgical History: N [...] Do you regularly consume products with artificial coloring? Yes Have you ever noticed worsening of your [...] of carpet? 3 0 Do you have [id number] carpeting? Y es What is the age [...] as directed Subcutaneous Vitamin D3 1.25 MG (96749 UT) Capsule 1 capsule Orally once a [...] directed Subcutaneous Taking Vitamin D3 1.25 MG (45756 UT) Capsule 1 capsule Orally once a [...] examination: General appearance: Fuad hernandez, well-developed, no distress. HEENT: N o papilledema. No tenderness to [...] points. Extremities: N o peripheral e janeth. Assessment: * Assessment: 1. C hronic migraine [...] Notes:PT for myofascial work ([facility] in [place]). Referral To:[place] [facility] Reason:Evaluate and treat PT for [...] Management) * Billing Information: * Visit Code: 81215 Office Visit, New Pt., Level 4. Modifiers: 25 * Procedure Codes: G8427 DOC MEDS VERIFIED W/PT OR RE. * Sign off status: Completed true * Provider: Daniella Armstrong MD Date: Generated for Buster barrera/Loree/eTransmitting on: 0 11/19/2024 02:46 AM CDT History and Physical Notes * HPI (History of Present Illness) Category Sub-Category Detail Notes Category Not es *Introduction HPI: Fernanda Chong, who presented for evaluation of [...]
--- OUTSIDE RECORDS SUMMARY | 2024-11-19 02:47 | XMS_ITS | Data Portability ---
Author Organization [facility] Address [address] [place] [address] Care Team Providers Care [employer] Name Role Phone DWAYNE ARAGON Primary Care Provider [phone] Assessment Encounter Date Assessment Date Assessment LastModified by Organization Details LastModified Time 09/18/2022 09/18/2022 Normal exam May resume normal activities contraceptive plan-- POP continue labetalol for now, to follow with PCP for cHTN if needing it beyond WWE in January FU for WWE in January Not available 09/18/2022 13:20:08 02/25/2023 02/25/2023 healthy female exam patient declines std testing pap due 2024 mammogram at 40 contraception-po p refilled estrace cream to perineum BID for a month or two with massage of perineum FU 1 year or prn [email or web address] Not available 02/27/2023 10:15:18 04/27/2024 04/27/2024 Annual gynecological exam performed. Patient will come back in a year unless there are new symptoms. [email or web address] Not available 04/14/2024 16:33:51 Plan of Treatment Reminders Order Date Submit Date Provider Last Modified By Organization Details Last Modified Time Details Appointments [facility] 2024 09:30A M REFUGIO RODRIGUEZ NP Not available Not available Not available Lab HbA1c (hemoglob in A1c), blood 2023 024 [facility] (Lab), [address], [place], [address], 06/23/2024 05:51:34 TSH, serum or plasma 2023 024 [facility] (Lab), [address], [place], [address], 06/23/2024 05:51:34 Referral None recorded. Procedures None recorded. Surgeries None recorded. Imaging None recorded. Medication Orders Lo Loestrin Fe 1 mg-10 mcg (24)/10 mcg (2) tablet 2023 [facility] #[id number], [address] [place] [address], [id number], 06/22/2024 15:27:33 norethind kimberly (contrace ptive) 0.35 mg tablet [address] [facility] #15448, [address] [place] [address], [id number], 09/28/2024 09:53:54 Estrace 0.01% (0.1 mg/gram) vaginal cream [address] [facility] #01382, [address] [place] [address], [id number], 04/27/2024 10:10:21 norethind kimberly (contrace ptive) 0.35 mg tablet [address] [facility] #05531, [address] [place] [address], [id number], 09/28/2024 09:53:54 Ortho Micronor 0.35 mg tablet [address] [facility] #32514, [address] [place] [address], [id number], 09/28/2024 09:53:54 Patient TargetsNo targets recorded. Patient InstructionsNo instructions recorded. Reason for Referral None Reported. Results Created Date Observation Date Name Description Value Unit Range Abnormal Flag Note LastModifiedBy Organization Detail LastModifiedTime 06/22/2006/22/2024 TSH, REFLE X FREE T4 TSH 0.94 uIU/m L 0.30-5 .33 Not Available [facility] (Lab) [address], [place], [address], 06/23/2024 05:51:34 06/22/20 24 06/22/2024 HEMOG LOBIN A1C hemoglobin A1C 5.3 % 4.0-5. 6 The Ameri can Di[employer] chanel [employer]oc iatio n recom mends that a prima ry goal of thera py shoul d be a HBA1C of < 7% and that physi cians shoul d reeva luate the treat ment regim en in patie nts with HBA1C value s consi stent ly > 8%. <5.7% Bhakti l 5.7 - 6.4% Incre ased risk for diabe chanel >=6.5 % Diagn ostic of diabe chanel <7.0% Goal of thera py >8.0% Actio n sugge sted Not Available [facility] (Lab) [address], [place], [address], 06/23/2024 05:51:34 Result Notes None recorded. Problems Name Problem SNOMED Code Status Onset Date Resolution Date Notes Provider Name and Address Organization Details Recorded Time Irritabl e bowel syndrome 11620462 Active 2021 Radha felder [facility] 3 16:54:01 Rheumato id arthriti s 78219761 Active 2021 antenata l testing NST & BPP wkly @ 32wks per MFM Radha Veronica [facility] 3 16:54:01 Pregnanc y 74312718 Completed 202110/26/2022 Radha Veronica [facility] 3 16:54:07 Insomnia 086663655 Active failed benadryl , unisom, will ask M re gabapent in/ambie n low dose folic acid suppleme nt recommen ded [facility] 16:54:01 Rheumato id rina raygoza 78603954 Completed 2021 antenata l testing NST & BPP wkly @ 32wks per MFM Radha Veronica [facility] 3 16:54:00 Irritabl e bowel syndrome 12027700 Completed 2021 Radha Veronica [facility] 3 16:54:01 Insomnia 785733891 Completed failed benadryl , unisom, will ask M re gabapent in/ambie n low dose folic acid suppleme nt recommen ded Radha Veronica [facility] 3 16:54:01 Maternal obesity complica ting pregnanc y, childbir th and the puerperi , antepart 31500289817 7 Active BMI 36, [facility] 3 16:54:01 Maternal obesity complica ting pregnanc y, childbir th and the puerperi , antepart 35179720129 7 Completed BMI 36, [facility] 3 16:54:01 Pregnanc y-induce d hyperten sabine 53188633 Completed 2022 IOL 08/16/22 [facility] 3 16:54:01 Problem Notes None recorded. Procedures Surgical History Date Name Laterality Status Provider Name and Address Organization Details Recorded Time 01/20/20 22 Date of Last Pap Smear completed Paulette Fong [facility] 07/06/2022 12:48:35 Cholecystectomy completed Elsa Sorenson [facility] 04/27/2024 10:14:20 Imaging Results None recorded. Procedure Notes None recorded. Medical Equipment None Reported. Allergies Allergen ID Allergen Name Allergen Category Reaction Reaction Severity Criticality Documentation Date Start Date Code Code System Note Provider Name and Address Organization Details Recorded Time 07136 Substance with sulfonami de structure and antibacte rial mechanism of action (substanc e) medicatio n hives severe Not available 01/19/2022 49356 8003 SNOMED Bianca Rico bradford, [facility] 2 14:08:35 22087 caffeine food,medi cation itching moderate Not available 01/19/2022 1886 RxNorm Bianca Liron felder, [facility] 2 14:08:42 Medications Name Sig Start Date Stop Date Status Note LastModified by Organization Details LastModified Time gabapentin 600 mg tablet TAKE 1 TABLET BY MOUTH NIGHTLY FOR BETTER SLEEP 04/27 completed Not Available Not Available Not Available labetalol 200 mg tablet TAKE 1 TABLET BY MOUTH EVERY 12 HOURS 02/25 completed Not Available Not Available Not Available rizatriptan 10 mg tablet 09/28 completed Not Available Not Available Not Available prednisone 5 mg tablet 09/28 completed Not Available Not Available Not Available meloxicam 7.5 mg tablet TAKE 2 TABLETS BY MOUTH FOR 1 DAY THEN TAKE 1 TABLET BY MOUTH DAILY FOR ARTHRITIS 06/22 completed Not Available Not Available Not Available methotrexat e sodium 2.5 mg tablet TAKE 5 TABLETS BY MOUTH 1 TIME WEEKLY IN THE MORNING AND IN THE EVENING 01/19 completed Not Available Not Available Not Available hyoscyamine ER 0.375 mg tablet,exte nded release,12 hr TAKE 1 TABLET BY MOUTH EVERY 12 HOURS NEEDED 01/19 completed Not Available Not Available Not Available prednisone 2.5 mg tablet TAKE 3 TABLETS BY MOUTH DAILY 01/19 completed Not Available Not Available Not Available pantoprazol e 40 mg tablet,endy yed release active Not Available Not Available Not Available gabapentin 300 mg capsule TAKE 1 CAPSULE BY MOUTH EVERY DAY AT BEDTIME active Not Available Not Available No t Available diclofenac sodium 75 mg tablet,endy yed release 09/28 completed Not Available Not Available Not Available folic acid 1 mg tablet 01/19 completed Not Available Not Available Not Available azelastine 137 mcg (0.1 %) nasal spray USE 2 SPRAYS IN EACH NOSTRIL TWICE DAILY active Not Available Not Available No t Available estradiol 0.01% (0.1 mg/gram) vaginal cream APPLY PEA SIZED AMOUNT VAGINALLY TO PERINEUM EVERY NIGHT 04/27 completed Not Available Not Available Not Available albuterol sulfate HFA 90 mcg/actuati on aerosol inhaler active Not Available Not Available Not Available norethindro ne (contracept carlos) 0.35 mg tablet TAKE 1 TABLET BY MOUTH EVERY DAY 09/28 completed Not Available Not Available Not Available propranolol 20 mg tablet active Not Available Not Available Not Available fluticasone propionate 50 mcg/actuati on nasal spray,suspe nsion USE 1 SPRAY IN EACH NOSTRIL ONCE DAILY active Not Available Not Available No t Available duloxetine 20 mg capsule,del ayed release TAKE 1 CAPSULE BY MOUTH EVERY DAY active Not Available Not Available No t Available labetalol 09/18 completed Not Available Not Available Not Available cholecalcif cheryl (vitamin D3) 1,250 mcg (50,000 unit) capsule TAKE ONE CAPSULE BY MOUTH ONCE A WEEK . TAKE WITH FOOD 06/22 completed Not Available Not Available Not Available DHA 04/27 completed Not Available Not Available Not Available Xifaxan 550 mg tablet TAKE 1 TABLET BY MOUTH THREE TIMES DAILY FOR 14 DAYS 04/27 completed Not Available Not Available Not Available Lo Loestrin Fe 1 mg-10 mcg (24)/10 mcg (2) tablet TAKE 1 TABLET BY MOUTH EVERY DAY active Not Available Not Available No t Available Simponi ARIA 12.5 mg/mL intravenous solution active Not Available Not Available Not Available Simponi ARIA 04/27 completed Not Available Not Available Not Available duloxetine 40 mg capsule,del ayed release TAKE 1 CAPSULE BY MOUTH EVERY DAY 04/27 completed Not Available Not Available Not Available Vitals Date Recorded Body height Body mass index (BMI) Systolic blood pressure Diastolic blood pressure Provider Name and Address Organization Details Last Updated DateTime 09/18/2022 157.48 cm 36.8 kg/m2 115 mm[Hg] 79 mm[Hg] Bianca Rico [facility] 09/18/2022 12:53:23 Date Recorded Body weight Provider Name an d Address Organization Details Last Updated DateTime 09/18/2022 87930.33223 g Radha Veronica [facility] 10/26/2022 16:54:05 Date Recorded Body height Body mass index (BMI) Body weight Systolic blood pressure Diastolic blood pressure Provider Name and Address Organization Details Last Updated DateTime 02/25/2023 157.48 cm 36.2 kg/m2 66049.29 g 126 mm[Hg] 80 mm[Hg] Bianca Rico [facility] 3 15:51:49 Date Recorded Body height Body mass index (BMI) Body weight Systolic blood pressure Diastolic blood pressure Provider Name and Address Organization Details Last Updated DateTime 04/27/2024 157.48 cm 37.4 kg/m2 71843 g 111 mm[Hg] 73 mm[Hg] [facility] 4 10:08:50 Date Recorded Body height Body mass index (BMI) Body weight Systolic blood pressure Diastolic blood pressure Provider Name and Address Organization Details Last Updated DateTime 06/22/2024 157.48 cm 38.2 kg/m2 67554.81 g 134 mm[Hg] 82 mm[Hg] [facility] 4 14:54:37 Date Recorded Body height Body mass index (BMI) Body weight Systolic blood pressure Diastolic blood pressure Provider Name and Address Organization Details Last Updated DateTime 09/28/2024 157.48 cm 39.1 kg/m2 06781.77 g 140 mm[Hg] 88 mm[Hg] [facility] 5 09:53:37 Social History Question Answer Notes LastModified by Organizat ion Details LastModified Time Tobacco Smoking Status Never Smoker Monae Almaraz [facility] 02/25/2023 15:41:10 Do You Have An Advance Directive? No [email or web address] Information n ot available 07/06/2022 How Many Years Have You Consumed Alcohol? 10 [email or web address] Information not available 07/06/2022 Are You Blind Or Do You Have Difficulty Seeing? No [email or web address] Information n ot available 07/06/2022 What Is Your Level Of Caffeine Consumption? Occasional [email or web address] Information not available 07/06/2022 How Much Tobacco Do You Chew? None [email or web address] Information not available 07/06/2022 In The 14 Days Before Symptom Onset, Have You Had Close Contact With A Laboratory-confirm ed COVID-19 While That Case Was Ill? No Information n ot available 07/06/2022 In The 14 Days Before Symptom Onset, Have You Had Close Contact With A Person Who Is Under Investigation For COVID-19 While That Person Was Ill? No [email or web address] Information not available 07/06/2022 Have You Been To An Area Known To Be High Risk For COVID-19? No [email or web address] Information not available 07/06/2022 Are You Deaf Or Do You Have Serious Difficulty Hearing? No [email or web address] Information not available 07/06/2022 What Type Of Diet Are You Following? REGULAR [email or web address] Information n ot available 07/06/2022 What Is The Highest Grade Or Level Of School You Have Completed Or The Highest Degree You Have Received? [id number] [email or web address] Information not available 07/06/2022 Are There Any Guns Present In Your Home? No [email or web address] Information not available 07/06/2022 Do You Use Protection During Sex? No [email or web address] Information not available 07/06/2022 Do You Use Your Seat Belt Or Car Seat Routinely? Yes [email or web address] Information not available 07/06/2022 Do You Have Smoke And Carbon Monoxide Detectors In Your Home? Yes [email or web address] Information not available 07/06/2022 How Much Tobacco Do You Smoke? No [email or web address] Information not available 07/06/2022 Do You Use Sunscreen Routinely? Yes [email or web address] Information not available 07/06/2022 Has Tobacco Cessation Counseling Been Provided? No [email or web address] Information not available 02/25/2023 How Many Years Have You Smoked Tobacco? 0 [email or web address] Information not available 07/30/2022 Have You Used IV Drugs? No [email or web address] Information not available 07/06/2022 Do You Have Difficulty Walking Or Climbing Stairs? No [email or web address] Information not available 02/25/2023 Sex: Unknown Functional Status Question Answer Note LastModified by Organizat ion Details LastModified Time Do you use any illicit or recreational drugs? No [email or web address] Information not available 01/19/2022 Do you or have you ever used any other forms of tobacco or nicotine? No [email or web address] Information not available 02/25/2023 What is your level of alcohol consumption? None [email or web address] Information not available 06/22/2024 Are you able to walk? YESWOREST [email or web address] Information not available 07/06/2022 Are you able to care for yourself? 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 No [email or web address] Information not available 02/25/2023 What is your exercise level? Occasional [email or web address] Information not available 07/06/2022 Mental Status Question Answer Note LastModified by Organization D etails LastModified Time Do you feel stressed (tense, restless, nervous, or anxious, or unable to sleep at night)? [id number] [email or web address] Information not available 06/22/2024 Family History Relationship Description Onset Age of this Age Resolved Age Notes LastModified by Organization Details LastModified Time Father Anemia [email or web address] Not available 14:11:03 Mother Depressive disorder [email or web address] Not available 2022 13:22:26 Sister Depressive disorder [email or web address] Not available 2022 13:22:26 Medical History Condition Response Allergies (Food, seasonal, environmental ) Y Other N Breast Cancer N Blood Transfusion N Drug/Latex Allergies/Reactions Y Dermatologic Disorders N Lung Disease N Defects or Inherited Disease N Breast Problem N Gestational Diabetes N Hematologic disorders N Anesthesia Complications N History of STI N Deep Vein Thrombosis N Polycystic ovary syndrome N Anxiety Disorder N Autoimmune disease Y Arthritis Y Polyps N Infertility N Acid Reflux (GERD) N History of abnormal pap N Cancer N Varicosities N Stroke N Neurologic/Epilepsy N Endometriosis N High Cholesterol N Fibromyalgia N Headaches N Kidney Disease N Heart Problems N Thyroid Problems N Kidney or Bladder Problems N GI Problems Y Eating Disorder N Anemia N Art (IVF or FET) N Psychiatric Illness N Ovarian Cancer N Diabetes N Pulmonary (TB, Asthma) N Hepatitis/Liver Disease N No Past Medical History N Eczema N Urinary Tract Infection N Abuse/Domestic Violence N Asthma N Trauma/Violence N Depression/ depression N Heart Disease N Pre-Eclampsia N Hypertension N Osteoporosis N Thrombophilias N Gynecological History Statement/Question Response Abnormal Pap N Flow Light Date of LMP 09/26/2024 On BCP's at Conception? N N Was last menstrual period normal Y STIs/STDs N HPV Vaccine Y Current Control Method None Age at First Child 31 Frequency of Cycle (Q days) 25 Sexually Active? N BCPs Menses Monthly Y Age of first menstrual cycle 11 Date of Last Pap Smear 01/19/2022 Sexual Problems? N Desired Control Method BCPs LMP Definite N Obstetrics History GPAL:G 1 P 1 0 0 1 Type Value Full Term 1 Living 1 Total 1 Past Encounters Encounter ID Performer Location Encounter Start Date Encounter Closed Date Diagnosis/Indication Diagnosis SNOMED-CT Code Diagnosis ICD10 Code Diagnosis Note [id number] Rema Jameson MD [facility] [address] [place] [address] 01/19/2022 12:21:41 01/19/2022 12:51:29 [id number] Rema Jameson MD [facility] [address] [place] [address] 01/19/2022 14:04:52 01/22/2022 15:58:42 test positive 260631626 Z32.01 Rheumatoid arthritis 698 37502 M06.9 Body mass index 30+ - obesity 599924829 Z68.36 Screening for malignant neoplasm of cervix 612096040 Z12.4 Venereal d isease screening 670511369 Z11.3 [id number] Rema Jameson MD [facility] [address] [place] [address] 02/14/2022 12:20:46 02/14/2022 13:58:40 [id number] Rema Jameson MD [facility] [address] [place] [address] 02/14/2022 13:57:07 02/14/2022 18:14:21 Routine care 023016594 Z34.91 [facility] 948011906 G47.0 0 Maternal o besity complicating , childbirth and the puerperium, antepartum 0874249679 07 O99.211 Rheumatoid arthritis 698 32903 M06.9 Irritable bowel syndrome 77007296 K58.9 [id number] MD Puam Lynne [address] [address] 03/14/2022 15:23:51 03/14/2022 17:31:18 [id number] Rema Jameson MD [facility] [address] [address] 03/14/2022 15:25:12 03/16/2022 16:43:42 Insomnia 319710960 G47.00 Rheumatoid arthritis 698 70668 M06.9 Maternal o besity complicating , childbirth and the puerperium, antepartum 7751551271 07 O99.211 [id number] Rema Jameson MD [facility] [address] [address] 04/16/2022 10:04:47 04/16/2022 14:32:30 Rheumatoid arthritis 08882114 M06.9 Routine an tenatal care 101285117 Z34.91 [id number] Rema Jameson MD [facility] [address] [address] 05/18/2022 11:15:04 05/18/2022 12:17:36 Routine care 436085185 Z34.91 Rheumatoid arthritis 698 49065 M06.9 [id number] Rema Jameson MD [facility] [address] [address] 06/18/2022 09:23:14 06/18/2022 11:19:24 Rheumatoid arthritis 53540375 M06.9 Routine an tenatal care 460383345 Z34.91 [id number] Tonia Sequeira, [facility] [address] [address] 07/06/2022 13:51:36 07/06/2022 14:20:14 Routine care 917835290 Z34.93 [id number] MD Puma Lynne [address] [address] 07/10/2022 16:30:44 07/10/2022 17:33:46 Rheumatoid arthritis 49590108 M06.9 [id number] MD Puma Lynne [address],[place] [address] 07/10/2022 16:31:02 07/10/2022 18:30:18 Maternal obesity complicating , childbirth and the puerperium, antepartum 2731125057 07 O99.213 O99.891 M06.9 Z3A.32 [id number] Rema Jameson MD [facility] [address] [address] 07/10/2022 16:50:12 07/16/2022 15:18:39 Routine care 942882886 Z34.91 Maternal o besity complicating , childbirth and the puerperium, antepartum 1316250624 07 O99.213 O99.891 M06.9 Z3A.32 Rheumatoid arthritis 698 67467 M06.9 [id number] Rema Jameson MD [facility] [address] [address] 07/16/2022 13:21:38 07/16/2022 14:15:56 Rheumatoid arthritis 86772527 M06.9 [id number] MD Puma Lynne [address] [address] 07/16/2022 13:22:04 07/16/2022 14:34:37 Pre-existing maternal disease complicating 3205722890 6106 O99.891 O99.213 Z3A.33 [id number] MD Puma Lynne [address] [address] 07/16/2022 13:22:21 07/17/2022 15:21:57 Rheumatoid arthritis 53209176 M06.9 Routine an tenatal care 622857798 Z34.91 [id number] MD Rosenda [place] [address] [address] 07/23/2022 09:57:46 07/23/2022 11:44:36 Rheumatoid arthritis 20452683 M06.9 [id number] MD Puma [place] [address] [address] 07/23/2022 09:58:05 07/23/2022 11:44:19 Rheumatoid arthritis 41677898 M06.9 [id number] MD Puma Lynne [address] [address] 07/23/2022 09:58:21 07/23/2022 14:36:47 Rheumatoid arthritis 57079038 M06.9 Routine an tenatal care 075655545 Z34.91 [id number] MD Puma [place] [address] [address] 07/30/2022 09:57:01 07/30/2022 11:53:36 Pre-existing maternal disease complicating 6306658074 6106 O99.891 O99.213 Z3A.35 [id number] MD Puma Lynne [address] [address] 07/30/2022 09:58:16 07/30/2022 11:55:21 Rheumatoid arthritis 58414969 M06.9 [id number] MD Puma Lynne [address] [address] 07/30/2022 09:58:31 07/30/2022 12:23:24 Routine care 255026274 Z34.91 Rheumatoid arthritis 698 49293 M06.9 [id number] MD Puma Lynne [address] [address] 08/07/2022 14:03:17 08/07/2022 15:20:42 Rheumatoid arthritis 43715275 M06.9 Z3A.36 Routine an tenatal care 119367420 Z34.91 [id number] MD Puma Lynne [address] [address] 08/07/2022 14:03:27 08/07/2022 15:09:44 Rheumatoid arthritis 44584543 M06.9 Z3A.36 [id number] Rema Jameson MD [facility] [address] [address] 08/07/2022 14:06:18 08/07/2022 21:33:25 Pre-existing maternal disease complicating 7460776725 6106 O99.891 O99.213 Z3A.36 [id number] Miguel Jackman MD [facility] [address] [address] 08/13/2022 09:57:45 08/13/2022 11:55:29 Pre-existing maternal disease complicating 0639215887 6106 O99.891 Z3A.37 [id number] MD Puma [place] [address] [address] 08/13/2022 09:58:55 08/13/2022 11:02:09 Rheumatoid arthritis 16902305 M06.9 Z3A.36 [id number] Shante Lal [facility] [address] [address] 08/13/2022 09:59:34 08/14/2022 17:13:12 Routine care 154248838 Z34.93 - induced hypertension 29112231 O13.9 [id number] Miguel Jackman MD [facility] [address] [address] 08/16/2022 09:28:27 08/16/2022 11:15:51 -induced hypertension 27047611 O13.9 See flowsheet for details. [id number] MD Puma [place] [address] [address] 08/16/2022 10:24:32 08/16/2022 10:47:23 -induced hypertension 10893454 O13.9 [id number]|2024-11-19 02:48:00|2024-11-19 02:47:00|XMS_ITS|BKG DAEMON|External Medical Summaries|[id number]|" Data Portability Created on: November 19, 2024 Fernanda Chong .[id number] : 1990 Sex: Female Author Organization [facility] [employer], Main Office Address [address] [place] [address] Assessment No assessment recorded. Plan of Treatment Reminders Order Date Submit Date Provider Last Modified By Organization Details Last Modified Time Details Appointments None recorded. Lab lipid panel, serum [address] (Lab), [address] [place] [address], [phone], 5 10:05:44 CMP, serum or plasma [address] (Lab), [address] [place] [address], [id number], 5 10:05:44 CBC w/ auto diff [address] (Lab), [address] [place] [address], [phone], 5 10:05:44 lipid panel, serum 2023 024 [facility] (Lab), [address] [place], [address], 4 13:43:33 CMP, serum or plasma 2023 024 [facility] (Lab), [address] [place], [address], 4 13:43:38 Referral None recorded. Procedures None recorded. Surgeries None recorded. Imaging US, gallbladder 2023 024 68 [address], [address], [place], [address], 4 08:58:50 MRI, lumbar spine, w/o contrast 2023 024 [facility], [address], [place], [address], 4 09:20:06 Medication Orders duloxetine 20 mg capsule,del ayed release 2024 025 [facility] #[id number], [address] [place] [address], [id number], 5 16:33:03 gabapentin 600 mg tablet 2024 025 [facility], [address] [place] [address], [id number], 5 16:33:05 duloxetine 20 mg capsule,del ayed release 2023 024 [facility], [address] [place] [address], [id number], 4 16:14:08 gabapentin 300 mg capsule [address] [facility] #65970, [address] [place] [address], [id number], 5 16:33:02 duloxetine 20 mg capsule,del ayed release 2023 024 [facility] #37643, [address] [place] [address], [id number], 4 16:21:47 duloxetine 40 mg capsule,del ayed release [address] [facility] #89789, [address] [place] [address], [id number], 4 16:22:16 duloxetine 20 mg capsule,del ayed release 2023 024 [email or web address] [facility] #72949, [address] [place] [address], [id number], 16:22:20 Patient TargetsNo targets recorded. Patient InstructionsNo instructions recorded. Reason for Referral None Reported. Results Created Date Observation Date Name Description Value Unit Range Abnormal Flag Note LastModifiedBy Organization Detail LastModifiedTime 12/19/1912/19/2023 LIPID PANEL cholesterol 243 mg/dL 140-19 9 high NIH SUZANNE NSUS RECOM MENDA TION FOR HO STERO L: ADULT CHILD LOW RISK: <200 <170 BORDE RLINE : <200- 239 ----- HIGH RISK: >240 >200 Not Available [facility] (Lab) [address] [place], [address], 12/19/2023 13:43:33 12/19/19 24 12/19/2023 LIPID PANEL triglyceride s 125 mg/dL 0-150 NIH SUZANNE NSUS REPOR T RECOM MENDA TION FOR TRIGL YCERI EDMAR: ADULT CHILD LOW RISK: <150 ----- BODER LINE: 150-1 99 ----- HIGH RISK: >200 ----- Not Available [facility] (Lab) [address] [place], [address], 12/19/2023 13:43:33 12/19/19 24 12/19/2023 LIPID PANEL HDL cholesterol 53 mg/dL 40- Not Available [facility] (Lab) [address] [place], [address], 12/19/2023 13:43:33 12/19/19 24 12/19/2023 LIPID PANEL LDL cholesterol, calculated 165 mg/dL 0-130 high NIH SUZANNE NSUS REPOR T RECOM MENDA TIONS FOR LDL: ADULT CHILD LOW RISK <130 <110 (OPTI MAL LDL) <100 ----- BORDE RLINE : 130-1 59 ----- HIGH RISK: >160 >130 A TRIGL YCERI DE RESUL T >400 INVAL IDATE S THE CALCU LATIO N FOR LDL FRACT IONAT ION - THE LDL RESUL T WILL NOT BE REPOR BRIDGER. Not Available [facility] (Lab) [address] [place], [address], 12/19/2023 13:43:33 12/19/19 24 12/19/2023 COMPR EHENS CARLOS METAB OLIC PANEL sodium 138 mmol/ L 137-14 5 Not Available [facility] (Lab) [address] [place], [address], 12/19/2023 13:43:38 12/19/19 24 12/19/2023 COMPR EHENS CARLOS METAB OLIC PANEL potassium 4.3 mmol/ L 3.5-5. 1 Not Available [facility] (Lab) [address] [place], [address], 12/19/2023 13:43:38 12/19/19 24 12/19/2023 COMPR EHENS CARLOS METAB OLIC PANEL chloride 107 mmol/ L 98-107 Not Available [facility] (Lab) [address] [place], [address], 12/19/2023 13:43:38 12/19/19 24 12/19/2023 COMPR EHENS CARLOS METAB OLIC PANEL carbon dioxide 25 mmol/ L 22-30 Not Available [facility] (Lab) [address] [place], [address], 12/19/2023 13:43:38 12/19/19 24 12/19/2023 COMPR EHENS CARLOS METAB OLIC PANEL anion gap 10.3 mmol/ L 14-22 low Not Available [facility] (Lab) [address] [place], [address], 12/19/2023 13:43:38 12/19/19 24 12/19/2023 COMPR EHENS CARLOS METAB OLIC PANEL glucose 85 mg/dL 70-99 Not Available [facility] (Lab) [address] [place], [address], 12/19/2023 13:43:38 12/19/19 24 12/19/2023 COMPR EHENS CARLOS METAB OLIC PANEL BUN 10 mg/dL 8-19 Not Available [facility] (Lab) [address] [place], [address], 12/19/2023 13:43:38 12/19/19 24 12/19/2023 COMPR EHENS CARLOS METAB OLIC PANEL creatinine 0.58 mg/dL 0.66-1 .25 low Not Available [facility] (Lab) [address] [place], [address], 12/19/2023 13:43:38 12/19/19 24 12/19/2023 COMPR EHENS CARLOS METAB OLIC PANEL GFR >60 Refer ence Range : Prichard ge GFR Healt hy Adult : >60 [...] or ethni c subgr oups, such as Hispa nics. Outsi de the valid ated cleo [...] calcu lator is avail able on the [facility] websi te: https :[email or web address] [email or web address] [email or web address] s/kdo qi/gf r_cal culat or Not Available [facility] (Lab) [address] [place], [address], 12/19/2023 13:43:38 12/19/19 24 12/19/2023 COMPR EHENS CARLOS METAB OLIC PANEL alkaline phosphatase 59 U/L 38-126 Not Available [facility] (Lab) [address] [place], [address], 12/19/2023 13:43:38 12/19/19 24 12/19/2023 COMPR EHENS CARLOS METAB OLIC PANEL alanine aminotransfe rase 32 U/L 0-35 Not Available [facility] (Lab) [address] [place], [address], 12/19/2023 13:43:38 12/19/19 24 12/19/2023 COMPR EHENS CAROLS METAB OLIC PANEL aspartate aminotransfe rase 30 U/L 15-37 Not Available [facility] (Lab) [address] [place], [address], 12/19/2023 13:43:38 12/19/19 24 12/19/2023 COMPR EHENS CARLOS METAB OLIC PANEL bilirubin, total 0.60 mg/dL 0.20-1 .30 Not Available [facility] (Lab) [address] [place], [address], 12/19/2023 13:43:38 12/19/19 24 12/19/2023 COMPR EHENS CARLOS METAB OLIC PANEL calcium 9.4 mg/dL 8.4-10 .2 Not Available [facility] (Lab) [address] [place], [address], 12/19/2023 13:43:38 12/19/19 24 12/19/2023 COMPR EHENS CARLOS METAB OLIC PANEL total protein 8.2 g/dL 6.3-8. 2 Not Available [facility] (Lab) [address] [place], [address], 12/19/2023 13:43:38 12/19/19 24 12/19/2023 COMPR EHENS CARLOS METAB OLIC PANEL albumin 5.0 g/dL 3.4-5. 0 Not Available [facility] (Lab) [address] [place], [address], 12/19/2023 13:43:38 12/19/19 24 12/19/2023 COMPR EHENS CARLOS METAB OLIC PANEL globulin 3.2 g/dL 2.6-4. 2 Not Available [facility] (Lab) [address] [place], [address], 12/19/2023 13:43:38 12/19/19 24 12/19/2023 COMPR EHENS CARLOS METAB OLIC PANEL A/G ratio 1.6 ratio 1.0-2. 0 Not Available [facility] (Lab) [address] [place], [address], 12/19/2023 13:43:38 12/20/19 24 07/10/2022 US, obste tric No observ ation record ed. [email or web address] [facility] [address], [place], [address], 12/24/2023 13:21:35 12/31/19 24 12/30/2023 MRI, lumba r spine , w/o contr ast No observ ation record ed. [email or web address] [facility] [address], [place], [address], 01/01/2024 12:08:17 03/13/20 24 03/13/2024 US, gallb ladde r No observ ation record ed. [email or web address] [facility] [address], [place], [address], 03/17/2024 11:19:23 Result Notes None recorded. Problems Name Problem SNOMED Code Status Onset Date Resolution Date Notes Provider Name and Address Organization Details Recorded Time Insomnia 728921488 Active 2021 Not Available [facility] 3 16:16:00 Lupus erythemato [place] 989153821 Active Not Available [facility] 3 16:16:00 Fibromyalg ia 007114558 Active Not Available [facility] 3 16:16:00 On examinatio n - rash present Completed Not Available [facility] 3 16:16:00 Bowel problem 410044255 Active Not Available [facility] 3 16:16:00 Pain of multiple joints 29586417 Active Not Available [facility] 3 16:16:00 Obesity 034612365 Active 2021 Not Available [facility] 3 16:16:00 Gastritis 6883565 Active Not Available [facility] 3 16:16:01 Upper respirator y infection 05786001 Completed Not Available [facility] 3 16:16:01 Acid reflux 550621317 Active 2021 Not Available [facility] 3 16:16:01 Rheumatoid arthritis 37553878 Active 2021 Not Available [facility] 3 16:16:01 Skin nodule 14237132 Active Not Available [facility] 3 16:16:01 Anxiety 07063817 Active 2023 Dwayne Aragon MD [address], [address], [place], [address] , [place] [employer] [facility] [employer] 4 11:50:25 Low back pain 960923716 Active 2023 Dwayne Aragon MD [address], [address], [place], [address] , [place] [facility] 4 11:50:38 Irritable bowel syndrome 04751183 Active 2023 Dwayne Aragon MD [address], [address], [place], [address] , [place] [facility] 4 11:53:23 Right upper quadrant pain 650088496 Active 2023 Dwayne Aragon MD [address], [address], [place], [address] , [place] [facility] 4 16:19:20 Wheezing 78599402 Active 2023 Pratibha Atkins NP [address], [address], [place], [address] , [place] [facility] 14:58:14 Hyperlipid emia 49025136 Active 2024 Dwayne Aragon MD [address], [address], [place], [address] , [place] - [facility] 5 16:32:03 Fatigue 10688309 Active 2024 Dwayne Aragon MD [address], [address], [place], [address] , [place] [facility] 5 16:35:01 Problem Notes None recorded. Procedures Surgical History Date Name Laterality Status Provider Name and Address Organization Details Recorded Time 06/12/2021 Endoscopy completed Not Available [facility] 09/05/2022 16:14:56 Imaging Results Imaging Date Name Status LastModified by Organiz ation Details LastModified Time 07/10/2022 US, obstetric completed [email or web address] [facility] [address], [place], [address], 12/24/2023 13:21:35 12/30/2023 MRI, lumbar spine, w/o contrast completed [address], [place], [address], 01/01/2024 12:08:17 03/13/2024 US, gallbladder completed [email or web address] [facility] [address], [place], [address], 03/17/2024 11:19:23 Procedure Notes None recorded. Medical Equipment None Reported. Allergies Allergen ID Allergen Name Allergen Category Reaction Reaction Severity Criticality Documentation Date Start Date Code Code System Note Provider Name and Address Organization Details Recorded Time 34353 sulfameth oxazole / trimethop rim medicatio n hives Not available Not available 09/05/2022 16047 RxNorm Not Available [facility] 3 16:16:52 41786 azathiopr ine medicatio n Not available Not available Not available 12/19/2023 1256 RxNorm Isaura gregory, STANLEY felder, [place] - [facility] 4 11:22:39 Medications Name Sig Start Date [...] Address Organization Details Last Updated DateTime 4 17347.5 7 g 38.1 kg/m2 157.48 cm 94 /min 97 % 97 % 124 mm[Hg] 80 mm[Hg] Samantha New Danyel [facility] 4 11:17:31 Date Recorded Body height Body mass index (BMI) Body weight Body temperature Heart rate Oxygen saturation Oxygen saturation in Arterial blood by Pulse oximetry Systolic blood pressure Diastolic blood pressure Provider Name and Address Organization Details Last Updated DateTime 4 157.48 cm 37.1 kg/m2 61134.2 5 g 97.5 [degF] 80 /min 97 % 97 % 124 mm[Hg] 70 mm[Hg] Isaura gregory [facility] 4 16:05:52 Date Recorded Body weight Body mass index (BMI) Body height Body temperature Heart rate Oxygen saturation Oxygen saturation in Arterial blood by Pulse oximetry Systolic blood pressure Diastolic blood pressure Provider Name and Address Organization Details Last Updated DateTime 4 17339.2 5 g 37.1 kg/m2 157.48 cm 97.1 [degF] 110 /min 98 % 98 % 130 mm[Hg] 80 mm[Hg] Isaura gregory [facility] 4 15:59:36 Date Recorded Body height Body mass index (BMI) Body weight Body temperature Heart rate Oxygen saturation Oxygen saturation in Arterial blood by Pulse oximetry Systolic blood pressure Diastolic blood pressure Provider Name and Address Organization Details Last Updated DateTime 4 157.48 cm 37.7 kg/m2 94871.0 3 g 97.5 [degF] 84 /min 97 % 97 % 120 mm[Hg] 66 mm[Hg] Isaura gregory [facility] 4 15:51:40 Date Recorded Body height Body mass index (BMI) Body weight Heart rate Body temperature Oxygen saturation Oxygen saturation in Arterial blood by Pulse oximetry Systolic blood pressure Diastolic blood pressure Provider Name and Address Organization Details Last Updated DateTime 5 157.48 cm 38 kg/m2 79644.2 1 g 89 /min 97.8 [degF] 98 % 98 % 124 mm[Hg] 76 mm[Hg] Melissa howard [place] [facility] [employer] [facility] [employer] 5 16:22:35 Social History Question Answer Notes LastModified by Organizat ion Details LastModified Time Tobacco Smoking Status Never Smoker Not Available [facility] 09/05/2022 16:14:53 Do You Have An Advance Directive? No [id number] Information not available 09/05/2022 What Is Your Level Of Caffeine Consumption? Occasional MIGRATION.[id number] Information not available 09/05/2022 What Is Your Code Status? Full Code [id number] Information not available 09/05/2022 In The 14 Days Before Symptom Onset, Have You Had Close Contact With A Laboratory-confirm ed COVID-19 While That Case Was Ill? No MIGRATION.[id number] 8048 Information not available 09/05/2022 In The 14 Days Before Symptom Onset, Have You Had Close Contact With A Person Who Is Under Investigation For COVID-19 While That Person Was Ill? No MIGRATION.132135 7277 Information not available 09/05/2022 What Type Of Diet Are You Following? REGULAR MIGRATION.[id number] 9568 Information not available 09/05/2022 Do You Have A Medical Power Of Party Planner? No MIGRATION.513545 6918 Information not available 09/05/2022 Have You Ever Been Counseled For Unhealthy Alcohol Use? No MIGRATION.551502 8179 Information not available 09/05/2022 What Is Your Relationship Status? MIGRATION.519984 8004 Information not available 09/05/2022 Do You Use Your Seat Belt Or Car Seat Routinely? Yes MIGRATION.711778 1684 Information not available 09/05/2022 Do You Have Smoke And Carbon Monoxide Detectors In Your Home? Yes MIGRATION.954157 6477 Information not available 09/05/2022 Are You Passively Exposed To Smoke? No MIGRATION.401798 4803 Information not available 09/05/2022 Do You Use Sunscreen Routinely? Yes MIGRATION.529709 8766 Information not available 09/05/2022 Have You Recently Traveled Abroad? No MIGRATION.811955 0309 Information not available 09/05/2022 Do You Have Any Dietary Restrictions? No MIGRATION.565645 2514 Information not available 09/05/2022 Sex: Unknown Functional Status Question Answer Note LastModified by Organizat ion Details LastModified Time Do you use any illicit or recreational drugs? No MIGRATION.3510321 026 Information not available 09/05/2022 What is your level of alcohol consumption? 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 None MIGRATION.2689333 026 Information not available 09/05/2022 Mental Status Question Answer Note LastModified by Organizat ion Details LastModified Time Do you feel stressed (tense, restless, nervous, or anxious, or unable to sleep at night)? [id number] MIGRATION.[id number] 6 Information not available 09/05/2022 Family History Relationship Description Onset Age of this Age Resolved Age Notes LastModified by Organization Details LastModified Time Mother Irritable bowel syndrome MIGRATION.473 [id number] Not available 09/05/2022 16:14:56 Mother Fibromyalgia MIGRATION.0 30 [id number] Not available 09/05/2022 16:14:56 Mother Degeneration of intervertebr al disc MIGRATION.774 [id number] Not available 09/05/2022 16:14:57 Father Hypertensive disorder MIGRATION.012 6149232 Not available 09/05/2022 16:14:57 Father Hypercholest erolemia MIGRATION.066 1264903 Not available 09/05/2022 16:14:57 Sister Degeneration of intervertebr al disc MIGRATION.489 [id number] Not available 09/05/2022 16:14:57 Sister Fibromyalgia MIGRATION.0 30 8657436 Not available 09/05/2022 16:14:57 Medical History No medical history recorded. Gynecological HistoryNo gynecological history recorded. Obstetrics History GPAL:G 0 P 0 0 0 0 Immunizations Vaccine Type Date Status Note Provider Nam e and Address Organization Details Recorded Time Influenza, split virus, trivalent, PF 4 completed STANLEY Arreaga null, [place] - [facility] [employer] [facility] [employer] 05/19/2024 17:13:40 SARS-COV-2 (COVID-19) vaccine, UNSPECIFIED 2 completed Not Available [facility] 09/05/2022 16:16:51 COVID-19 Non-US Vaccine, Product Unknown 1 completed Not Available [facility] 09/05/2022 16:16:51 Past Encounters Encounter ID Performer Location Encounter Start Date Encounter Closed Date Diagnosis/Indication Diagnosis SNOMED-CT Code Diagnosis ICD10 Code Diagnosis Note [id number] _ATHN_MIGR ATION_1 _ATHENA_M IGRATION_ DEFAULT_1 _1 , 04/12/2021 00:00:00 04/12/2021 11:26:21 [id number] _ATHN_MIGR ATION_1 _ATHENA_M IGRATION_ DEFAULT_1 _1 , 07/26/2021 00:00:00 07/26/2021 17:06:30 [id number] Dwayne Aragon MD [facility] Internal Med [address] [place] [address] 12/19/2021 00:00:00 12/19/2021 16:23:52 [id number] Dwayne Aragon MD [facility] Internal Med [address] [place] [address] 04/27/2022 00:00:00 04/27/2022 12:20:27 [id number] Dwayne Aragon MD [facility] Internal Med [address] [place] [address] 12/19/2023 11:10:12 12/19/2023 12:08:33 Fibromyalgia 538494385 M79.7 start duloxetine Insomnia 081727960 G47.0 0 otc Acid reflux 601255747 K2 1.9 meds help Obesity 199097010 E66.9 advised to lose Rheumatoid arthritis 698 30042 M06.9 getting treatment Adult heal th examination 707573626 Z00.00 Colonoscop y- 07/2023- polyp removed- benignEGD- 07/2023 - Dr. Moraes- 3COVID- 09/10/2020 , 07/24/2021 Anxiety 33601888 F41.9 start meds Low back pain 870763816 M54.50 getting worse, some radiation to the leg Irritable bowel syndrome 82598255 K58.9 meds help [id number] Dwayne Aragon MD [facility] Internal Med [facility] [address] [facility] [place] [address] 01/16/2024 15:50:31 01/16/2024 16:23:07 Fibromyalgia 473825415 M79.7 ^ duloxetine Right uppe r quadrant pain 549964330 R10.11 [id number] Dwayne Aragon MD [facility] Internal Med [facility] [address] [facility] [place] [address] 04/21/2024 15:52:41 04/21/2024 16:22:36 Fibromyalgia 241905481 M79.7 start duloxetine 20 mg qd, add gabapentin Adult heal th examination 362178308 Z00.00 Colonoscop y- 07/2023- polyp removed- benignEGD- 07/2023 - Dr. BarberFLU- 3COVID- 09/10/2020 , 07/24/2021 [id number] Dwayne Aragon MD
--- OUTSIDE RECORDS SUMMARY | 2024-11-19 02:48 | XMS_ITS | Clinical Summary ---
Author Organization [facility] Address [address] [place] [address] Care Team Providers Care [employer] Teacher Name Role Phone Unavailable Primary Care Provider Unavailabl e Source Comments [facility],non-owned Affiliates and Associated Physician Practices is amultiple site organization consisting of ambulatory clinics and hospital sitesin [place], [place], [place] and [place]. This disclosure is being madepursuant to the Care Everywhere program and may not contain all information available regarding this patient. Last updated 18.[facility] Allergies Active Allergy Reactions Criticality Noted Date [...] Name:DISHA HELMS Subscriber ID:Not on file Address: [address] [place] [id number] Payer ID:Not on file Group ID:Not on file Type:Self Pay Address: [address] * Guarantor: DISHA HELMS Account Type Relation to Patient Date of Phone Billing Address Personal/Family Spouse
--- OUTSIDE RECORDS SUMMARY | 2024-11-19 02:48 | XMS_ITS ---
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 Name Role Phone Parker Aragon Primary Care Provider UnavailAubree Fontana Unavailable [phone] Romelia Simmons Unavailable [phone] Allergies Allergen (clinical drug ingredient) Drug/Non Drug [...] Diclofenac Not-Takin g Vitamin D3 1.25 MG (48536 UT) 1 capsule Orally once a week [...] W/U Status Risk Notes Problem Migraine with aura (9347364) Migraine with aura, not intractable, without status migrainosus (G43.109) Active confirmed Problem Chronic migraine without aura, non-refractor y (disorder) (734246695957 100) Migraine without aura, not intractable, without status migrainosus (G43.009) Active confirmed Encounters Encounter Location Date Provider Diagnosis [facility] [address] [address] 05/07/2024 Romelia Simmons Chronic migraine without aura, not intractable, [...] * Fernanda HELMSDOB:1990 ( 33 yo F)Acc No.[id number]:05/07/2024 Progress Notes Patient: Fernanda GOMES Provider: Momo Simmons APRN :1990 A ge:33 Y S ex:Female Date:05/07/2024 Address:[address] [place], [place] [id number] Pcp:Parker Aragon Subjective: * Chief Complaints: * 1 . Headache follow-up. 2. Vestibular migrainw. 3. MOH. 4. Myalgia. 5. Insomnia. * HPI: * Introduction: HPI: Rebecca Helms, who presented for follow-up for [...] headaches. 4 . PT for myofascial work ([facility] PT in [place]). 5 . Discuss with PCP going back on [facility] gabapentin which she was on previously and it helped. Discuss with PCP switching from duloxetine to SSRI. * Interval History: Notes P harmacologic Treatment: [...] headache/migraine days/month: 29/01- L ast visit headache/migraine days/month: C urrent headache/migraine days/month: / I nterval [...] y es. P SYCHOLOGY: Positive for R eviewed and except as discussed above in the HPI is otherwise negative, Reviewed and except as discussed above in the HPI is otherwise negative. * Medical History: R A, Fibromyalga, Anxiety, Depression, IBS, GERD, Migraine with aura. * Family History: F ather: alive, Yes. M other: alive, Yes. C marcia: Yes. 1 brother(s) , 1 sister(s) - [...] of carpet? 3 0 Do you have [id number] carpeting? Y es What is the age [...] Subcutaneous , Taking Vitamin D3 1.25 MG (62707 UT) Capsule 1 capsule Orally once a [...] examination: General appearance: P leasant, well-developed, no distress. HEENT: N o papilledema. [...] Management * Billing Information: * Visit Code: 19196 Office Visit, Est Pt., Level 4. Modifiers: 25 50323 Office Visit, Est Pt., Level 3. Modifiers: 25 94461 Office Visit, Est Pt., Level 5. Modifiers: 25 * Procedure Codes: 36912 PT-FOCUSED HLTH RISK ASSMT. G8427 DOC MEDS VERIFIED W/PT OR RE. G2211 Complex e/m visit add on. * Electronic signature of GARRET Masters on 11/19/2024 at 02:48 AM CDT Sign off status: Pending * Provider: Momo Simmons APRN Date: Generated for Buster barrera/Loree/eTransmitting on: 0 11/19/2024 02:48 AM CDT History and Physical Notes * HPI (History of Present Illness) Category Sub-Category Detail Notes Category Not es *Introduction HPI: Fernanda Helms, who presented for follow-up for chronic migraine, vestibular migraine, MOH, myalgia, and insomnia *Initial History INITIAL VISIT HISTORY: She has several complaints. She reports that she has systemic autoimmune disease, reporting a history of RA, treated with Symponi infusions and NSAIDs. She has a history of fibromyalgia and lumbar DDD. She has a history of depression/anxiety . She also has a history of migraine. Headache History: -Headache Onset: Adolescence-Headac he Description #1: Prodrome: Sometimes gets nausea first. Pain phase: Starts in the neck usually, but sometimes starts in frontal region, usually right unilateral but sometimes bilaterally, restricts activity, pain is pressure and sometimes throbbing, usually reaches peak intensity gradually, associated with photophobia/phonop hobia and nausea, and more recently dizziness endorses [...] rebound headaches. 4. PT for myofascial work ([facility] PT in [place]). 5. Discuss with PCP going back on [...] up to 3-4 days/weekHeadache Frequency:Initial/baseline headache/migraine days/month: 29/01-14Last visit headache/migraine days/month: 29/01-14Current headache/migraine days/month: /Interval History:Last visit was on [...]
--- OUTSIDE RECORDS SUMMARY | 2024-11-19 02:48 | XMS_ITS ---
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 Gómez Armstrong Unavailable [phone] REASON FOR VISIT Qulipta PA Denied/Prescribed Propranolol Medications Medication SIG (Take, Route, Fr equency, Duration) Notes Start Date End Date Status Propranolol HCl 20 MG 1 tablet Orally at bedtime for 30 days 04/14/2024 Active Encounters Encounter Location Date Provider Diagnosis [address] [address] 04/09/2024 Gómez Armstrong Plan Of Treatment Medication Medication Name Sig Start Date Stop Date Notes Propranolol HCl 20 MG 1 tablet Orally at bedtime for 30 days 04/14/2024 Progress Notes * Fernanda CHONGDOB:1990 ( 33 yo F)Acc No.[id number]:04/09/2024 Patient: Jenna ALEXEI Fernanda :1990 A ge:33 Y S ex:Female Address:[address] [place], [address] * Refills Start Propranolol HCl Tablet, 20 MG, Orally, 30, 1 tablet, at bedtime, 30 days, Refills=2 * true * Date: Generated for Printi ng/Faxing/eTransmitting on: 0 11/19/2024 02:48 AM CDT
[2024-11-19] MEDS: ACETAMINOPHEN 500 MG TABLET 1000 MG PO (11:21)
[2024-11-19] MEDS: KETOROLAC 15 MG/ML VIAL (*BKC) IV PUSH (11:21)
[2024-11-19] MEDS: LACTATED RINGERS 1,000 ML 30 ML IV CONT ×2 (11:21→14:31)
--- NOTE | 2024-11-19 11:29 | P.PNAN_ITS ---
Anes - Initial Pre Proc Eval Procedure: Operation Date: 11/19/24 12:00 Proposed Procedures p Laparoscopic Cholecystectomy - Freeman Winkler MD Date/Time: 11/19/24 11:29 Surgeon: Freeman Winkler MD Pre Op Diagnosis: Chr Cholecystitis with Stone Patient Data Age: 33 Gender: F Height: 1.57 m Weight: 100 kg Allergies Allergy/AdvReac Type Severity Reaction Status Date / Time nickel Allergy Blister Verified 11/19/24 11:19 Sulfa (Sulfonamide Allergy Hives Verified 11/19/24 11:19 Antibiotics) azathioprine AdvReac Mild Nausea and Verified 11/19/24 11:19 Vomiting caffeine AdvReac Redness of Verified 11/19/24 11:19 Skin latex AdvReac Itching Verified 11/19/24 11:19 Home Medications Medication Instructions Recorded Confirmed Type azelastine 137 mcg (0.1 %) nasal 137 mcg intranasal Q12H 04/13/24 11/11/24 History spray cholecalciferol (vitamin D3) 1,250 1,250 mcg PO WEEKLY 04/13/24 11/11/24 History mcg (50,000 unit) capsule fluticasone propionate 50 1 spray intranasal DAILY 04/13/24 11/19/24 History mcg/actuation nasal spray,suspension (Allergy Relief (fluticasone)) duloxetine 20 mg capsule,delayed 20 mg PO DAILY 11/11/24 11/19/24 History release gabapentin 600 mg tablet 600 mg PO HS 11/11/24 11/19/24 History Laboratory Tests 11/19/24 11:08 Amylase Pending Lipase Pending Patient hx anesthesia problems: none Family hx anesthesia problems: none Results Review: All pre-operative results and documents have been reviewed as part of the pre- operative evaluation. [facility] Past Medical History Medical History Mother currently breast-feeding Obesity Food intolerance in adult Dysphagia Bright red blood per rectum Cholelithiasis Irritable bowel syndrome with diarrhea Chronic diarrhea Morbid obesity Anxiety GERD (gastroesophageal reflux disease) Migraines Gestational HTN Rheumatoid arthritis Surgical History Surgical History History of colonoscopy History of esophagogastroduodenoscopy (EGD) Family History Family History Mother Disc degeneration History of cholecystectomy Bipolar 1 disorder Anemia Autoimmune disorder Sibling Bipolar 1 disorder Anemia Father High cholesterol Hypertension Anemia Social History Social History Smoking status: Never smoker Alcohol intake: never Substance use: never Substance use type: does not use Lack of Transportation: No Lack of Food: Never True Current Housing: I Have Housing Concerned About Future Housing: No Difficulty Paying Gas/Electric Bills: No Difficulty Paying for Meds: No Currently Unemployed: No Education: High School Diploma/GED Difficulty w/ Childcare or Family Care: No Living arrangements: with family Spiritual care concerns: No Anes - Eval Final PreProcedure Day of Procedure 11/19/24 11:29 Patient weight: morbidly obese Heart: regular rate and rhythm Lungs: clear to auscultation Airway: Mallampati scale class II Neurological: alert and oriented Last oral intake: >/= 8 hours ASA classification: III Emergent: no Anesthetic plan: proceed Anesthesia type and monitoring: general ETT and standard monitoring Results Review: All pre-operative results and documents have been reviewed as part of the pre- operative evaluation. Informed Consent: The patient's anesthetic plan and its attendant risks and benefits were discussed with the patient/family/POA. Questions were solicited and answers provided to the satisfaction of the patient/family/POA.
[2024-11-19 11:32] LABS: Amylase 65 U/L (30-110); Lipase 93 U/L (23-300)
[2024-11-19 12:08] LABS: BEDSIDEPREGUCG Negative (Negative)
--- NOTE | 2024-11-19 12:36 | WPDHPUPDATE1 ---
History and Physical Update Update Date/Time: 11/19/24 12:36 History and Physical has been reviewed, including an updated exam of the patient. There are NO changes in the patient's condition. Risks, benefits, and alternatives have been discussed and questions answered. Patient agrees to proceed with procedure.
[2024-11-19] MEDS: ceFAZolin 2 GM/D5W 50 ML 2 GM/50 ML BAG IVPB (13:04)
[2024-11-19] MEDS: BUPIVACAINE/EPINEPHRINE 0.5% 30 ML VIAL INFILTRATE (13:34)
--- NOTE | 2024-11-19 14:39 | P.OP_ITS ---
Procedure Note - Detailed Date of Procedure 11/19/24 Pre-op Diagnosis Chr Cholecystitis with Stone Post-op Diagnosis Same Procedure Performed Laparoscopic cholecystectomy Surgeon Freeman Winkler MD [employer] [place] [facility] Anesthesia General and Local Indications Patient has at least a 3 year history of back pain that would radiate around to her right upper quadrant. It was associated with nausea. It was much worse after eating fatty foods. She had an ultrasound of the gallbladder which showed gallstones. She is taken to surgery now for laparoscopic cholecystectomy Findings Chronic inflammation with thickened gallbladder wall. There were omental adhesions to the gallbladder. Cystic duct was not dilated. There was a bifurcated cystic artery. No liver abnormalities were appreciated. Description of Procedure Patient was taken to surgery and induced into general anesthesia. The abdomen is prepped and draped. Trocars were placed in the usual fashion using [employer] optical trocars and a 5 mm camera. Gallbladder was obviously chronic inflamed with thickened wall and many stones in the body of the gallbladder. The apex of the gallbladder was intrahepatic as well. We took down adhesions of the omentum to the gallbladder. The gallbladder was then able to be retracted anterosuperiorly. Traction was then placed on the infundibulum and further adhesions in the infundibulum and triangle of Calot were carefully taken down. Cautery was used for hemostasis. After fairly extensive dissection, the cystic duct and its juncture with the common bile duct was well exposed. The cystic artery was dissected and was noted to be bifurcated with 1 branch coming up the medial aspect of the gallbladder and the other was a lateral branch. Both of these branches were fairly sizable and there were dissected up to where they spread over the surface of the gallbladder to ensure they were in fact bifurcated cystic artery branches. Each branch was then securely clipped and divided. The cystic duct was securely clipped and divided. The gallbladder was then dissected carefully away from its remaining attachments to the liver. No entry into the gallbladder occurred. Once the gallbladder was free from the liver, it was placed in an Endo-Catch bag and retrieved through the 10 11 epigastric trocar. The epigastric trocar was replaced. We reviewed the right upper quadrant and gallbladder fossa. This area was irrigated and suction to her 3 different times. No sign of bleeding or bile leakage was noted. We then used the Jeremías cone and a suture pass device. An 0 Vicryl was used and the fascia at the epigastric trocar site was closed. We then evacuated CO2 and removed the trocar sleeves. Skin wounds were closed with subcuticular 4-0 Monocryl skin suture. The wounds were dressed with Exofin surgical adhesive. Patient was awakened and taken to recovery in good condition. Sponge and needle counts were correct x2. Estimated Blood Loss -10 Drains No Packing No Pathology Yes (Gallbladder) Complications None Condition Stable Disposition PACU [facility] Billing Surgery - Charge Forward: Surgery Billing (Laparoscopic cholecystectomy)
[2024-11-19] MEDS: ONDANSETRON INJ 4 MG/2 ML VIAL IV PUSH (14:45)
[2024-11-19] MEDS: diphenhydrAMINE HCl INJ 50 MG/ML VIAL 25 MG IV PUSH (15:12)
[2024-11-19] MEDS: oxyCODONE HCL (*CRX) 5 MG TAB IR PO (15:57)
== END 2024-11-19 16:38 | disposition home or self-care (01) ==
PROVIDERS: PCP Internal Medicine; Visit Provider Surgery
PROC: 0FT44ZZ Resection of Gallbladder, Percutaneous Endoscopic Approach (ICD-10-PCS; CPT 47562; principal; 2024-11-19 12:00)
DX: K80.10 Calculus of gallbladder with chronic cholecystitis without obstruction (principal); K66.0 Peritoneal adhesions (postprocedural) (postinfection); G89.18 Other acute postprocedural pain; K21.9 Gastro-esophageal reflux disease without esophagitis; K58.0 Irritable bowel syndrome with diarrhea; F41.9 Anxiety disorder, unspecified; M06.9 Rheumatoid arthritis, unspecified; E66.01 Morbid (severe) obesity due to excess calories; Z68.41 Body mass index [BMI] 40.0-44.9, adult
CPT/HCPCS: 47562; 36415; 82150; 83690; 88304; A9270; J0690; J1100; J1200; J1885; J2003; J2250; J2405; J2704; J3010; J7120

== ENCOUNTER 2024-12-03 10:11 | Outpatient (CLI) | payer BC, SELFPAY ==
--- OUTSIDE RECORDS SUMMARY | 2024-12-03 10:20 | XMS_ITS | Clinical Summary ---
Author Organization [facility] Address [address] 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 This disclosure is being madepursuant to the Care Everywhere program and may not contain all information available regarding this patient. Last updated 18.[facility] Allergies Active Allergy Reactions Criticality Noted Date [...] 2:37 PM CDT Height 157.5 cm (5' 2) 02/21/2022 2:37 PM CDT Body Mass Index [...] patient's age to complete this topic Insurance [facility] SELF PAY NO INSURANCE Member Subscriber Plan / Payer (Ef fective for All Dates) Name:Disha Chong Member ID:Not on file Relation to Subscriber:Not on file Name:DISHA CHONG Subscriber ID:Not on file (Home) Address: [address] [place] [address] Payer ID:Not on file Group ID:Not on file Type:Self Pay Address: [place], [place] SELF PAY NO INSURANCE Member Subscriber Plan / Payer (Ef fective for All Dates) Name:Disha Chong Member ID:Not on file Relation to Subscriber:Not on file Name:DISHA CHONG Subscriber ID:Not on file Address: [address] [place] [phone] Payer ID:Not on file Group ID:Not on file Type:Self Pay Address: [place], [place] [facility] Address: [facility] [id number] [place] [phone] * Guarantor: DISHA CHONG Account Type Relation to Patient Date of Phone Billing Address Personal/Family Spouse
[2024-12-03 11:22] LABS: Thyroid Stimulating Hormone 0.637 uIU/mL (0.465-4.680)
[2024-12-04 01:08] LABS: Progesterone <0.5 ng/mL
[2024-12-04 07:24] LABS: FSH 4.9 mIU/mL; LH 6.5 mIU/mL; Prolactin 5.7 ng/mL
[2024-12-04 08:14] LABS: Sex Hormone Binding Globulin 28 nmol/L (17-124)
[2024-12-08 10:48] LABS: Testosterone Free 1.9 pg/mL (0.1-6.4); Testosterone Total 17 ng/dL (2-45)
== END 2024-12-03 10:12 | disposition home or self-care (01) ==
LOC: ANHLAB 10:18
PROVIDERS: PCP Internal Medicine; Visit Provider Student in an Organized Health Care Education/Training Program
DX: N92.6 Irregular menstruation, unspecified (principal)
CPT/HCPCS: 36415; 82670; 83001; 83002; 83036; 84144; 84146; 84270; 84402; 84403; 84443